=== PATIENT | male | born 1940 | race Caucasian/White ===

== ENCOUNTER 2017-07-04 12:27 | Inpatient (IN) | payer MEDICARE ==
[2017-07-04] MEDS ORDERED: fentaNYL* 50 MCG/ML 2 ML VIAL (100 MCG VIAL) IV SLOW PU ONE ×3 (12:48→19:39)
[2017-07-04 13:18] LABS: ABS Basophils 0.1 10^3/ul (0-0.2); ABS Eosinophils 0.1 10^3/ul (0-0.6); ABS Lymphocytes 1.8 10^3/ul (1.0-4.8); ABS Monocytes 0.4 10^3/ul (0-0.8); ABS Neutrophils 5.3 10^3/ul (1.5-7.7); ABS Nucleated RBC 0 10^3/ul; Hematocrit 35 % (42-52); Hemoglobin 11.6 g/dl (14.0-18.0); Mean Corpuscular HGB Conc 34 g/dl (31-36); Mean Corpuscular Hemoglobin 30 pg (27-31); Mean Corpuscular Volume 89 fL (80-94); Mean Platelet Volume 10 um3 (7.4-10.4); Nucleated Red Blood Cells % 0; Platelet Count 162 10^3/ul (150-450); Red Blood Count 3.87 10^6/ul (4.0-5.4); Red Cell Distribution Width 14 % (10.5-15); White Blood Count 7.7 10^3/ul (3.5-10.8)
[2017-07-04 13:24] LABS: INR 0.85 (0.77-1.02)
[2017-07-04 13:30] LABS: EGFR Non-African American 36.6 (>60)
--- NOTE | 2017-07-04 14:24 | RAD ---
Indication: Left hip pain. 2 views of left hip and AP view of the pelvis demonstrates no fracture. Minimal degenerative changes of the left hip is noted. Minimal degenerative changes of the right hip is noted. Pelvic ring and sacroiliac joints are unremarkable. IMPRESSION: MILD DEGENERATIVE CHANGES OF THE LEFT HIP WITHOUT FRACTURE.
--- NOTE | 2017-07-04 16:03 | RAD ---
Indication: Left leg edema. Duplex Doppler sonography of the deep venous system of the left lower extremity deep venous system was performed. Bilaterally the common femoral veins appear patent and compressible. Left proximal greater saphenous vein, proximal deep femoral vein, femoral vein, popliteal vein, posterior tibial veins and peroneal veins appear patent and compressible. IMPRESSION: NO EVIDENCE OF DEEP VENOUS THROMBOSIS IS IDENTIFIED.
[2017-07-04] MEDS ORDERED: NS 0.9% 1000 ML* 1,000 ML IV ONE (16:22)
[2017-07-04 16:47] LABS: Urine Appearance Clear; Urine Blood Negative (Negative); Urine Color Straw; Urine Ketones Negative (Negative); Urine Protein Negative (Negative); Urine Specific Gravity 1.009 (1.010-1.030); Urine Urobilinogen Negative (Negative)
[2017-07-04] MEDS ORDERED: Gadobenate* (CONTRAST) 529 MG/ML 10 ML SDV IV ONE (18:21)
--- NOTE | 2017-07-04 19:07 | RAD ---
Indication: Bilateral leg weakness. Image sequences: Sagittal T1, T2, STIR, axial T1 and T2-weighted images of the lumbar spine were obtained. Coronal and sagittal reconstructed images were obtained. Postcontrast fat-sat axial and sagittal T1-weighted images were also repeated. There are postoperative changes at the L5-S1 level presumably from decompressive laminectomy. There is suggestion of some epidural enhancing tissue although no fluid collection is identified. This may represent postoperative change. There is however at L3-L4 broad-based protrusion and facet and ligamentous hypertrophy resulting in a severe spinal stenosis at the L3-L4 level. At L5-S1 broad-based protrusion is noted. No central or foraminal stenosis is noted. At L4-L5 no focal protrusion is noted. Likely postoperative changes are noted. Moderate degree of facet arthropathy is noted. At L3-L4 there is broad-based protrusion. Facet and ligamentous hypertrophy results in a moderate to severe spinal stenosis at the L3-L4 level. At L2-L3 and L1-L2 no disc protrusion is identified. IMPRESSION: There is circumferential enhancing epidural tissue extending from approximately L4 through L5-S1. This is felt to represent postoperative change and scarring. This does not appear to be causing any mass effect on the thecal sac. There is severe spinal stenosis at L3-L4 due to facet and ligamentous hypertrophy and broad-based protrusion.
[2017-07-04] MEDS ORDERED: methylPREDNISolone TAB* 4 MG PO ONE (20:52)
[2017-07-04] MEDS ORDERED: fentaNYL PATCHs 100 MCG/HR TRANSDERM SCH (22:00)
[2017-07-04] MEDS: Cyclobenzaprine TAB* 10 MG PO PRN (23:36)
[2017-07-04] MEDS: Heparin VIAL(*) 5000 UNITS/ML VIAL (FIVE THOUSAND) SUBCUT SCH (23:41)
[2017-07-04] MEDS: fentaNYL PATCH 50 MCG/HR TRANSDERM SCH (23:52)
[2017-07-04] MEDS: fentaNYL PATCH 50 MCG/HR ONE ×2 (23:57→23:59)
--- NOTE | 2017-07-05 00:09 | HP ---
CC: Dr. Amezquita* HISTORY AND PHYSICAL: DATE OF ADMISSION: 07/04/17 PRIMARY CARE PROVIDER: Dr. Amezquita. CHIEF COMPLAINT: Left leg pain. HISTORY OF PRESENT ILLNESS: Mr. Harris is a 76-year-old male who has a history of chronic pain radiating from his back down to his knees who presented to the emergency room today with complaints of severe left leg pain. 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 He states he worked for 3 to 3-1/2 hours. He then went to go get gas. After he completed that task, he was sitting in his recliner for a while. At approximately 5 to 5:30 p.m., the patient decided he needed to get up to the bathroom. He states the bathroom was about 10 feet away and he got only 5 feet before he had severe left leg pain. The patient describes the pain as being in the left posterior mid femur region. The patient was able to ultimately get himself to the bathroom; however, the pain has progressed and at this point, he is no longer able to ambulate. The patient, of note, also has been having left-sided weakness including left arm and left leg weakness dating back approximately 3 weeks. The patient has been set up to see a neurologist through the [employer] [facility] system around 07/13/17. The patient notes that he ordinarily will end up dragging his left leg due to the weakness. PAST MEDICAL HISTORY: 1. Coronary artery disease, [id number], 2-vessel disease. 2. Type 2 diabetes. 3. Mixed dyslipidemia. 4. Hypertension. 5. Erectile dysfunction. 6. BHARATI. 7. Chronic back pain. 8. Stage 3 chronic kidney disease. 9. History of DVT following lumbar spinal stenosis surgery. 10. Depression. 11. Restless leg syndrome. 12. Obesity. 13. Osteoarthritis. PAST SURGICAL HISTORY: 1. Laminectomy. 2. Bilateral partial knee replacements. MEDICATIONS: 1. Aspirin 81 mg p.o. daily. 2. Coreg 25 mg p.o. twice daily. 3. Baclofen 5 mg p.o. t.i.d. 4. [place]-3 fatty acid 2 caps p.o. daily. 5. Gabapentin 600 mg p.o. daily. 6. Folic acid 400 mcg p.o. daily. 7. Fenofibrate 160 mg p.o. daily. 8. Celexa 20 mg p.o. daily. 9. Fentanyl patch 100 mcg topically q.72 hours. 10. Simvastatin 40 mg q.h.s. 11. Requip 0.5 mg p.o. q.h.s. 12. Protonix 40 mg p.o. q.h.s. 13. Percocet 10/325 one tab p.o. q.6 hours p.r.n. pain. 14. Hydralazine 25 mg p.o. t.i.d. 15. Humulin insulin via insulin pump. ALLERGIES: MORPHINE, PENICILLIN and ADHESIVE TAPE. FAMILY HISTORY: Mother at the age of 83. She had an ID. Father around the age of 80; he had Alzheimer's. SOCIAL HISTORY: The patient is a former smoker of approximately 30 years. He quit approximately 20 years ago. He quit drinking alcohol about 20 years ago. 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 He is . He has 2 biologic children and he and his have fostered approximately 20 children of which they have adopted 4. Most recently, he and his adopted a 6-year- old boy just a couple of weeks ago. REVIEW OF SYSTEMS: A complete 11-system review of systems was obtained. Pertinent positives and negatives are as per HPI and otherwise, the patient also complains of mild cough and shortness of breath stating this he developed this each winter and he also complains of depression. Otherwise, review of systems is negative. PHYSICAL EXAMINATION GENERAL: The patient is a well-developed, elderly obese male, sitting in the stretcher, in no acute distress. VITAL SIGNS: Blood pressure 155/69, pulse 63, respirations 16, temp 98.4, O2 sat 93% on room air. HEENT: Pupils are equal. They are round. Extraocular muscles are intact. Oropharynx is clear. Oral mucosa is moist. The patient wears upper and lower dentures. There is no submandibular, cervical or supraclavicular adenopathy. Thyroid is not enlarged. No thyroid nodules are noted. PULMONARY: Lungs are clear to auscultation anteriorly. CARDIAC: Normal S1 and S2. Regular rate and rhythm. I do not appreciate any murmurs. There is no lower extremity edema. ABDOMEN: Bowel sounds present. Abdomen is soft, nontender and nondistended. MUSCULOSKELETAL: There is no cyanosis or clubbing of the digits. There is limited range of motion of the bilateral lower extremities due to severe pain in the left posterior thigh. NEURO: Cranial nerves II through XII are grossly intact. Sensation is intact to light touch throughout. Strength is reduced in the left upper extremity specifically left clerical adjuster and left lower extremity though adequate strength testing of the lower extremities is limited due to severe pain. SKIN: Warm and dry. There are no rashes. The patient does have healing wounds to the right anterior sadler that he states he developed after mild trauma. PSYCH: The patient is alert. He is oriented x3. Affect appears appropriate. LABORATORY DATA/DIAGNOSTIC STUDIES: WBC 7.7, hemoglobin 11.6, hematocrit 35, platelets 162. INR 0.85. Sodium 135, potassium 4.8, chloride 105, CO2 25, BUN 35, creatinine 1.82, glucose 167, lactic acid 0.7, calcium 9.0, bilirubin 0.4, AST 19, ALT 14, alk phos 46, albumin 4.1. Urinalysis revealed a specific gravity of 1.009 and otherwise negative for signs of infection. Left hip x-ray reveals mild degenerative changes of the left hip without fracture. Left lower extremity venous Doppler negative for DVT. Lumbar spine MRI reveals circumferential enhancing epidural tissue extending from approximately L4 through L5-S1, which itself represent postoperative change and scarring. This does not appear to be causing any mass effect on the thecal sac. There is severe spinal stenosis at L3-4 due to facet and ligamentous hypertrophy and broad-based protrusion. ASSESSMENT AND PLAN: Mr. Harris is a 76-year-old male who has a history of chronic back pain, type 2 diabetes for which she manages with an insulin pump, coronary artery disease, hypertension and obstructive sleep apnea who presents to the emergency room with complaints of severe left posterior thigh pain. 1. Left posterior thigh pain. The etiology of this is not clear. I do question if this may be related to the severe stenosis noted at L3-4. The patient appears to be having grabbing pain every now and then. We will go ahead and try Flexeril 10 mg p.o. q.8 hours as well as methylprednisolone 25 mg p.o. x1 now. If the patient does have some mild improvement in his symptoms with the initiation of steroids, this taper can continue by 4 mg a day. The patient will be placed on p.r.n. Tylenol, oxycodone 5 to 10 mg every 4 hours for pain and fentanyl 50 mcg IV q.3 hours p.r.n. pain in addition to his 100 mcg fentanyl patch. The patient will have PT ordered. A neurosurgical consultation can be considered tomorrow morning for the severe spinal stenosis seen on MRI. In addition to the severe pain, the patient has been complaining of left lower extremity and upper extremity weakness. He was due to see Neurology as an outpatient later this month. If weakness continues to be an issue, a Neurology consultation could also be requested at this hospitalization. 2. Type 2 diabetes. I will go ahead and check a hemoglobin A1c. Blood glucose monitoring will be obtained before meals and bedtime. The patient will continue on his insulin pump and bolus with that as needed. 3. Coronary artery disease. The patient will be maintained on his aspirin, Coreg, TriCor, and simvastatin. He has no complaints of chest pain at this point. The patient follows with Dr. Davila as an outpatient and can follow up with her at his routine followup appointment. 4. Hypertension. The patient's blood pressure is [id number] elevated at this time, though I suspect this is likely related to pain. For now, we will continue to monitor his blood pressure on his home mediation regimen. 5. Stage 3 chronic kidney disease. The patient has [place] [facility] [place] at which time his creatinine ranged from 1.5 to 1.7. His creatinine now is slightly worse, but this likely represents progression of his chronic kidney disease. We will monitor his creatinine intermittently. 6. Restless legs. We will continue Requip. 7. Gastroesophageal reflux disease. Continue Protonix. 8. DVT prophylaxis. According to the Adult Thrombosis Prophylaxis Risk Factor Assessment Guide, the patient has a total risk factor score of 3 making him high risk. He will be placed on heparin 5000 units q.8 hours. 9. Code status is DNR. TIME SPENT: 65 minutes were spent admitting this patient. [id number]/[facility] #: [id number] [place]
--- NOTE | 2017-07-05 01:07 | ED ---
Femi Marsh Julia, scribed for Kriss Alejo MD on 07/04/17 at 1309 . Complex/Multi-Sys Presentation - HPI Summary HPI Summary: This patient is a 76 year old M BIBA ([facility]) to [facility] accompanied by family with a chief complaint of sudden L posterior leg in hamstring area since 17:00 yesterday. Patient reports SOB unchanged from baseline, and chills. Patient denies chest pain. The patient rates the pain 5/10 in severity and a 10/ 10 at standing. Symptoms aggravated by attempting to stand. Symptoms alleviated by nothing. EMS reports that patient took 2 Percocet tabs to manage pain. EMS report 98% O2 saturation on room air, blood glucose of 140, BP or 156/66, temperature of 98.4,and HR of 64. Patient denies trauma but states he slipped on ice while getting mail 07/01/17. Patient states that he caught himself with his hands and denies that he hit his pelvis during fall. Patient had lumbar spinal injection by Dr. Bearden(sp?) on 07/01/17, he reports no pain afterwards. Pt was able to ambulate unassisted and work around the home after the spinal injection until sudden onset of pain in his left post thigh yesterday at 17:00. Pt is concerned it is a DVT as he had a prior DVT after spinal stenosis surgery by Dr. Joseph several years ago. EMS state that pt was unable to even bear weight to stand and transfer to the stretcher for transport. Daughter states pt 's left leg gave out when he tried to stand yesterday due to pain. Patient has extensive cardiac history, history of blood clots, bilateral knee replacements. Patient is a type 2 diabetic with an insulin pump because of previous issues controlling blood glucose, but now checks 4x a day. Patient will be seeing a neurologist in [place], [place] due to L sided weakness, upper extremity and lower extremity. Pt states he drags his left foot, and with the pain since yesterday , he is dragging his left foot even more. Pt denies fever. - History Of Current Complaint Chief Complaint: EDExtremityLower Time Seen by Provider: 07/04/17 12:39 Hx Obtained From: Patient, Family/Linotype Operator - daughter, EMS Onset/Duration: Sudden Onset, Still Present Timing: Constant Severity Currently: Severe Severity Initially: Severe Location: Pain At: - L hamstring Character: Sharp Aggravating Factor(s): standing Alleviating Factor(s): nothing Associated Signs And Symptoms: Positive: SOB, Back Pain, Other - SOB unchanged from baseline, and chills Related History: Other - lumbar spinal injection 07/01/17 - Allergies/Home Medications Allergies/Adverse Reactions: Allergies Allergy/AdvReac Type Severity Reaction Status Date / Time Morphine Allergy Severe Hallucinati Verified 06/23/17 09:50 ons Penicillin V Allergy Intermediate Hives Verified 06/23/17 09:50 [From Penicillin VK Potassium] Adhesive Tape AdvReac Intermediate Hives; Verified 06/23/17 09:50 Blisters PMH/Surg Hx/FS Hx/Imm Hx Previously Healthy: No Endocrine/Hematology History: Reports: Hx Diabetes Denies: Hx Thyroid Disease Cardiovascular History: Reports: Hx Coronary Artery Disease, Hx Deep Vein Thrombosis - multiple DVT's/clotting issues, Hx Hypercholesterolemia, Hx Hypertension Respiratory History: Reports: Hx Sleep Apnea - current BiPAP user Denies: Hx Asthma, Hx Chronic Obstructive Pulmonary Disease (COPD) GI History: Reports: Hx Gastroesophageal Reflux Disease Denies: Hx Ulcer History: Reports: Hx Chronic Renal Failure - stage III Musculoskeletal History: Reports: Hx Arthritis, Hx Back Problems - Hx of low back pain, lower back laminectomy, Hx Orthopedic Injury - (left) shoulder surgery, Other Musculoskeletal History - Hx of Right Shoulder Pain; Restless Leg Syndrome Neurological History: Reports: 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 (left) shoulder surgery per records. 1984 cervical neck FX w/fusion. lower back laminectomy. Right knee replacement03/04. left knee replacement 05/04 Infectious Disease History: No Infectious Disease History: Denies: Hx Hepatitis, Hx Human Immunodeficiency Virus (HIV), Traveled Outside the [place] in Last 30 Days - Family History Known Family History: Positive: Cardiac Disease, Diabetes, Other - alzheimers and CA - Social History Lives: With Family Alcohol Use: None Substance Use Type: Reports: None Substance Use Comment - Amount & Last Used: fentanyl patch and percocet Smoking Status (MU): Former Smoker Type: Cigarettes Review of Systems Positive: Chills Cardiovascular: Negative Respiratory: Negative Gastrointestinal: Negative Positive: Arthralgia - left leg pain Skin: Negative Positive: Weakness - left upper and lower extremity Psychological: Normal All Other Systems Reviewed And Are Negative: Yes Physical Exam - Summary Physical Exam Summary: Appearance: Chronically Ill-appearing, severe pain distress, obese Skin: Warm, color reflects adequate perfusion, Patient is wearing fentanyl patch on posterior R shoulder Head: Normal Head/Face inspection Eyes: Conjunctiva clear ENT: Normal inspection Neck: Supple, no nodes, no JVD. Respiratory: Lungs clear, Normal breath sounds, no respiratory distress Cardio: RRR, No murmur, pulses normal, brisk capillary refill Abdomen: soft, nontender Bowel sounds: present Musculoskeletal: decreased strength left information assurance specialist and left leg/ ROM intact. No calf tenderness. No edema. Lower back tenderness. No ecchymosis or erythema at site of injections (3 injection sites at right post superior iliac crest). No pain on palpation of L hip or femur. Muscle wasting in the L thenar eminence. No obvious swelling or deformity of left leg. Neuro: Alert, muscle tone normal, facial symmetry, speech normal, sensory/motor weakness left leg and left information assurance specialist. Able to lift left leg off stretcher, decreased plantar flexion Psychological: Normal Triage Information Reviewed: Yes Vital Signs On Initial Exam: Initial Vitals Temp Pulse Resp BP Pulse Ox 98.4 F 62 14 146/57 96 07/04/17 12:33 07/04/17 12:33 07/04/17 12:33 07/04/17 12:33 07/04/17 12:33 Vital Signs Reviewed: Yes - [place] Coma Scale Coma Scale Total: 15 Diagnostics - Vital Signs Vital Signs Temp Pulse Resp BP Pulse Ox 07/04/17 12:33 98.4 F 62 14 146/57 96 - Laboratory Lab Results: Lab Results 07/04/17 07/04/17 07/04/17 Range/Units 13:11 13:11 13:11 WBC 7.7 (3.5-10.8) 10^3/ul RBC 3.87 L (4.0-5.4) 10^6/ul Hgb 11.6 L (14.0-18.0) g/dl Hct 35 L (42-52) % MCV 89 (80-94) fL MCH 30 (27-31) pg MCHC 34 (31-36) g/dl RDW 14 (10.5-15) % Plt Count 162 (150-450) 10^3/ul MPV 10 (7.4-10.4) um3 Neut % (Auto) 68.9 (38-83) % Lymph % (Auto) 24.0 L (25-47) % [place] % (Auto) 5.4 (1-9) % Eos % (Auto) 1.0 (0-6) % Baso % (Auto) 0.7 (0-2) % Absolute Neuts (auto) 5.3 (1.5-7.7) 10^3/ul Absolute Lymphs (auto) 1.8 (1.0-4.8) 10^3/ul Absolute Monos (auto) 0.4 (0-0.8) 10^3/ul Absolute Eos (auto) 0.1 (0-0.6) 10^3/ul Absolute Basos (auto) 0.1 (0-0.2) 10^3/ul Absolute Nucleated RBC 0 10^3/ul Nucleated RBC % 0 INR (Anticoag Therapy) 0.85 (0.77-1.02) APTT 29.9 (26.0-36.3) seconds Sodium 135 (133-145) mmol/L Potassium 4.8 (3.5-5.0) mmol/L Chloride 105 (101-111) mmol/L Carbon Dioxide 25 (22-32) mmol/L Anion Gap 5 (2-11) mmol/L BUN 35 H (6-24) mg/dL Creatinine 1.82 H (0.67-1.17) mg/dL Est GFR ( Amer) 47.1 (>60) Est GFR (Non-Af Amer) 36.6 (>60) BUN/Creatinine Ratio 19.2 (8-20) Glucose 167 H (70-100) mg/dL POC Glucose (mg/dL) (70-100) mg/dL Lactic Acid (0.5-2.0) mmol/L Calcium 9.0 (8.6-10.3) mg/dL Total Bilirubin 0.40 (0.2-1.0) mg/dL AST 19 (13-39) U/L ALT 14 (7-52) U/L Alkaline Phosphatase 46 (34-104) U/L Total Protein 6.8 (6.4-8.9) g/dL Albumin 4.1 (3.2-5.2) g/dL Globulin 2.7 (2-4) g/dL Albumin/Globulin Ratio 1.5 (1-3) Urine Color Urine Appearance Urine pH (5-9) Ur Specific [place] (1.010-1.030) Urine Protein (Negative) Urine Ketones (Negative) Urine Blood (Negative) Urine Nitrate (Negative) Urine Bilirubin (Negative) Urine Urobilinogen (Negative) Ur Leukocyte Esterase (Negative) Urine Glucose (Negative) 07/04/17 07/04/17 07/04/17 Range/Units 13:11 16:22 16:33 WBC (3.5-10.8) 10^3/ul RBC (4.0-5.4) 10^6/ul Hgb (14.0-18.0) g/dl Hct (42-52) % MCV (80-94) fL MCH (27-31) pg MCHC (31-36) g/dl RDW (10.5-15) % Plt Count (150-450) 10^3/ul MPV (7.4-10.4) um3 Neut % (Auto) (38-83) % Lymph % (Auto) (25-47) % [place] % (Auto) (1-9) % Eos % (Auto) (0-6) % Baso % (Auto) (0-2) % Absolute Neuts (auto) (1.5-7.7) 10^3/ul Absolute Lymphs (auto) (1.0-4.8) 10^3/ul Absolute Monos (auto) (0-0.8) 10^3/ul Absolute Eos (auto) (0-0.6) 10^3/ul Absolute Basos (auto) (0-0.2) 10^3/ul Absolute Nucleated RBC 10^3/ul Nucleated RBC % INR (Anticoag Therapy) (0.77-1.02) APTT (26.0-36.3) seconds Sodium (133-145) mmol/L Potassium (3.5-5.0) mmol/L Chloride (101-111) mmol/L Carbon Dioxide (22-32) mmol/L Anion Gap (2-11) mmol/L BUN (6-24) mg/dL Creatinine (0.67-1.17) mg/dL Est GFR ( Amer) (>60) Est GFR (Non-Af Amer) (>60) BUN/Creatinine Ratio (8-20) Glucose (70-100) mg/dL POC Glucose (mg/dL) 109 H (70-100) mg/dL Lactic Acid 0.7 (0.5-2.0) mmol/L Calcium (8.6-10.3) mg/dL Total Bilirubin (0.2-1.0) mg/dL AST (13-39) U/L ALT (7-52) U/L Alkaline Phosphatase (34-104) U/L Total Protein (6.4-8.9) g/dL Albumin (3.2-5.2) g/dL Globulin (2-4) g/dL Albumin/Globulin Ratio (1-3) Urine Color Straw Urine Appearance Clear Urine pH 5.0 (5-9) Ur Specific [place] 1.009 L (1.010-1.030) Urine Protein Negative (Negative) Urine Ketones Negative (Negative) Urine Blood Negative (Negative) Urine Nitrate Negative (Negative) Urine Bilirubin Negative (Negative) Urine Urobilinogen Negative (Negative) Ur Leukocyte Esterase Negative (Negative) Urine Glucose Negative (Negative) Result Diagrams: 07/04/17 13:11 07/04/17 13:11 Lab Statement: Any lab studies that have been ordered have been reviewed, and results considered in the medical decision making process. - Radiology Hip/Pelvis XR Radiology Interpretation Completed By: Radiologist - MILD DEGENERATIVE CHANGES OF THE LEFT HIP WITHOUT FRACTURE. ED Physician has reviewed this report. Lumbar Spine MRI Radiology Interpretation Completed By: Radiologist - There is circumferential enhancing epidural tissue extending from approximately L4 through L5-S1. This is felt to represent postoperative change and scarring. This does not appear to be causing any mass effect on the thecal sac. There is severe spinal stenosis at L3-L4 due to facet and ligamentous hypertrophy and broad-based protrusion ED Physician has reviewed this report. - Additional Comments Diagnostic Additional Comments: Venous Doppler US reveals NO EVIDENCE OF DEEP VENOUS THROMBOSIS IS IDENTIFIED. ED physician has reviewed this report. Re-Evaluation - Re-Evaluation 1st Re-Evaluation Time: 16:10 Comment: Patient was updated about results and course of treatment. Since neg venous doppler, will now proceed with MRI to r/o epidural abscess or spinal cord compression to account for pt's pain and weakness. 2nd Re-Evaluation Time: 19:35 Change: Unchanged - still in pain, will give more Fentanyl Complex Multi-Symp Course/Dx Course Of Treatment: Patient was given 50mcgs of Fentanyl IVx3 and relief of pain only momentarily and then pain recurred. With pt's hx of DVT's and sudden onset of left thigh pain, venous doppler was done which was negative. Pt remained in significant pain, without definitive cause so MRI was done after discussion with Dr. Fernandez, who concurred that it was indication for an emergency MRI, with pt's recent hx of spinal injection and left leg pain and weakness. MRI reveals severe spinal stenosis at L3 and L4. and epidural thickening at L4-S1 consistent with prior surgery, without evidence of spinal cord compression or epidural abscess. Pt has continued pain despite Fentanyl IV x 3, in addition to his fentanyl patch. Pt will be admitted for further evaluation of left sided weakness (subacute) and further evaluation and treatment of intractable left leg pain. Dr. Guzman agrees to admit at 19:45. - Diagnoses Differential Diagnoses/HQI/PQRI: Sepsis, Other - DVT, epidural abscess, spinal cord compression Provider Diagnoses: Intractable neuropathic pain of left lower extremity, Spinal stenosis, Acute exacerbation of chronic low back pain - Physician Notifications Discussed Care Of Patient With: Laura Fernandez Time Discussed With Above Provider: 19:05 Instructed by Provider To: Other - Dr. Fernandez concurred with indication for MRI and reported patient has severe spinal stenosis of L3 and L4. There is no evidence of spinal cord compression or abcess. Discharge - Discharge Plan Condition: Stable Disposition: ADMITTED TO [facility] documentation as recorded by the Femi guold Julia accurately reflects the service I personally performed and the decisions made by , Kriss Alejo MD.
[2017-07-05] MEDS: fentaNYL* 50 MCG/ML 2 ML VIAL (100 MCG VIAL) IV SLOW PU PRN ×5 (01:35→20:50)
[2017-07-05] MEDS: oxyCODONE TAB* 5 MG TAB PO PRN ×5 (05:37→20:49)
[2017-07-05] MEDS: Heparin VIAL(*) 5000 UNITS/ML VIAL (FIVE THOUSAND) SUBCUT SCH ×3 (05:38→20:59)
[2017-07-05] MEDS: hydrALAZINE TAB* 25 MG PO SCH ×3 (07:46→20:50)
[2017-07-05] MEDS: Carvedilol TAB* 25 MG PO SCH ×2 (07:47→20:49)
[2017-07-05] MEDS: Citalopram TAB* 20 MG PO SCH (07:47)
[2017-07-05] MEDS: Gabapentin CAP(*) 300 MG PO SCH (07:47)
[2017-07-05] MEDS: Aspirin EC Low Dose* 81 MG TAB.EC PO SCH (07:47)
[2017-07-05] MEDS ORDERED: FENOFIBRATE 160 MG PO SCH (09:00)
[2017-07-05] MEDS ORDERED: FOLIC ACID 400 MCG PO SCH (09:00)
[2017-07-05] MEDS: fentaNYL Patch Check Q Shift 1 NOTE SCH ×2 (09:58→20:48)
[2017-07-05] MEDS: FOLIC ACID 800 MCG PO SCH (12:58)
[2017-07-05] MEDS: FENOFIBRATE 160 MG PO SCH (12:58)
[2017-07-05] MEDS: INSULIN REGULAR 500 UNIT/ML SUBCUT SCH (15:15)
--- NOTE | 2017-07-05 16:11 | CONSULT ---
Consult Consult: Neurosurgery Consult Date of Admission: 07/04/17 Date of Consult: 07/05/17 Reason for Consult: Lumbar stenosis Referring Provider: Loida Arvizu NP HPI: This is a 76 year old male with past medical history significant for CAD, diabetes, lumbar stenosis, HTN and kidney disease who presented to the [facility] ED with severe left lower extremity pain and weakness. He states that he has a history of chronic low back and lower extremity pain but has never experienced pain to this severity. Prior to this exacerbation, the low back and lower extremity pain was worse with walking or sitting and improved with standing still. He also has a history of lumbar decompression with Dr. Joseph on . Prior to surgery he was experiencing right sided low back to hip pain which improved after surgery. The patient reports that his recovery was complicated; post-operatively he experienced kidney injury and RLE DVT requiring admission to ICU for monitoring and treatment. Symptoms improved for several years until the past year or more when the back pain and lower extremity pain in addition to generalized weakness slowly returned. Per the patient, he follows with Marcia Bo and Dr. Lockwood at the pain clinic for management of chronic pain. He states that he has received right sided low back trigger point injections with Dr. Lockwood in the past and recently restarted this treatment, last injection being on 07/01/17. On 07/03/17, the patient was outside clearing ice and plowing snow, performing these activities without difficulty. Later, while he was walking to the bathroom he experienced a sudden onset of severe LLE pain, beginning in the left hip area and radiating to the posterior thigh down to the knee, sparing the lower leg and foot. He did not fall when pain began. Tingling also present in this distribution. He again notes the weakness in lower legs but is unable to specify activities with which he notices weakness. The pain was so severe that he was unable to ambulate or bear weight on the LLE. He was taking previously prescribed pain medication while at home. Currently, pain is being managed with IV and PO pain medications. He continues to experience shooting pain with movements and is unable to ambulate well. He also complains of weakness and pain in the left upper extremity beginning 1- 2 months ago. He reports pain beginning in the left shoulder region and radiating down the triceps to the distal arm and into the thumb and index fingers of the left hand. This pain was present for a couple of weeks during which time he also noticed weakness in healthcare sales representative and finger strength of the left hand. He treated the pain with a copper sleeve for a few weeks. This resolved the pain but the weakness persists. He denies pain and numbness in the upper extremities now. Past Medical History: 1. Lumbar spinal stenosis 2. CAD- mild to moderate, 2 vessel disease 3. Type 2 diabetes requiring insulin 4. Dyslipidemia 5. HTN 6. BHARATI 7. Chronic low back pain 8. Stage 3 kidney disease 9. History of RLE DVT after lumbar decompression 10. Depression 11. Restless leg syndrome 12. Obesity 13. Osteoarthritis Past Surgical History: 1. Right and left shoulder surgeries 2. Decompressive lumbar laminectomy, Dr. Joseph 3. Bilateral partial knee replacements 4. Anterior cervical discectomy and fusion Home Medications: 1. Citalopram Hydrobromide 20 mg PO DAILY 05/17/12 [History Confirmed 07/04/17] 2. Folic Acid [Th Folic Acid] 800 mcg PO DAILY 05/17/12 [History Confirmed 07/05] 3. Insulin Infusion Pump [Accu-Chek Spirit Insulin] 1 kit PO DAILY 05/17/12 [ History Confirmed 07/04/17] 4. Pantoprazole Sodium [Protonix] 2 tab PO BEDTIME 05/17/12 [History Confirmed 07/04/17] 5. Ropinirole Hydrochloride [Requip] 2 tab PO BEDTIME 05/17/12 [History Confirmed 07/04/17] 6. Simvastatin 2 tab PO BEDTIME 05/17/12 [History Confirmed 07/04/17] 7. Sledge-3 Fatty Acids [Fish Oil] 2 cap PO DAILY 09/29/12 [History Confirmed ] 8. hydrALAZINE TAB* [Apresoline TAB*] 25 mg PO TID 09/29/12 [History Confirmed 07/04/17] 9. Aspirin [Aspir-81] 81 mg PO DAILY 05/16/13 [History Confirmed 07/04/17] 10. Carvedilol TAB* [Coreg TAB*] 25 mg PO BID 05/16/13 [History Confirmed ] 11. Fenofibrate 160 mg PO DAILY 05/16/13 [History Confirmed 07/04/17] 12. Gabapentin CAP(*) [Neurontin CAP(*)] 600 mg PO DAILY 02/18/15 [History Confirmed 07/04/17] 13. fentaNYL PATCH 50 MCG/HR* [Duragesic PATCH 50 Mcg/Hr*] 50 mcg TRANSDERM Q72H 04/29/15 [History Confirmed 07/04/17] 14. Baclofen TAB* [Lioresal TAB*] 5 mg PO TID 09/04/15 [History Confirmed ] 15. oxyCODONE/Acetamin 10/325(NF) [Percocet 10/325 (NF)] 1 tab PO Q6H PRN [History Confirmed 07/04/17] Allergies: 1. Morphine 2. Penicillin V 3. Adhesive tape Social History: This patient is a former smoker. He does not consume alcohol. ROS: FUll ROS completed. Pertinent findings stated in HPI, all others negative. Physical Exam: Vital Signs: Temp Pulse Resp BP Pulse Ox 97.4 F 66 16 169/62 97 07/05/17 12:01 07/05/17 12:01 07/05/17 15:16 07/05/17 12:01 07/05/17 12:01 General: Alert and oriented. Sitting comfortably on bedside. Intermittent acute pain with movement and twisting. HEENT: Head is normocephalic and atraumatic. Neck: Supple. Well healed right transverse surgical wound. Neck is nontender anteriorly and posteriorly. CV: Radial pulses 2+ and equal. Pedal pulses 2+ and equal. Lungs: Breathing is nonlabored and lungs are clear. Abdomen:The abdomen is moderately round. Nontender to palpation. Normoactive bowel sounds. Hips: Hips are nontender to palpation bilaterally. No pain with hip rotation bilaterally. Neuro: Speech is clear and coherent. Answers questions appropriately. CN II-XII intact. Sensation intact and equal bilaterally. Director Of State strength 4/5 bilaterally. Instrinsic hand strength 5/5 right and 4/5 left. RLE strength is 5/5. LLE strength difficult to assess secondary to pain: Left EHL, dorsiflexion and anterior tibialis 5/5. Left hamstring, hip flexor and quadricep unable to assess. SLR positive on the left, Right SLR creates left sided pain. Extremities: Mild swelling of bilateral lower extremities. No clubbing or cyanosis. Imagin. 07/04/17- MRI of the lumbar spine shows post-operative changes at L4-5 and L5 -S1. Severe stenosis at L3-4. Assessment/Plan: This patient presents with LLE pain with a history of lumbar stenosis and decompression in 2007. MRI of the lumbar spine was reviewed with the patient showing stenosis at L3-4. We discussed potential treatment options including surgery with decompressive lumbar laminectomy L3-4. Considering his medical history, he will need cardiac and medical clearance prior to scheduling of surgery. Continue pain management. This case was discussed with Dr. Anderson. He will further evaluate the patient and discuss potential surgery with the patient tomorrow morning. Plan also discussed with Loida Arvizu NP.
[2017-07-05] MEDS: Cyclobenzaprine TAB* 10 MG PO PRN ×2 (16:28→20:50)
--- NOTE | 2017-07-05 18:31 | RAD ---
INDICATION: Preoperative chest x-ray COMPARISON: Chest x-ray June 22, 2012 TECHNIQUE: Single AP portable view of the chest was obtained. FINDINGS: Image quality is compromised due to the relative inferiority of a portable chest x-ray. The heart and mediastinum exhibit normal size and contour. The lungs are grossly clear. There is no evidence of a large pleural effusion. Visualized bones are normal for the patient's age. IMPRESSION: No radiographic evidence for acute cardiopulmonary abnormality on this portable chest x-ray.
--- NOTE | 2017-07-05 18:44 | PN ---
Subjective Date of Service: 07/05/17 Interval History: c/o lower pain and muscles spasms, worse with movement. c/o radiation to left leg and pain stopping at the left knee. Denies n/V/D denies abd pain. denies chest pain or shortness of breath. Family History: Unchanged from Admission Social History: Unchanged from Admission Past Medical History: Unchanged from Admission Objective Active Medications: Acetaminophen (Tylenol Tab*) 650 mg PO Q4H PRN PRN Reason: PAIN Aspirin (Aspirin Ec Low Dose*) 81 mg PO DAILY [facility] Last Admin: 07/05/17 07:47 Dose: 81 mg Atorvastatin Calcium (Lipitor*) 20 mg PO BEDTIME [facility] Carvedilol (Coreg Tab*) 25 mg PO BID [facility] Last Admin: 07/05/17 07:47 Dose: 25 mg Citalopram Hydrobromide (Celexa Tab*) 20 mg PO DAILY [facility] Last Admin: 07/05/17 07:47 Dose: 20 mg Cyclobenzaprine HCl (Flexeril Tab*) 10 mg PO TID PRN PRN Reason: SPASMS Last Admin: 07/05/17 16:28 Dose: 10 mg Fenofibrate (Tricor(Nf)) 160 mg PO DAILY [facility] PRN Reason: Protocol Last Admin: 07/05/17 12:58 Dose: 160 mg Fentanyl (Duragesic Patch 50 Mcg/Hr*) 50 mcg TRANSDERM Q72H [facility] Last Admin: 07/04/17 23:52 Dose: 50 mcg Fentanyl Citrate (Fentanyl*) 50 mcg IV SLOW PU Q3H PRN PRN Reason: PAIN Last Admin: 07/05/17 14:39 Dose: 50 mcg Gabapentin (Neurontin Cap(*)) 600 mg PO DAILY [facility] Last Admin: 07/05/17 07:47 Dose: 600 mg Heparin Sodium (Porcine) (Heparin Vial(*)) 5,000 units SUBCUT Q8HR [facility] Last Admin: 07/05/17 14:24 Dose: 5,000 units Hydralazine HCl (Apresoline Tab*) 25 mg PO TID [facility] Last Admin: 07/05/17 14:26 Dose: 25 mg Insulin Human Regular (Humulin R U-500 (Concentr) 400 unit SUBCUT Q72H [facility] Last Admin: 07/05/17 15:15 Dose: 400 unit Pto: Folic Acid 800 (Mcg Tablet Otc) 0 mcg PO DAILY [facility] Last Admin: 07/05/17 12:58 Dose: 800 mcg Omeprazole (Prilosec Cap*) 20 mg PO BEDTIME [facility] Oxycodone HCl (Roxycodone Tab*) 5 mg PO Q4H PRN PRN Reason: pain 1-5 Last Admin: 07/05/17 07:46 Dose: 5 mg Oxycodone HCl (Roxycodone Tab*) 10 mg PO Q4H PRN PRN Reason: pain 6-10 Last Admin: 07/05/17 16:29 Dose: 10 mg Pharmacy Profile Note (Fentanyl Patch Check Q Shift) 1 note N/A 0900,2100 [facility] Last Admin: 07/05/17 09:58 Dose: 1 note Ropinirole HCl (Requip Tab*) 0.5 mg PO BEDTIME [facility] Vital Signs - 8 hr 07/05/17 07/05/17 07/05/17 10:42 12:01 12:21 Temperature 97.4 F Pulse Rate 66 Respiratory 16 15 16 Rate Blood Pressure 169/62 (mmHg) O2 Sat by Pulse 97 Oximetry 07/05/17 07/05/17 07/05/17 12:58 14:39 15:16 Temperature Pulse Rate Respiratory 18 18 16 Rate Blood Pressure (mmHg) O2 Sat by Pulse Oximetry 07/05/17 07/05/17 07/05/17 15:43 16:28 16:29 Temperature 98.6 F Pulse Rate 66 Respiratory 18 18 18 Rate Blood Pressure 159/61 (mmHg) O2 Sat by Pulse 96 Oximetry Oxygen Devices in Use Now: None Appearance: appears uncomfortable sitting in the chair, Eyes: No Scleral Icterus Neck: NL Appearance and Movements; NL JVP, Trachea Midline Respiratory: Symmetrical Chest Expansion and Respiratory Effort, Clear to Auscultation Cardiovascular: NL Sounds; No Murmurs; No JVD, RRR, No Edema Abdominal: NL Sounds; No Tenderness; No Distention Extremities: No Edema, No Clubbing, Cyanosis Skin: No Rash or Ulcers Neurological: Alert and Oriented x 3, - - tongue is midline, smile is equal, hand energy derivatives trader equal, no neuro deficit noted. sensation intact to bilat lower extremities. c/o pain with raising left leg, Result Diagrams: 07/06/17 06:09 07/06/17 06:09 Additional Lab and Data: Lab Results 07/04/17 07/04/17 07/04/17 Range/Units 13:11 13:11 13:11 WBC 7.7 (3.5-10.8) 10^3/ul RBC 3.87 L (4.0-5.4) 10^6/ul Hgb 11.6 L (14.0-18.0) g/dl Hct 35 L (42-52) % MCV 89 (80-94) fL MCH 30 (27-31) pg MCHC 34 (31-36) g/dl RDW 14 (10.5-15) % Plt Count 162 (150-450) 10^3/ul MPV 10 (7.4-10.4) um3 Neut % (Auto) 68.9 (38-83) % Lymph % (Auto) 24.0 L (25-47) % [place] % (Auto) 5.4 (1-9) % Eos % (Auto) 1.0 (0-6) % Baso % (Auto) 0.7 (0-2) % Absolute Neuts (auto) 5.3 (1.5-7.7) 10^3/ul Absolute Lymphs (auto) 1.8 (1.0-4.8) 10^3/ul Absolute Monos (auto) 0.4 (0-0.8) 10^3/ul Absolute Eos (auto) 0.1 (0-0.6) 10^3/ul Absolute Basos (auto) 0.1 (0-0.2) 10^3/ul Absolute Nucleated RBC 0 10^3/ul Nucleated RBC % 0 INR (Anticoag Therapy) 0.85 (0.77-1.02) APTT 29.9 (26.0-36.3) seconds Sodium 135 (133-145) mmol/L Potassium 4.8 (3.5-5.0) mmol/L Chloride 105 (101-111) mmol/L Carbon Dioxide 25 (22-32) mmol/L Anion Gap 5 (2-11) mmol/L BUN 35 H (6-24) mg/dL Creatinine 1.82 H (0.67-1.17) mg/dL Est GFR ( Amer) 47.1 (>60) Est GFR (Non-Af Amer) 36.6 (>60) BUN/Creatinine Ratio 19.2 (8-20) Glucose 167 H (70-100) mg/dL POC Glucose (mg/dL) (70-100) mg/dL Lactic Acid (0.5-2.0) mmol/L Calcium 9.0 (8.6-10.3) mg/dL Total Bilirubin 0.40 (0.2-1.0) mg/dL AST 19 (13-39) U/L ALT 14 (7-52) U/L Alkaline Phosphatase 46 (34-104) U/L Total Protein 6.8 (6.4-8.9) g/dL Albumin 4.1 (3.2-5.2) g/dL Globulin 2.7 (2-4) g/dL Albumin/Globulin Ratio 1.5 (1-3) Urine Color Urine Appearance Urine pH (5-9) Ur Specific [place] (1.010-1.030) Urine Protein (Negative) Urine Ketones (Negative) Urine Blood (Negative) Urine Nitrate (Negative) Urine Bilirubin (Negative) Urine Urobilinogen (Negative) Ur Leukocyte Esterase (Negative) Urine Glucose (Negative) 07/04/17 07/04/17 07/04/17 Range/Units 13:11 16:22 16:33 WBC (3.5-10.8) 10^3/ul RBC (4.0-5.4) 10^6/ul Hgb (14.0-18.0) g/dl Hct (42-52) % MCV (80-94) fL MCH (27-31) pg MCHC (31-36) g/dl RDW (10.5-15) % Plt Count (150-450) 10^3/ul MPV (7.4-10.4) um3 Neut % (Auto) (38-83) % Lymph % (Auto) (25-47) % [place] % (Auto) (1-9) % Eos % (Auto) (0-6) % Baso % (Auto) (0-2) % Absolute Neuts (auto) (1.5-7.7) 10^3/ul Absolute Lymphs (auto) (1.0-4.8) 10^3/ul Absolute Monos (auto) (0-0.8) 10^3/ul Absolute Eos (auto) (0-0.6) 10^3/ul Absolute Basos (auto) (0-0.2) 10^3/ul Absolute Nucleated RBC 10^3/ul Nucleated RBC % INR (Anticoag Therapy) (0.77-1.02) APTT (26.0-36.3) seconds Sodium (133-145) mmol/L Potassium (3.5-5.0) mmol/L Chloride (101-111) mmol/L Carbon Dioxide (22-32) mmol/L Anion Gap (2-11) mmol/L BUN (6-24) mg/dL Creatinine (0.67-1.17) mg/dL Est GFR ( Amer) (>60) Est GFR (Non-Af Amer) (>60) BUN/Creatinine Ratio (8-20) Glucose (70-100) mg/dL POC Glucose (mg/dL) 109 H (70-100) mg/dL Lactic Acid 0.7 (0.5-2.0) mmol/L Calcium (8.6-10.3) mg/dL Total Bilirubin (0.2-1.0) mg/dL AST (13-39) U/L ALT (7-52) U/L Alkaline Phosphatase (34-104) U/L Total Protein (6.4-8.9) g/dL Albumin (3.2-5.2) g/dL Globulin (2-4) g/dL Albumin/Globulin Ratio (1-3) Urine Color Straw Urine Appearance Clear Urine pH 5.0 (5-9) Ur Specific [place] 1.009 L (1.010-1.030) Urine Protein Negative (Negative) Urine Ketones Negative (Negative) Urine Blood Negative (Negative) Urine Nitrate Negative (Negative) Urine Bilirubin Negative (Negative) Urine Urobilinogen Negative (Negative) Ur Leukocyte Esterase Negative (Negative) Urine Glucose Negative (Negative) Assess/Plan/Problems-Billing Assessment: Mr. Harris 76 y.o male that presented to the emergency room for low back pain for found to have severe spinal stenosis. He carries a history of DM, CAD, htn. He currently uses an insulin pump for diabetic control. He was seen and evaluated by Neurosurgery and will need a decompression lumbar surgery. - Patient Problems (1) Back pain Current Visit: Yes Status: Acute Code(s): M54.9 - DORSALGIA, UNSPECIFIED SNOMED Code(s): 553904852 Comment: suspect this is related to: will continue pain medications and muscle relaxers Had CT myelogram complete today neurosurgery - pending OR tomorrow Will make NPO after midnight (2) CAD (coronary artery disease) Current Visit: Yes Status: Acute Code(s): I25.10 - ATHSCL HEART DISEASE OF [place] CORONARY ARTERY W/O ANG PCTRS SNOMED Code(s): 80769155 Comment: stable Denies chest pain with ambulation or exertion. good excercise tolerance; able to climb stair and shovel snow/ ice without chest pain or severe shortness of breath CAD is currently medically optimized with medical treatment seen by cardiology in 01/2017 was cardiac stable at that time. Will need to continue betablocker pre-op Last echo last nuclear stress test was in 2011, he does have a significant risk factors for surgery. revised cardiac risk index for pre-op risk is 11%- this was reviewed with the patient and he is aware of the cardiac risk during surgery. He is currently medically optimized and a acceptable candidate for surgery (3) CKD (chronic kidney disease) Current Visit: Yes Status: Acute Code(s): N18.9 - CHRONIC KIDNEY DISEASE, UNSPECIFIED SNOMED Code(s): 982157983 Comment: will continue to monitor BMP will start IV hydration after midnight while the patient is NPO (4) Diabetes mellitus Current Visit: Yes Status: Acute Code(s): E11.9 - TYPE 2 DIABETES MELLITUS WITHOUT COMPLICATIONS SNOMED Code(s): 50433072 Comment: continue insulin pump will stop bolus dosing while NPO, will stop insulin pump at 8 am and start q2 hour accuchecks accuchecks Q AC and HS- when insulin pump is infusing Status and Disposition: inpatient: surgery pending
[2017-07-05] MEDS: Atorvastatin* 20 MG TAB PO SCH (20:49)
[2017-07-05] MEDS: Omeprazole CAP* 20 MG PO SCH (20:49)
[2017-07-05] MEDS: Ropinirole TAB* 0.5 MG TAB PO SCH (20:49)
[2017-07-05] MEDS ORDERED: NS 0.9% 1000 ML* 1,000 ML IV SCH (23:30)
[2017-07-06] MEDS: fentaNYL* 50 MCG/ML 2 ML VIAL (100 MCG VIAL) IV SLOW PU PRN ×7 (00:18→21:18)
[2017-07-06] MEDS: oxyCODONE TAB* 5 MG TAB PO PRN ×3 (02:55→23:24)
[2017-07-06] MEDS: Heparin VIAL(*) 5000 UNITS/ML VIAL (FIVE THOUSAND) SUBCUT SCH ×3 (04:38→21:21)
[2017-07-06 06:51] LABS: ABS Basophils 0 10^3/ul (0-0.2); ABS Eosinophils 0.1 10^3/ul (0-0.6); ABS Lymphocytes 3.1 10^3/ul (1.0-4.8); ABS Monocytes 0.6 10^3/ul (0-0.8); ABS Neutrophils 3.1 10^3/ul (1.5-7.7); ABS Nucleated RBC 0 10^3/ul; Eosinophil % 0.9 % (0-6); Hematocrit 33 % (42-52); Hemoglobin 11.1 g/dl (14.0-18.0); INR 0.86 (0.77-1.02); Lymphocyte % 45.6 % (25-47); Mean Corpuscular HGB Conc 33 g/dl (31-36); Mean Corpuscular Hemoglobin 30 pg (27-31); Mean Corpuscular Volume 88 fL (80-94); Mean Platelet Volume 10 um3 (7.4-10.4); Nucleated Red Blood Cells % 0; Platelet Count 134 10^3/ul (150-450); Red Blood Count 3.76 10^6/ul (4.0-5.4); Red Cell Distribution Width 14 % (10.5-15); White Blood Count 6.9 10^3/ul (3.5-10.8)
[2017-07-06] MEDS ORDERED: Dextrose 50% Syringe 50 ML* 25 GM/50 ML SYRINGE IV PUSH PRN ×3 (08:17→16:02)
[2017-07-06] MEDS: Carvedilol TAB* 25 MG PO SCH ×2 (09:36→21:06)
[2017-07-06] MEDS: FENOFIBRATE 160 MG PO SCH (09:36)
[2017-07-06] MEDS: Citalopram TAB* 20 MG PO SCH (09:36)
[2017-07-06] MEDS: Aspirin EC Low Dose* 81 MG TAB.EC PO SCH (09:36)
[2017-07-06] MEDS: Gabapentin CAP(*) 300 MG PO SCH (09:53)
[2017-07-06] MEDS: FOLIC ACID 800 MCG PO SCH (09:54)
[2017-07-06] MEDS: hydrALAZINE TAB* 25 MG PO SCH ×3 (09:54→21:06)
[2017-07-06 09:56] LABS: EGFR Non-African American 33.8 (>60)
[2017-07-06] MEDS ORDERED: D5W 1/2 NS 1000 ML BAG* 1,000 ML IV SCH ×2 (11:00)
--- NOTE | 2017-07-06 12:55 | RAD ---
HISTORY: Left lower extremity pain COMPARISONS: MRI dated July 04, 2017, myelogram dated July 06, 2017 TECHNIQUE: Multiple contiguous axial CT scans were obtained of the lumbar spine, after the administration of intrathecal contrast performed as a separate procedure FINDINGS: SPINAL CANAL: There is an incomplete myelographic block at L3-L4. The visualized portion of the spinal cord, conus, and cauda equina are normal in caliber and position. ALIGNMENT: There is grade 1 retrolisthesis of L3 on L4. VERTEBRAL BODIES: There is multilevel anterolateral marginal osteophyte formation. Lumpectomy defects are noted at L4-L5 and L5-S1. JOINTS: There is facet osteoarthritic change most pronounced along the lower lumbar spine. MUSCULATURE: Unremarkable INTERVERTEBRAL DISCS: There is diffuse loss of intervertebral disc height throughout the spine. AXIAL IMAGES: T11-T12: There is no significant neural foraminal narrowing or central canal stenosis. T12-L1: There is no significant neural foraminal narrowing or central canal stenosis. L1-L2: There is no osseous neural foraminal narrowing or central canal stenosis. L2-L3: There is no osseous neural foraminal narrowing or central canal stenosis. L3-L4: There is a disc bulge with ligamentous hypertrophy. There is bilateral facet hypertrophy. There is marginal osteophyte formation at the neural foramina bilaterally. There is severe bilateral neural foraminal narrowing. There is severe narrowing of the central canal. L4-L5: A laminectomy defect is noted. There is bilateral facet hypertrophy. There is moderate bilateral neural foraminal narrowing. L5-S1: A laminectomy defect is noted. There is marginal osteophyte formation at the neural foramina bilaterally. There is severe bilateral neural foraminal narrowing. SOFT TISSUES: There is atherosclerosis of the abdominal aorta OTHER: None IMPRESSION: 1. DEGENERATIVE DISC DISEASE AND OSTEOARTHRITIS, RESULTING IN SEVERE NARROWING OF THE CENTRAL CANAL AT L3-L4 WITH AN INCOMPLETE MYELOGRAPHIC BLOCK. 2. POSTSURGICAL CHANGE. 3. THERE IS MULTILEVEL NEURAL FORAMINAL NARROWING DESCRIBED ABOVE.
--- NOTE | 2017-07-06 13:17 | RAD ---
CPT II Codes: 6045F. Indication: Leg pain, spinal stenosis. Informed consent was obtained from the patient. Using usual aseptic technique and lidocaine as local anesthetic and utilizing a 22-gauge spinal needle lumbar puncture was performed. Approximately 13 mL of Omnipaque 180 was then injected into the thecal sac. There appears to be stenosis at the L3-L4 level. Approximately 1 minute and 21 seconds of fluoroscopy time was used. IMPRESSION: Successful placement of 13 mL of Omnipaque 180 into the thecal sac.
[2017-07-06] MEDS: Cyclobenzaprine TAB* 10 MG PO PRN ×2 (14:05→21:06)
[2017-07-06] MEDS: Insulin LISPRO* 1 UNITS UNIT SUBCUT SCH ×2 (16:47→21:07)
[2017-07-06] MEDS: fentaNYL Patch Check Q Shift 1 NOTE SCH ×2 (16:59→21:07)
--- NOTE | 2017-07-06 18:25 | PN ---
Subjective Date of Service: 07/06/17 Interval History: Continue to c/o back pain worse with movement. denies chest pain, shortness of breath or abd pain. denies n/v/d Family History: Unchanged from Admission Social History: Unchanged from Admission Past Medical History: Unchanged from Admission Objective Active Medications: Acetaminophen (Tylenol Tab*) 650 mg PO Q4H PRN PRN Reason: PAIN Aspirin (Aspirin Ec Low Dose*) 81 mg PO DAILY [facility] Last Admin: 07/06/17 09:36 Dose: Not Given Atorvastatin Calcium (Lipitor*) 20 mg PO BEDTIME [facility] Last Admin: 07/05/17 20:49 Dose: 20 mg Carvedilol (Coreg Tab*) 25 mg PO BID [facility] Last Admin: 07/06/17 09:36 Dose: Not Given Citalopram Hydrobromide (Celexa Tab*) 20 mg PO DAILY [facility] Last Admin: 07/06/17 09:36 Dose: Not Given Cyclobenzaprine HCl (Flexeril Tab*) 10 mg PO TID PRN PRN Reason: SPASMS Last Admin: 07/06/17 14:05 Dose: 10 mg Dextrose (D50w Syringe 50 Ml*) 12.5 gm IV PUSH .FOR FS < 60 - SS PRN PRN Reason: FS < 60 Famotidine (Pepcid Iv*) 20 mg IV ONCE ONE Stop: 07/07/17 08:01 Fenofibrate (Tricor(Nf)) 160 mg PO DAILY [facility] PRN Reason: Protocol Last Admin: 07/06/17 09:36 Dose: Not Given Fentanyl (Duragesic Patch 50 Mcg/Hr*) 50 mcg TRANSDERM Q72H [facility] Last Admin: 07/04/17 23:52 Dose: 50 mcg Fentanyl Citrate (Fentanyl*) 50 mcg IV SLOW PU Q3H PRN PRN Reason: PAIN Last Admin: 07/06/17 18:17 Dose: 50 mcg Gabapentin (Neurontin Cap(*)) 600 mg PO DAILY [facility] Last Admin: 07/06/17 09:53 Dose: Not Given Heparin Sodium (Porcine) (Heparin Vial(*)) 5,000 units SUBCUT Q8HR [facility] Last Admin: 07/06/17 15:46 Dose: Not Given Hydralazine HCl (Apresoline Tab*) 25 mg PO TID [facility] Last Admin: 01/16/18 14:05 Dose: 25 mg Dextrose/Sodium Chloride (D5w 1/2 Ns 1000 Ml Bag*) 1,000 mls @ 100 mls/hr IV PER RATE [facility] Last Admin: 07/06/17 10:59 Dose: 100 mls/hr Insulin Human Lispro (Humalog*) 0 units SUBCUT ACHS [facility] PRN Reason: Protocol Last Admin: 07/06/17 16:47 Dose: 6 units Pto: Folic Acid 800 (Mcg Tablet Otc) 0 mcg PO DAILY [facility] Last Admin: 07/06/17 09:54 Dose: Not Given Omeprazole (Prilosec Cap*) 20 mg PO BEDTIME [facility] Last Admin: 07/05/17 20:49 Dose: 20 mg Oxycodone HCl (Roxycodone Tab*) 5 mg PO Q4H PRN PRN Reason: pain 1-5 Last Admin: 07/05/17 07:46 Dose: 5 mg Oxycodone HCl (Roxycodone Tab*) 10 mg PO Q4H PRN PRN Reason: pain 6-10 Last Admin: 07/06/17 18:16 Dose: 10 mg Pharmacy Profile Note (Fentanyl Patch Check Q Shift) 1 note N/A 0900,2100 [facility] Last Admin: 07/06/17 16:59 Dose: Not Given Ropinirole HCl (Requip Tab*) 0.5 mg PO BEDTIME [facility] Last Admin: 07/05/17 20:49 Dose: 0.5 mg Vital Signs - 8 hr 07/06/17 07/06/17 07/06/17 10:40 12:37 12:53 Temperature 98.4 F 98.8 F Pulse Rate 62 60 Respiratory 16 14 14 Rate Blood Pressure 182/67 144/60 (mmHg) O2 Sat by Pulse 97 96 Oximetry 07/06/17 07/06/17 07/06/17 13:08 13:10 13:22 Temperature 98.4 F 97.8 F 97.7 F Pulse Rate 63 57 57 Respiratory 18 14 14 Rate Blood Pressure 159/55 148/60 154/61 (mmHg) O2 Sat by Pulse 99 98 Oximetry 07/06/17 07/06/17 07/06/17 14:01 14:05 16:05 Temperature Pulse Rate Respiratory 14 14 14 Rate Blood Pressure (mmHg) O2 Sat by Pulse Oximetry 07/06/17 07/06/17 07/06/17 16:08 16:49 18:16 Temperature 98.2 F Pulse Rate 66 Respiratory 18 15 16 Rate Blood Pressure 135/48 (mmHg) O2 Sat by Pulse 94 Oximetry 07/06/17 18:17 Temperature Pulse Rate Respiratory 16 Rate Blood Pressure (mmHg) O2 Sat by Pulse Oximetry Oxygen Devices in Use Now: None Appearance: appears comfotable lying in bed. Eyes: No Scleral Icterus Ears/Nose/Mouth/Throat: Clear Oropharnyx, Mucous Membranes Moist Neck: NL Appearance and Movements; NL JVP, Trachea Midline Respiratory: Symmetrical Chest Expansion and Respiratory Effort, Clear to Auscultation Cardiovascular: NL Sounds; No Murmurs; No JVD, RRR, No Edema Abdominal: NL Sounds; No Tenderness; No Distention Extremities: No Edema, No Clubbing, Cyanosis Skin: No Rash or Ulcers Neurological: Alert and Oriented x 3, NL Sensation, NL Muscle Strength and Tone , - - difficulty raising left leg. Nutrition: Taking PO's Result Diagrams: 07/06/17 06:09 07/06/17 06:09 Additional Lab and Data: Lab Results 07/04/17 07/04/17 07/04/17 Range/Units 13:11 13:11 13:11 WBC 7.7 (3.5-10.8) 10^3/ul RBC 3.87 L (4.0-5.4) 10^6/ul Hgb 11.6 L (14.0-18.0) g/dl Hct 35 L (42-52) % MCV 89 (80-94) fL MCH 30 (27-31) pg MCHC 34 (31-36) g/dl RDW 14 (10.5-15) % Plt Count 162 (150-450) 10^3/ul MPV 10 (7.4-10.4) um3 Neut % (Auto) 68.9 (38-83) % Lymph % (Auto) 24.0 L (25-47) % [place] % (Auto) 5.4 (1-9) % Eos % (Auto) 1.0 (0-6) % Baso % (Auto) 0.7 (0-2) % Absolute Neuts (auto) 5.3 (1.5-7.7) 10^3/ul Absolute Lymphs (auto) 1.8 (1.0-4.8) 10^3/ul Absolute Monos (auto) 0.4 (0-0.8) 10^3/ul Absolute Eos (auto) 0.1 (0-0.6) 10^3/ul Absolute Basos (auto) 0.1 (0-0.2) 10^3/ul Absolute Nucleated RBC 0 10^3/ul Nucleated RBC % 0 INR (Anticoag Therapy) 0.85 (0.77-1.02) APTT 29.9 (26.0-36.3) seconds Sodium 135 (133-145) mmol/L Potassium 4.8 (3.5-5.0) mmol/L Chloride 105 (101-111) mmol/L Carbon Dioxide 25 (22-32) mmol/L Anion Gap 5 (2-11) mmol/L BUN 35 H (6-24) mg/dL Creatinine 1.82 H (0.67-1.17) mg/dL Est GFR ( Amer) 47.1 (>60) Est GFR (Non-Af Amer) 36.6 (>60) BUN/Creatinine Ratio 19.2 (8-20) Glucose 167 H (70-100) mg/dL POC Glucose (mg/dL) (70-100) mg/dL Lactic Acid (0.5-2.0) mmol/L Calcium 9.0 (8.6-10.3) mg/dL Total Bilirubin 0.40 (0.2-1.0) mg/dL AST 19 (13-39) U/L ALT 14 (7-52) U/L Alkaline Phosphatase 46 (34-104) U/L Total Protein 6.8 (6.4-8.9) g/dL Albumin 4.1 (3.2-5.2) g/dL Globulin 2.7 (2-4) g/dL Albumin/Globulin Ratio 1.5 (1-3) Urine Color Urine Appearance Urine pH (5-9) Ur Specific [place] (1.010-1.030) Urine Protein (Negative) Urine Ketones (Negative) Urine Blood (Negative) Urine Nitrate (Negative) Urine Bilirubin (Negative) Urine Urobilinogen (Negative) Ur Leukocyte Esterase (Negative) Urine Glucose (Negative) 07/04/17 07/04/17 07/04/17 Range/Units 13:11 16:22 16:33 WBC (3.5-10.8) 10^3/ul RBC (4.0-5.4) 10^6/ul Hgb (14.0-18.0) g/dl Hct (42-52) % MCV (80-94) fL MCH (27-31) pg MCHC (31-36) g/dl RDW (10.5-15) % Plt Count (150-450) 10^3/ul MPV (7.4-10.4) um3 Neut % (Auto) (38-83) % Lymph % (Auto) (25-47) % [place] % (Auto) (1-9) % Eos % (Auto) (0-6) % Baso % (Auto) (0-2) % Absolute Neuts (auto) (1.5-7.7) 10^3/ul Absolute Lymphs (auto) (1.0-4.8) 10^3/ul Absolute Monos (auto) (0-0.8) 10^3/ul Absolute Eos (auto) (0-0.6) 10^3/ul Absolute Basos (auto) (0-0.2) 10^3/ul Absolute Nucleated RBC 10^3/ul Nucleated RBC % INR (Anticoag Therapy) (0.77-1.02) APTT (26.0-36.3) seconds Sodium (133-145) mmol/L Potassium (3.5-5.0) mmol/L Chloride (101-111) mmol/L Carbon Dioxide (22-32) mmol/L Anion Gap (2-11) mmol/L BUN (6-24) mg/dL Creatinine (0.67-1.17) mg/dL Est GFR ( Amer) (>60) Est GFR (Non-Af Amer) (>60) BUN/Creatinine Ratio (8-20) Glucose (70-100) mg/dL POC Glucose (mg/dL) 109 H (70-100) mg/dL Lactic Acid 0.7 (0.5-2.0) mmol/L Calcium (8.6-10.3) mg/dL Total Bilirubin (0.2-1.0) mg/dL AST (13-39) U/L ALT (7-52) U/L Alkaline Phosphatase (34-104) U/L Total Protein (6.4-8.9) g/dL Albumin (3.2-5.2) g/dL Globulin (2-4) g/dL Albumin/Globulin Ratio (1-3) Urine Color Straw Urine Appearance Clear Urine pH 5.0 (5-9) Ur Specific [place] 1.009 L (1.010-1.030) Urine Protein Negative (Negative) Urine Ketones Negative (Negative) Urine Blood Negative (Negative) Urine Nitrate Negative (Negative) Urine Bilirubin Negative (Negative) Urine Urobilinogen Negative (Negative) Ur Leukocyte Esterase Negative (Negative) Urine Glucose Negative (Negative) Assess/Plan/Problems-Billing Assessment: Mr. Harris 76 y.o male that presented to the emergency room for low back pain for found to have severe spinal stenosis. He carries a history of DM, CAD, htn. He currently uses an insulin pump for diabetic control. He was seen and evaluated by Neurosurgery and will need a decompression lumbar surgery tomorrow. - Patient Problems (1) Back pain Current Visit: Yes Status: Acute Code(s): M54.9 - DORSALGIA, UNSPECIFIED SNOMED Code(s): 962408096 Comment: suspect this is related to: will continue pain medications and muscle relaxers Had CT myelogram complete today neurosurgery - pending OR tomorrow Will make NPO after midnight (2) CAD (coronary artery disease) Current Visit: Yes Status: Acute Code(s): I25.10 - ATHSCL HEART DISEASE OF [place] CORONARY ARTERY W/O ANG PCTRS SNOMED Code(s): 92600198 Comment: stable Denies chest pain with ambulation or exertion. good excercise tolerance; able to climb stair and shovel snow/ ice without chest pain or severe shortness of breath CAD is currently medically optimized with medical treatment seen by cardiology in 01/2017 was cardiac stable at that time. Will need to continue betablocker pre-op Last echo last nuclear stress test was in 2011, he does have a significant risk factors for surgery. revised cardiac risk index for pre-op risk is 11%- this was reviewed with the patient and he is aware of the cardiac risk during surgery. He is currently medically optimized and a acceptable candidate for surgery (3) CKD (chronic kidney disease) Current Visit: Yes Status: Acute Code(s): N18.9 - CHRONIC KIDNEY DISEASE, UNSPECIFIED SNOMED Code(s): 737689217 Comment: will continue to monitor BMP will start IV hydration after midnight while the patient is NPO (4) Diabetes mellitus Current Visit: Yes Status: Acute Code(s): E11.9 - TYPE 2 DIABETES MELLITUS WITHOUT COMPLICATIONS SNOMED Code(s): 12472959 Comment: will stop insulin pump and start sliding scale dosing accuchecks Q AC and HS Status and Disposition: inpatient: surgery pending
[2017-07-06] MEDS: Atorvastatin* 20 MG TAB PO SCH (21:06)
[2017-07-06] MEDS: Omeprazole CAP* 20 MG PO SCH (21:06)
[2017-07-06] MEDS: Ropinirole TAB* 0.5 MG TAB PO SCH (21:06)
[2017-07-06] MEDS ORDERED: NS 0.9% 1000 ML* 1,000 ML IV SCH (23:30)
[2017-07-07] MEDS: fentaNYL* 50 MCG/ML 2 ML VIAL (100 MCG VIAL) IV SLOW PU PRN ×3 (00:08→08:33)
[2017-07-07] MEDS: Heparin VIAL(*) 5000 UNITS/ML VIAL (FIVE THOUSAND) SUBCUT SCH ×2 (04:39→17:31)
[2017-07-07] MEDS ORDERED: Famotidine IV* 10 MG/ML 2 ML (20 mg) IV ONE (08:00)
[2017-07-07] MEDS: Insulin LISPRO* 1 UNITS UNIT SUBCUT SCH ×4 (08:32→20:35)
[2017-07-07] MEDS: hydrALAZINE TAB* 25 MG PO SCH ×3 (08:34→20:34)
[2017-07-07] MEDS: Carvedilol TAB* 25 MG PO SCH ×2 (08:34→20:34)
[2017-07-07] MEDS: Citalopram TAB* 20 MG PO SCH (08:34)
[2017-07-07] MEDS: Gabapentin CAP(*) 300 MG PO SCH (08:34)
[2017-07-07] MEDS: Aspirin EC Low Dose* 81 MG TAB.EC PO SCH (08:36)
[2017-07-07 08:40] LABS: ABS Basophils 0 10^3/ul (0-0.2); ABS Eosinophils 0.1 10^3/ul (0-0.6); ABS Lymphocytes 2.6 10^3/ul (1.0-4.8); ABS Monocytes 0.5 10^3/ul (0-0.8); ABS Neutrophils 3.2 10^3/ul (1.5-7.7); ABS Nucleated RBC 0 10^3/ul; Eosinophil % 1.9 % (0-6); Hematocrit 36 % (42-52); Hemoglobin 11.7 g/dl (14.0-18.0); Lymphocyte % 40.2 % (25-47); Mean Corpuscular HGB Conc 33 g/dl (31-36); Mean Corpuscular Hemoglobin 29 pg (27-31); Mean Corpuscular Volume 89 fL (80-94); Mean Platelet Volume 9 um3 (7.4-10.4); Nucleated Red Blood Cells % 0; Platelet Count 141 10^3/ul (150-450); Red Blood Count 3.99 10^6/ul (4.0-5.4); Red Cell Distribution Width 14 % (10.5-15); White Blood Count 6.4 10^3/ul (3.5-10.8)
[2017-07-07] MEDS: FENOFIBRATE 160 MG PO SCH (08:44)
[2017-07-07] MEDS: FOLIC ACID 800 MCG PO SCH (08:44)
[2017-07-07] MEDS: fentaNYL Patch Check Q Shift 1 NOTE SCH ×3 (08:45→19:09)
[2017-07-07 08:54] LABS: EGFR Non-African American 38.3 (>60)
--- NOTE | 2017-07-07 10:21 | PN ---
Progress Note - Progress Note Date of Service: 07/07/17 SOAP: Subjective: []Continues to have severe pain in left leg Discussed findings on myelo yesterday Objective: []SLR positive on left at 10 degrees Crossed SLR positive Assessment: [] CT/Myelo shows block at L3-4 Plan: []Lumbar Decompressive Laminectomy at L3-4 planned for today Proposed procedure explained in detail.
[2017-07-07] MEDS ORDERED: Lidocaine 1% MPF wEPI 200,000* 30 ML SDV ONE (11:17)
[2017-07-07] MEDS ORDERED: Thrombin 5,000 UNITS* 1 APPLIC KIT - topical use - TOPICAL ONE (11:18)
[2017-07-07] MEDS ORDERED: Bacitracin IV* 50,000 UNITS INJ ONE (11:19)
[2017-07-07] MEDS ORDERED: Buffered Lidocaine 0.9% SYRIN* 5 ML/SYR SYRINGE INTRADERM ONE (11:24)
[2017-07-07] MEDS ORDERED: PROCHLORPERAZINE INJ 5 MG/ML 2 ML VIAL IV PRN (11:26)
[2017-07-07] MEDS ORDERED: Naloxone* 0.4 MG/ML 1 ML VIAL IV PRN (11:26)
[2017-07-07] MEDS ORDERED: DiMENhydriNATE IV* 50 MG/ML VIAL IV PUSH PRN (11:26)
[2017-07-07] MEDS ORDERED: fentaNYL* 50 MCG/ML 2 ML VIAL (100 MCG VIAL) IV PRN (11:26)
[2017-07-07] MEDS ORDERED: Ondansetron INJ* 2 MG/ML VIAL IV PRN ×2 (11:26→13:32)
[2017-07-07] MEDS ORDERED: HYDROmorphone INJ* 1 MG/ML CARPUJECT SYRINGE IV PRN (11:26)
[2017-07-07] MEDS ORDERED: Midazolam* 1 MG/ML 2 ML VIAL (2 MG) ONE (11:42)
[2017-07-07] MEDS ORDERED: KETAMINE HCL* 50 MG/ML 10 ML VIAL ONE (11:42)
[2017-07-07] MEDS ORDERED: fentaNYL* 50 MCG/ML 5 ML VIAL (250 MCG VIAL) ONE (11:42)
[2017-07-07] MEDS ORDERED: Atracurium* 10 MG/ML 10 ML VIAL ONE (11:43)
[2017-07-07] MEDS ORDERED: Clindamycin 900 MG IVPREMIX(* 900 MG/50 ML SDV IV ONE (12:03)
[2017-07-07] MEDS ORDERED: Neostigmine Methylsulfate* 2 MG/2 ML SYRINGE ONE (13:41)
[2017-07-07] MEDS ORDERED: Ondansetron INJ* 2 MG/ML VIAL ONE (13:41)
[2017-07-07] MEDS ORDERED: Phenylephrine INJ* 10 MG/ML 1 ML VIAL (10 MG) ONE (13:41)
[2017-07-07] MEDS ORDERED: Lidocaine 2% PF * 5 ML VIAL ONE (13:41)
[2017-07-07] MEDS ORDERED: Glycopyrrolate IV* 0.2 MG/ML 1 ML VIAL ONE (13:41)
[2017-07-07] MEDS ORDERED: Propofol* 10 MG/ML 20 ML BTL IV PUSH ONE (13:41)
[2017-07-07] MEDS ORDERED: EPHEDrine (Pressors)* 50 MG/ML VIAL ONE (13:41)
[2017-07-07] MEDS ORDERED: Metoprolol Tartrate IV* 1 MG/ML 5 ML VIAL ONE (13:47)
[2017-07-07] MEDS ORDERED: fentaNYL* 50 MCG/ML 2 ML VIAL (100 MCG VIAL) ONE (14:23)
[2017-07-07] MEDS: oxyCODONE TAB* 5 MG TAB PO PRN ×2 (17:36→22:50)
--- NOTE | 2017-07-07 17:59 | RAD ---
INDICATION: L3/L4 laminectomy TECHNIQUE: A single crosstable lateral image was acquired. FINDINGS: Intraoperative imaging depicts a surgical instrument at the level of the L3/L4 intervertebral disc space. Surgical retractor is noted in the [id number]. IMPRESSION: As above
--- NOTE | 2017-07-07 18:48 | PN ---
Subjective Date of Service: 07/07/17 Interval History: continues to c/o lower back pain, worse with movement. Denies chest pain, shortness of breath or abd pain. Denies N/V/D. Family History: Unchanged from Admission Social History: Unchanged from Admission Past Medical History: Unchanged from Admission Objective Active Medications: Acetaminophen (Tylenol Tab*) 650 mg PO Q4H PRN PRN Reason: PAIN Aspirin (Aspirin Ec Low Dose*) 81 mg PO DAILY [facility] Last Admin: 07/07/17 08:36 Dose: Not Given Atorvastatin Calcium (Lipitor*) 20 mg PO BEDTIME [facility] Last Admin: 07/06/17 21:06 Dose: 20 mg Carvedilol (Coreg Tab*) 25 mg PO BID [facility] Last Admin: 07/07/17 08:34 Dose: 25 mg Citalopram Hydrobromide (Celexa Tab*) 20 mg PO DAILY [facility] Last Admin: 07/07/17 08:34 Dose: 20 mg Cyclobenzaprine HCl (Flexeril Tab*) 10 mg PO TID PRN PRN Reason: SPASMS Last Admin: 07/06/17 21:06 Dose: 10 mg Dextrose (D50w Syringe 50 Ml*) 12.5 gm IV PUSH .FOR FS < 60 - SS PRN PRN Reason: FS < 60 Dimenhydrinate (Dramamine Iv*) 12.5 mg IV PUSH ONCE PRN PRN Reason: NAUSEA/VOMITING Fenofibrate (Tricor(Nf)) 160 mg PO DAILY [facility] PRN Reason: Protocol Last Admin: 07/07/17 08:44 Dose: 160 mg Fentanyl (Duragesic Patch 50 Mcg/Hr*) 50 mcg TRANSDERM Q72H [facility] Last Admin: 07/04/17 23:52 Dose: 50 mcg Fentanyl Citrate (Fentanyl*) 50 mcg IV SLOW PU Q3H PRN PRN Reason: PAIN Last Admin: 07/07/17 08:33 Dose: 50 mcg Gabapentin (Neurontin Cap(*)) 600 mg PO DAILY [facility] Last Admin: 07/07/17 08:34 Dose: 600 mg Hydralazine HCl (Apresoline Tab*) 25 mg PO TID [facility] Last Admin: 07/07/17 16:37 Dose: 25 mg Sodium Chloride (Ns 0.9% 1000 Ml*) 1,000 mls @ 75 mls/hr IV PER RATE [facility] Last Admin: 07/06/17 23:07 Dose: 75 mls/hr Lactated Ringer's (Lactated Ringers 1000 Ml Bag*) 1,000 mls @ 75 mls/hr IV .per rate [facility] Last Admin: 07/07/17 16:38 Dose: 75 mls/hr Insulin Human Lispro (Humalog*) 0 units SUBCUT ACHS [facility] PRN Reason: Protocol Last Admin: 07/07/17 17:37 Dose: 3 units Pto: Folic Acid 800 (Mcg Tablet Otc) 0 mcg PO DAILY [facility] Last Admin: 07/07/17 08:44 Dose: 400 mcg Omeprazole (Prilosec Cap*) 20 mg PO BEDTIME [facility] Last Admin: 07/06/17 21:06 Dose: 20 mg Ondansetron HCl (Zofran Inj*) 4 mg IV Q6H PRN PRN Reason: NAUSEA/VOMITING Oxycodone HCl (Roxycodone Tab*) 5 mg PO Q4H PRN PRN Reason: pain 1-5 Last Admin: 07/05/17 07:46 Dose: 5 mg Oxycodone HCl (Roxycodone Tab*) 10 mg PO Q4H PRN PRN Reason: pain 6-10 Last Admin: 07/07/17 17:36 Dose: 10 mg Pharmacy Profile Note (Fentanyl Patch Check Q Shift) 1 note N/A 0900,2100 [facility] Last Admin: 07/07/17 16:27 Dose: 1 note Ropinirole HCl (Requip Tab*) 0.5 mg PO BEDTIME [facility] Last Admin: 07/06/17 21:06 Dose: 0.5 mg Vital Signs - 8 hr 07/07/17 07/07/17 07/07/17 14:00 14:05 14:10 Temperature 97.7 F Pulse Rate 64 69 Respiratory 18 12 12 Rate Blood Pressure 163/80 173/67 173/67 (mmHg) O2 Sat by Pulse 100 100 95 Oximetry 07/07/17 07/07/17 07/07/17 14:30 14:43 14:45 Temperature 97.7 F Pulse Rate 64 62 Respiratory 20 16 16 Rate Blood Pressure 160/69 150/98 (mmHg) O2 Sat by Pulse 99 99 Oximetry 07/07/17 07/07/17 07/07/17 15:00 15:15 15:30 Temperature Pulse Rate 63 61 61 Respiratory 18 16 16 Rate Blood Pressure 142/70 134/60 129/59 (mmHg) O2 Sat by Pulse 94 94 97 Oximetry 07/07/17 07/07/17 07/07/17 16:00 16:02 16:24 Temperature 97.6 F Pulse Rate 62 61 Respiratory 16 16 16 Rate Blood Pressure 145/69 144/62 (mmHg) O2 Sat by Pulse 97 97 Oximetry 07/07/17 07/07/17 07/07/17 16:29 17:24 17:27 Temperature 96.9 F Pulse Rate 66 Respiratory 16 18 Rate Blood Pressure 123/38 122/58 (mmHg) O2 Sat by Pulse 95 Oximetry 07/07/17 07/07/17 17:36 17:48 Temperature Pulse Rate Respiratory 18 Rate Blood Pressure (mmHg) O2 Sat by Pulse 95 Oximetry Oxygen Devices in Use Now: None Appearance: awake, alert, appears to be in mild discomfort resting in the bed Eyes: No Scleral Icterus Ears/Nose/Mouth/Throat: Clear Oropharnyx, Mucous Membranes Moist Neck: NL Appearance and Movements; NL JVP, Trachea Midline Respiratory: Symmetrical Chest Expansion and Respiratory Effort, Clear to Auscultation Cardiovascular: NL Sounds; No Murmurs; No JVD, RRR, No Edema Abdominal: NL Sounds; No Tenderness; No Distention Extremities: No Edema, No Clubbing, Cyanosis Skin: No Rash or Ulcers Neurological: Alert and Oriented x 3, - - c/o lower back pain radiating to left knee with minimal movement of legs Result Diagrams: 07/07/17 08:31 07/07/17 08:31 Additional Lab and Data: Lab Results 07/04/17 07/04/17 07/04/17 Range/Units 13:11 13:11 13:11 WBC 7.7 (3.5-10.8) 10^3/ul RBC 3.87 L (4.0-5.4) 10^6/ul Hgb 11.6 L (14.0-18.0) g/dl Hct 35 L (42-52) % MCV 89 (80-94) fL MCH 30 (27-31) pg MCHC 34 (31-36) g/dl RDW 14 (10.5-15) % Plt Count 162 (150-450) 10^3/ul MPV 10 (7.4-10.4) um3 Neut % (Auto) 68.9 (38-83) % Lymph % (Auto) 24.0 L (25-47) % [place] % (Auto) 5.4 (1-9) % Eos % (Auto) 1.0 (0-6) % Baso % (Auto) 0.7 (0-2) % Absolute Neuts (auto) 5.3 (1.5-7.7) 10^3/ul Absolute Lymphs (auto) 1.8 (1.0-4.8) 10^3/ul Absolute Monos (auto) 0.4 (0-0.8) 10^3/ul Absolute Eos (auto) 0.1 (0-0.6) 10^3/ul Absolute Basos (auto) 0.1 (0-0.2) 10^3/ul Absolute Nucleated RBC 0 10^3/ul Nucleated RBC % 0 INR (Anticoag Therapy) 0.85 (0.77-1.02) APTT 29.9 (26.0-36.3) seconds Sodium 135 (133-145) mmol/L Potassium 4.8 (3.5-5.0) mmol/L Chloride 105 (101-111) mmol/L Carbon Dioxide 25 (22-32) mmol/L Anion Gap 5 (2-11) mmol/L BUN 35 H (6-24) mg/dL Creatinine 1.82 H (0.67-1.17) mg/dL Est GFR ( Amer) 47.1 (>60) Est GFR (Non-Af Amer) 36.6 (>60) BUN/Creatinine Ratio 19.2 (8-20) Glucose 167 H (70-100) mg/dL POC Glucose (mg/dL) (70-100) mg/dL Lactic Acid (0.5-2.0) mmol/L Calcium 9.0 (8.6-10.3) mg/dL Total Bilirubin 0.40 (0.2-1.0) mg/dL AST 19 (13-39) U/L ALT 14 (7-52) U/L Alkaline Phosphatase 46 (34-104) U/L Total Protein 6.8 (6.4-8.9) g/dL Albumin 4.1 (3.2-5.2) g/dL Globulin 2.7 (2-4) g/dL Albumin/Globulin Ratio 1.5 (1-3) Urine Color Urine Appearance Urine pH (5-9) Ur Specific [place] (1.010-1.030) Urine Protein (Negative) Urine Ketones (Negative) Urine Blood (Negative) Urine Nitrate (Negative) Urine Bilirubin (Negative) Urine Urobilinogen (Negative) Ur Leukocyte Esterase (Negative) Urine Glucose (Negative) 07/04/17 07/04/17 07/04/17 Range/Units 13:11 16:22 16:33 WBC (3.5-10.8) 10^3/ul RBC (4.0-5.4) 10^6/ul Hgb (14.0-18.0) g/dl Hct (42-52) % MCV (80-94) fL MCH (27-31) pg MCHC (31-36) g/dl RDW (10.5-15) % Plt Count (150-450) 10^3/ul MPV (7.4-10.4) um3 Neut % (Auto) (38-83) % Lymph % (Auto) (25-47) % [place] % (Auto) (1-9) % Eos % (Auto) (0-6) % Baso % (Auto) (0-2) % Absolute Neuts (auto) (1.5-7.7) 10^3/ul Absolute Lymphs (auto) (1.0-4.8) 10^3/ul Absolute Monos (auto) (0-0.8) 10^3/ul Absolute Eos (auto) (0-0.6) 10^3/ul Absolute Basos (auto) (0-0.2) 10^3/ul Absolute Nucleated RBC 10^3/ul Nucleated RBC % INR (Anticoag Therapy) (0.77-1.02) APTT (26.0-36.3) seconds Sodium (133-145) mmol/L Potassium (3.5-5.0) mmol/L Chloride (101-111) mmol/L Carbon Dioxide (22-32) mmol/L Anion Gap (2-11) mmol/L BUN (6-24) mg/dL Creatinine (0.67-1.17) mg/dL Est GFR ( Amer) (>60) Est GFR (Non-Af Amer) (>60) BUN/Creatinine Ratio (8-20) Glucose (70-100) mg/dL POC Glucose (mg/dL) 109 H (70-100) mg/dL Lactic Acid 0.7 (0.5-2.0) mmol/L Calcium (8.6-10.3) mg/dL Total Bilirubin (0.2-1.0) mg/dL AST (13-39) U/L ALT (7-52) U/L Alkaline Phosphatase (34-104) U/L Total Protein (6.4-8.9) g/dL Albumin (3.2-5.2) g/dL Globulin (2-4) g/dL Albumin/Globulin Ratio (1-3) Urine Color Straw Urine Appearance Clear Urine pH 5.0 (5-9) Ur Specific [place] 1.009 L (1.010-1.030) Urine Protein Negative (Negative) Urine Ketones Negative (Negative) Urine Blood Negative (Negative) Urine Nitrate Negative (Negative) Urine Bilirubin Negative (Negative) Urine Urobilinogen Negative (Negative) Ur Leukocyte Esterase Negative (Negative) Urine Glucose Negative (Negative) Assess/Plan/Problems-Billing Assessment: Mr. Harris 76 y.o male that presented to the emergency room for low back pain for found to have severe spinal stenosis. He carries a history of DM, CAD, htn. He currently uses an insulin pump for diabetic control. He was seen and evaluated by Neurosurgery and will have lumbar decompression surgery today. - Patient Problems (1) Back pain Current Visit: Yes Status: Acute Code(s): M54.9 - DORSALGIA, UNSPECIFIED SNOMED Code(s): 702862018 Comment: suspect this is related to: will continue pain medications and muscle relaxers Had CT myelogram complete today neurosurgery - pending OR today resume diet post op (2) CAD (coronary artery disease) Current Visit: Yes Status: Acute Code(s): I25.10 - ATHSCL HEART DISEASE OF [place] CORONARY ARTERY W/O ANG PCTRS SNOMED Code(s): 52994194 Comment: stable Denies chest pain with ambulation or exertion. good excercise tolerance; able to climb stair and shovel snow/ ice without chest pain or severe shortness of breath CAD is currently medically optimized with medical treatment seen by cardiology in 01/2017 was cardiac stable at that time. Will need to continue betablocker pre-op Last echo last nuclear stress test was in 2011, he does have a significant risk factors for surgery. revised cardiac risk index for pre-op risk is 11%- this was reviewed with the patient and he is aware of the cardiac risk during surgery. He is currently medically optimized and a acceptable candidate for surgery (3) CKD (chronic kidney disease) Current Visit: Yes Status: Acute Code(s): N18.9 - CHRONIC KIDNEY DISEASE, UNSPECIFIED SNOMED Code(s): 942589751 Comment: will continue to monitor BMP (4) Diabetes mellitus Current Visit: Yes Status: Acute Code(s): E11.9 - TYPE 2 DIABETES MELLITUS WITHOUT COMPLICATIONS SNOMED Code(s): 33597638 Comment: will stop insulin pump and start sliding scale dosing accuchecks Q AC and HS Status and Disposition: inpatient: surgery completed today
[2017-07-07] MEDS: Ropinirole TAB* 0.5 MG TAB PO SCH (20:33)
[2017-07-07] MEDS: Cyclobenzaprine TAB* 10 MG PO PRN (20:33)
[2017-07-07] MEDS: Atorvastatin* 20 MG TAB PO SCH (20:34)
[2017-07-07] MEDS: Omeprazole CAP* 20 MG PO SCH (20:34)
[2017-07-07] MEDS: fentaNYL PATCH 50 MCG/HR TRANSDERM SCH (23:59)
[2017-07-08] MEDS: fentaNYL* 50 MCG/ML 2 ML VIAL (100 MCG VIAL) IV SLOW PU PRN ×2 (00:17→06:01)
[2017-07-08] MEDS: oxyCODONE TAB* 5 MG TAB PO PRN ×4 (04:01→17:59)
[2017-07-08 05:09] LABS: ABS Basophils 0.1 10^3/ul (0-0.2); ABS Eosinophils 0.1 10^3/ul (0-0.6); ABS Lymphocytes 2.4 10^3/ul (1.0-4.8); ABS Monocytes 0.8 10^3/ul (0-0.8); ABS Neutrophils 6.9 10^3/ul (1.5-7.7); ABS Nucleated RBC 0 10^3/ul; Eosinophil % 1.1 % (0-6); Hematocrit 33 % (42-52); Hemoglobin 10.8 g/dl (14.0-18.0); Lymphocyte % 23.4 % (25-47); Mean Corpuscular HGB Conc 33 g/dl (31-36); Mean Corpuscular Hemoglobin 30 pg (27-31); Mean Corpuscular Volume 89 fL (80-94); Mean Platelet Volume 10 um3 (7.4-10.4); Nucleated Red Blood Cells % 0; Platelet Count 140 10^3/ul (150-450); Red Blood Count 3.65 10^6/ul (4.0-5.4); Red Cell Distribution Width 14 % (10.5-15); White Blood Count 10.2 10^3/ul (3.5-10.8)
[2017-07-08 05:22] LABS: EGFR Non-African American 33.6 (>60)
[2017-07-08] MEDS: fentaNYL Patch Check Q Shift 1 NOTE SCH ×2 (06:41→18:46)
[2017-07-08] MEDS: Cyclobenzaprine TAB* 10 MG PO PRN ×2 (07:52→20:54)
[2017-07-08] MEDS: Insulin LISPRO* 1 UNITS UNIT SUBCUT SCH ×4 (09:05→20:55)
[2017-07-08] MEDS: FENOFIBRATE 160 MG PO SCH (09:06)
[2017-07-08] MEDS: FOLIC ACID 800 MCG PO SCH (09:07)
[2017-07-08] MEDS: Gabapentin CAP(*) 300 MG PO SCH (09:08)
[2017-07-08] MEDS: Carvedilol TAB* 25 MG PO SCH ×2 (09:08→20:54)
[2017-07-08] MEDS: hydrALAZINE TAB* 25 MG PO SCH ×3 (09:08→20:54)
[2017-07-08] MEDS: Aspirin EC Low Dose* 81 MG TAB.EC PO SCH (09:08)
[2017-07-08] MEDS: Citalopram TAB* 20 MG PO SCH (09:08)
--- NOTE | 2017-07-08 11:02 | PN ---
Progress Note - Progress Note Date of Service: 07/08/17 SOAP: Subjective: [S/p decompressive lumbar laminectomy L3-4, POD #1. Patient states he did not have a restful night and experienced significant LLE pain. Required IV pain medications overnight, PO today. Was able to get up out of bed this morning and ambulate with assistance of walker. Denies headache and nausea. Eating and drinking well. ] Objective: [ Vital Signs: Temp Pulse Resp BP Pulse Ox 97.7 F 65 20 155/70 95 07/08/17 07:24 07/08/17 07:24 07/08/17 10:22 07/08/17 07:24 07/08/17 08:00 General: Alert and in no acute pain Neuro: Motor and sensory intact. Incision: Intact with annemarie. Wound drain functioning well. Extremities: Full ROM. Wound drain output 07/07/17 07/07/17 07/07/17 16:00 18:00 22:00 Output, WILBER #1 40 40 30 07/08/17 07/08/17 07/08/17 01:54 05:42 09:34 Output, WILBER #1 35 20 20 ] Assessment: [This patient is s/p decompressive lumbar laminectomy L3-4, POD#1. LLE pain persistent although improving. Wound drain continues to collect significant volume of fluid, will remain in place and requires further monitoring. ] Plan: [1. Continue pain management; IV only when pain not relieved with PO. 2. Resume PT today, assist with ambulation. 3. Patient will remain admitted today for continued pain management and monitoring of wound drain output. 4. Encourage up out of bed. ]
[2017-07-08] MEDS: Acetaminophen TAB* 325 MG PO PRN ×2 (12:59→17:58)
--- NOTE | 2017-07-08 14:00 | PN ---
Subjective Date of Service: 07/08/17 Interval History: Patient seen and examined at bedside. Denies fever, chills, shortness of breath , chest discomfort, N/V/D. Pt states that he continues to have incisional pain with pain that radiates down his left leg. Family History: Unchanged from Admission Social History: Unchanged from Admission Past Medical History: Unchanged from Admission Objective Active Medications: Acetaminophen (Tylenol Tab*) 650 mg PO Q4H PRN Reason: PAIN Aspirin (Aspirin Ec Low Dose*) 81 mg PO DAILY [facility] Atorvastatin Calcium (Lipitor*) 20 mg PO BEDTIME [facility] Carvedilol (Coreg Tab*) 25 mg PO BID [facility] Citalopram Hydrobromide (Celexa Tab*) 20 mg PO DAILY [facility] Cyclobenzaprine HCl (Flexeril Tab*) 10 mg PO TID PRN Reason: SPASMS Dextrose (D50w Syringe 50 Ml*) 12.5 gm IV PUSH .FOR FS < 60 - SS PRN Reason: FS < 60 Dimenhydrinate (Dramamine Iv*) 12.5 mg IV PUSH ONCE PRN Reason: NAUSEA/VOMITING Fenofibrate (Tricor(Nf)) 160 mg PO DAILY [facility] Fentanyl (Duragesic Patch 50 Mcg/Hr*) 50 mcg TRANSDERM Q72H [facility] Fentanyl Citrate (Fentanyl*) 50 mcg IV SLOW PU Q3H PRN Reason: PAIN Gabapentin (Neurontin Cap(*)) 600 mg PO DAILY [facility] Hydralazine HCl (Apresoline Tab*) 25 mg PO TID [facility] Sodium Chloride (Ns 0.9% 1000 Ml*) 1,000 mls @ 75 mls/hr IV PER RATE [facility] Lactated Ringer's (Lactated Ringers 1000 Ml Bag*) 1,000 mls @ 75 mls/hr IV .per rate [facility] Insulin Human Lispro (Humalog*) 0 units SUBCUT ACHS [facility]ARA Pto: Folic Acid 800 (Mcg Tablet Otc) 0 mcg PO DAILY [facility] Omeprazole (Prilosec Cap*) 20 mg PO BEDTIME [facility] Ondansetron HCl (Zofran Inj*) 4 mg IV Q6H PRN Reason: NAUSEA/VOMITING Oxycodone HCl (Roxycodone Tab*) 5 mg PO Q4H PRN Reason: pain 1-5 Oxycodone HCl (Roxycodone Tab*) 10 mg PO Q4H PRN Reason: pain 6-10 Pharmacy Profile Note (Fentanyl Patch Check Q Shift) 1 note N/A 0700,1900 [facility] Ropinirole HCl (Requip Tab*) 0.5 mg PO BEDTIME [facility] Vital Signs - 8 hr 07/08/17 07/08/17 07/08/17 06:01 06:06 07:24 Temperature 97.7 F Pulse Rate 65 Respiratory 17 22 18 Rate Blood Pressure 155/70 (mmHg) O2 Sat by Pulse 95 Oximetry 07/08/17 07/08/17 07/08/17 07:39 07:52 08:00 Temperature Pulse Rate Respiratory 16 18 18 Rate Blood Pressure (mmHg) O2 Sat by Pulse 95 Oximetry 07/08/17 07/08/17 11:30 12:58 Temperature 98.2 F Pulse Rate 67 Respiratory 18 18 Rate Blood Pressure 159/47 (mmHg) O2 Sat by Pulse 93 Oximetry Oxygen Devices in Use Now: None, CPAP Appearance: NAD, sitting up in bed Ears/Nose/Mouth/Throat: Mucous Membranes Moist Respiratory: Symmetrical Chest Expansion and Respiratory Effort, Clear to Auscultation Cardiovascular: NL Sounds; No Murmurs; No JVD, RRR Abdominal: NL Sounds; No Tenderness; No Distention Extremities: No Edema Skin: No Rash or Ulcers Neurological: Alert and Oriented x 3, NL Muscle Strength and Tone Lines/Tubes/Other Access: Clean, Dry and Intact Peripheral IV - site benign Nutrition: Taking PO's Result Diagrams: 07/08/17 04:38 07/08/17 04:41 Additional Lab and Data: Assess/Plan/Problems-Billing Assessment: Mr. Harris 76 y.o male with PMH significant for DM, CAD, HTN, HLD, BHARATI, chronic back pain, CKD -3 and obesity who presented to the emergency room for low back pain and was found to have severe spinal stenosis. - Patient Problems (1) Spinal stenosis Code(s): M48.00 - SPINAL STENOSIS, SITE UNSPECIFIED SNOMED Code(s): 07885449 Comment: - S/P L3-4 decompressive lami, POD #1 - Management per neurosurgery - Continue pain management, OT/PT, bowel regimen (2) Back pain Code(s): M54.9 - DORSALGIA, UNSPECIFIED SNOMED Code(s): 248577692 Comment: - Acute on Chronic - Continue pain medications and muscle relaxers (3) Diabetes mellitus Code(s): E11.9 - TYPE 2 DIABETES MELLITUS WITHOUT COMPLICATIONS SNOMED Code(s) : 01145668 Comment: - Glucose 150-240's - Resume insulin pump (4) BHARATI (obstructive sleep apnea) Code(s): G47.33 - OBSTRUCTIVE SLEEP APNEA (ADULT) (PEDIATRIC) SNOMED Code(s): 14493107 Comment: - Continue CPAP (5) CAD (coronary artery disease) Code(s): I25.10 - ATHSCL HEART DISEASE OF [place] CORONARY ARTERY W/O ANG PCTRS SNOMED Code(s): 50772971 Comment: - Stable, denies chest pain - Continue carvedilol (6) CKD (chronic kidney disease) Code(s): N18.9 - CHRONIC KIDNEY DISEASE, UNSPECIFIED SNOMED Code(s): 555656127 Comment: - Stage 3, appears to be at baseline (7) DVT prophylaxis Code(s): IJO1108 - SNOMED Code(s): 095445541 Comment: - SCDs (8) Full code status Code(s): Z78.9 - OTHER SPECIFIED HEALTH STATUS SNOMED Code(s): 986901758 Status and Disposition: Inpatient. Plan for discharge when medically stable, suspect he will need short term rehab.
[2017-07-08] MEDS: INSULIN REGULAR 500 UNIT/ML SUBCUT SCH (15:50)
[2017-07-08] MEDS: Atorvastatin* 20 MG TAB PO SCH (20:54)
[2017-07-08] MEDS: Omeprazole CAP* 20 MG PO SCH (20:54)
[2017-07-08] MEDS: Ropinirole TAB* 0.5 MG TAB PO SCH (20:54)
[2017-07-09] MEDS: Acetaminophen TAB* 325 MG PO PRN ×4 (00:54→20:52)
[2017-07-09] MEDS: oxyCODONE TAB* 5 MG TAB PO PRN ×4 (00:55→20:49)
[2017-07-09] MEDS: fentaNYL Patch Check Q Shift 1 NOTE SCH ×2 (07:04→18:53)
--- NOTE | 2017-07-09 08:07 | PN ---
Progress Note - Progress Note Date of Service: 07/09/17 SOAP: Subjective: [S/p decompressive lumbar laminectomy L3-4, POD #2. Pre-operative LLE pain unchanged post-operatively. Continues to complain of severe, shooting LLE pain in the posterior thigh to the knee. No pain in distal left leg or foot. Denies numbness and tingling. Was seen by PT yesterday but patient states he was unable to participate secondary to pain. Ambulated in the [place] yesterday. Pain is worse with sitting, standing and walking; improved with laying flat.] Objective: [ Vital Signs: Temp Pulse Resp BP Pulse Ox 98.1 F 62 16 150/53 100 07/09/17 03:32 07/09/17 03:32 07/09/17 03:32 07/09/17 03:32 07/09/17 03:32 General: Alert and laying comfortably in bed. Neuro: Motor and sensory intact. Left SLR positive. Extremities: Pain with movement of LLE. Incision: Intact with annemarie. No swelling. ] Assessment: [S/p lumbar decompression L3-4 for severe lumbar stenosis, persistent pain. Patient is stable post-operatively. ] Plan: [1. Consult Dr. Lockwood for pain management; followed with Dr. Lockwood for trigger point injections prior to admission. 2. PT/OT 3. Encourage ambulation. 4. PMRU consult pending.]
[2017-07-09] MEDS: Aspirin EC Low Dose* 81 MG TAB.EC PO SCH (08:13)
[2017-07-09] MEDS: Citalopram TAB* 20 MG PO SCH (08:14)
[2017-07-09] MEDS: hydrALAZINE TAB* 25 MG PO SCH ×3 (08:14→20:49)
[2017-07-09] MEDS: Gabapentin CAP(*) 300 MG PO SCH ×2 (08:14→20:49)
[2017-07-09] MEDS: Carvedilol TAB* 25 MG PO SCH ×2 (08:14→20:49)
[2017-07-09] MEDS: FENOFIBRATE 160 MG PO SCH (08:15)
[2017-07-09] MEDS: FOLIC ACID 800 MCG PO SCH (08:50)
[2017-07-09] MEDS: fentaNYL* 50 MCG/ML 2 ML VIAL (100 MCG VIAL) IV SLOW PU PRN ×2 (10:29→16:49)
[2017-07-09] MEDS: Cyclobenzaprine TAB* 10 MG PO PRN (13:54)
--- NOTE | 2017-07-09 15:58 | CONSULT ---
Consult Consult: INPATIENT PAIN CONSULTATION Konstantin Harris is known to me. He is a 76 year old diabetic. He developed back pain in 2007, and underwent bilateral L4/5 and L5/S1 foraminotomies and a L4/5 laminectomy in April,, by Dr. Joseph. He has had ongoing pain since and has been on chronic opioids since. When I first met him in 2012, he was on a Fentanyl Patch, 125 mcg/hr as well as Neurontin 900 mg at HS, and Percocet. We have tapered him down over the years. He is currently on a Fentanyl Patch, 50 mcg/hr, as well as Neurontin, 600 mg at HS, and Percocet, 10/325, up to 4/ day. He developed severe pain in his right low back in early June. He saw me July 01, 2017, and we did a trigger point injection. This was some help. At 130 am on July 04, he had severe pain in his left leg. His could not get him to stand. He was brought to [facility] and admitted. He had a lumbar MRI on 07/04 showing severe spinal stenosis at L3/4. He had a CT myelogram on 07/06 showing severe bilateral neural foraminal narrowing at L3/4 and severe spinal stenosis with a incomplete block at L3/4. He went to operating room on Jul 07 and underwent a lumbar decompressive laminectomy at L3/4. Since before the surgery has sever pain down left leg while the leg is dependent or he tries to put weight on it. PAST MEDICAL HISTORY: Diabetes, Hypercholesterolemia, HTN ALLERGIES: PCN, Morphine SOCIAL HISTORY: Non smoker, non drinker. Current Medications Acetaminophen (Tylenol Tab*) 650 mg PO Q4H PRN PRN Reason: PAIN Last Admin: 07/09/17 13:57 Dose: 650 mg Aspirin (Aspirin Ec Low Dose*) 81 mg PO DAILY [facility] Last Admin: 07/09/17 08:13 Dose: 81 mg Atorvastatin Calcium (Lipitor*) 20 mg PO BEDTIME [facility] Last Admin: 07/08/17 20:54 Dose: 20 mg Carvedilol (Coreg Tab*) 25 mg PO BID [facility] Last Admin: 07/09/17 08:14 Dose: 25 mg Citalopram Hydrobromide (Celexa Tab*) 20 mg PO DAILY [facility] Last Admin: 07/09/17 08:14 Dose: 20 mg Cyclobenzaprine HCl (Flexeril Tab*) 10 mg PO TID PRN PRN Reason: SPASMS Last Admin: 07/09/17 13:54 Dose: 10 mg Dextrose (D50w Syringe 50 Ml*) 12.5 gm IV PUSH .FOR FS < 60 - SS PRN PRN Reason: FS < 60 Dimenhydrinate (Dramamine Iv*) 12.5 mg IV PUSH ONCE PRN PRN Reason: NAUSEA/VOMITING Fenofibrate (Tricor(Nf)) 160 mg PO DAILY [facility] PRN Reason: Protocol Last Admin: 07/09/17 08:15 Dose: 160 mg Fentanyl (Duragesic Patch 50 Mcg/Hr*) 50 mcg TRANSDERM Q72H [facility] Last Admin: 07/07/17 23:59 Dose: 50 mcg Fentanyl Citrate (Fentanyl*) 50 mcg IV SLOW PU Q3H PRN PRN Reason: PAIN Last Admin: 07/09/17 10:29 Dose: 50 mcg Gabapentin (Neurontin Cap(*)) 600 mg PO DAILY [facility] Last Admin: 07/09/17 08:14 Dose: 600 mg Hydralazine HCl (Apresoline Tab*) 25 mg PO TID [facility] Last Admin: 07/09/17 13:52 Dose: 25 mg Sodium Chloride (Ns 0.9% 1000 Ml*) 1,000 mls @ 75 mls/hr IV PER RATE [facility] Last Admin: 07/06/17 23:07 Dose: 75 mls/hr Lactated Ringer's (Lactated Ringers 1000 Ml Bag*) 1,000 mls @ 75 mls/hr IV .per rate [facility] Last Admin: 07/07/17 16:38 Dose: 75 mls/hr Insulin Human Regular (Humulin R U-500 (Concentr) 400 unit SUBCUT Q72H [facility] Last Admin: 07/08/17 15:50 Dose: 400 unit Non-Formulary Medication (Folic Acid [Th Folic Acid]) 800 mcg PO DAILY [facility] Last Admin: 07/09/17 08:50 Dose: 800 mcg Omeprazole (Prilosec Cap*) 20 mg PO BEDTIME [facility] Last Admin: 07/08/17 20:54 Dose: 20 mg Ondansetron HCl (Zofran Inj*) 4 mg IV Q6H PRN PRN Reason: NAUSEA/VOMITING Oxycodone HCl (Roxycodone Tab*) 5 mg PO Q4H PRN PRN Reason: pain 1-5 Last Admin: 07/05/17 07:46 Dose: 5 mg Oxycodone HCl (Roxycodone Tab*) 10 mg PO Q4H PRN PRN Reason: pain 6-10 Last Admin: 07/09/17 13:54 Dose: 10 mg Pharmacy Profile Note (Fentanyl Patch Check Q Shift) 1 note N/A 0700,1900 [facility] Last Admin: 07/09/17 07:04 Dose: 1 note Ropinirole HCl (Requip Tab*) 0.5 mg PO BEDTIME [facility] Last Admin: 07/08/17 20:54 Dose: 0.5 mg Glucose Results Blood Glucose Monitoring POC Start: 07/04/17 21: 32 Freq: ACHS Status: Active Protocol: Document 07/08/17 17:18 [id number] (Rec: 07/08/17 17:18 [id number]) Blood Glucose Monitoring POC Glucose Obtained Yes Glucose Result Being Addressed/Treated ( 169 mg/dL) Blood Glucose Method POC Glucose (bedside) Blood Glucose Comments 167 per pt's own pump Document 07/08/17 20:45 [id number] (Rec: 07/08/17 20:45 [id number]) Blood Glucose Monitoring POC Glucose Obtained Yes Glucose Result Being Addressed/Treated ( 240 mg/dL) Blood Glucose Method POC Glucose (bedside) Document 07/09/17 08:20 [id number] (Rec: 07/09/17 08:59 [id number]) Blood Glucose Monitoring POC Glucose Obtained Yes Document 07/09/17 12:00 [id number] (Rec: 07/09/17 14:46 [id number]) Blood Glucose Monitoring POC Glucose Obtained Yes Blood Glucose Monitoring POC Start: 07/06/17 22: 24 Freq: Q4H Status: Complete Protocol: Document 07/07/17 16:50 [id number] (Rec: 07/07/17 18:19 [id number]) Blood Glucose Monitoring POC Glucose Obtained Yes Glucose Result Being Addressed/Treated ( 151 mg/dL) Blood Glucose Method POC Glucose (bedside) Vital Signs Temp Pulse Resp BP Pulse Ox 97.6 F 85 16 146/53 95 07/09/17 11:09 07/09/17 11:09 07/09/17 13:54 07/09/17 11:09 07/09/17 11:09 EXAM: APPEARANCE: Slightly uncomfortable LUNGS: Clear ABDOMEN: Soft HEART: RRR NEUROLOGIC: Alert, muscle strength 5/5, decreased sensation peripherally ASSESSMENT/PLAN: 1. Sciatica down left leg: I will increase his fentanyl patch to 75. Will increase gabapentin to TID. May add Lidoderm. Will follow
[2017-07-09] MEDS ORDERED: Gabapentin CAP(*) 300 MG PO ONE (16:14)
--- NOTE | 2017-07-09 16:30 | PN ---
Subjective Date of Service: 07/09/17 Interval History: Patient seen and examined at bedside. Denies fever, chills, shortness of breath , chest discomfort, N/V/D. Pt reports that he was able to ambulate in the [place] this morning and since then he has had increased pain in his left thigh. Family History: Unchanged from Admission Social History: Unchanged from Admission Past Medical History: Unchanged from Admission Objective Active Medications: Acetaminophen (Tylenol Tab*) 650 mg PO Q4H PRN Reason: PAIN Aspirin (Aspirin Ec Low Dose*) 81 mg PO DAILY [facility] Atorvastatin Calcium (Lipitor*) 20 mg PO BEDTIME [facility] Carvedilol (Coreg Tab*) 25 mg PO BID [facility] Citalopram Hydrobromide (Celexa Tab*) 20 mg PO DAILY [facility] Cyclobenzaprine HCl (Flexeril Tab*) 10 mg PO TID PRN Reason: SPASMS Dextrose (D50w Syringe 50 Ml*) 12.5 gm IV PUSH .FOR FS < 60 - SS PRN Reason: FS < 60 Dimenhydrinate (Dramamine Iv*) 12.5 mg IV PUSH ONCE PRN Reason: NAUSEA/VOMITING Fenofibrate (Tricor(Nf)) 160 mg PO DAILY [facility] Fentanyl (Duragesic Patch 50 Mcg/Hr*) 75 mcg TRANSDERM Q72H [facility] Fentanyl Citrate (Fentanyl*) 50 mcg IV SLOW PU Q3H PRN Reason: PAIN Gabapentin (Neurontin Cap(*)) 600 mg PO BID [facility] Gabapentin (Neurontin Cap(*)) 300 mg PO ONCE ONE Stop: 07/09/17 16:15 Hydralazine HCl (Apresoline Tab*) 25 mg PO TID [facility] Sodium Chloride (Ns 0.9% 1000 Ml*) 1,000 mls @ 75 mls/hr IV PER RATE [facility] Lactated Ringer's (Lactated Ringers 1000 Ml Bag*) 1,000 mls @ 75 mls/hr IV .per rate [facility] Insulin Human Regular (Humulin R U-500 (Concentr) 400 unit SUBCUT Q72H [facility] Non-Formulary Medication (Folic Acid [Th Folic Acid]) 800 mcg PO DAILY [facility] Omeprazole (Prilosec Cap*) 20 mg PO BEDTIME [facility] Ondansetron HCl (Zofran Inj*) 4 mg IV Q6H PRN Reason: NAUSEA/VOMITING Oxycodone HCl (Roxycodone Tab*) 5 mg PO Q4H PRN Reason: pain 1-5 Oxycodone HCl (Roxycodone Tab*) 10 mg PO Q4H PRN Reason: pain 6-10 Pharmacy Profile Note (Fentanyl Patch Check Q Shift) 1 note N/A 0700,1900 [facility] Ropinirole HCl (Requip Tab*) 0.5 mg PO BEDTIME TARA Vital Signs - 8 hr 07/09/17 07/09/17 07/09/17 10:29 10:50 10:51 Temperature Pulse Rate Respiratory 50 16 16 Rate Blood Pressure (mmHg) O2 Sat by Pulse Oximetry 07/09/17 07/09/17 11:09 13:54 Temperature 97.6 F Pulse Rate 85 Respiratory 16 16 Rate Blood Pressure 146/53 (mmHg) O2 Sat by Pulse 95 Oximetry Oxygen Devices in Use Now: None, CPAP Appearance: NAD, laying in bed Ears/Nose/Mouth/Throat: Mucous Membranes Moist Respiratory: Symmetrical Chest Expansion and Respiratory Effort, Clear to Auscultation Cardiovascular: NL Sounds; No Murmurs; No JVD, RRR Abdominal: NL Sounds; No Tenderness; No Distention Extremities: No Edema Skin: No Rash or Ulcers Neurological: Alert and Oriented x 3, NL Muscle Strength and Tone Lines/Tubes/Other Access: Clean, Dry and Intact Peripheral IV - site benign Nutrition: Taking PO's Result Diagrams: 07/08/17 04:38 07/08/17 04:41 Additional Lab and Data: Assess/Plan/Problems-Billing Assessment: Mr. Harris 76 y.o male with PMH significant for DM, CAD, HTN, HLD, BHARATI, chronic back pain, CKD -3 and obesity who presented to the emergency room for low back pain and was found to have severe spinal stenosis. - Patient Problems (1) Spinal stenosis Code(s): M48.00 - SPINAL STENOSIS, SITE UNSPECIFIED SNOMED Code(s): 77998880 Comment: - S/P L3-4 decompressive lami, POD #2 - Management per neurosurgery - Pain management consult, input appreciated - Continue pain management, OT/PT, bowel regimen (2) Back pain Code(s): M54.9 - DORSALGIA, UNSPECIFIED SNOMED Code(s): 272751330 Comment: - Acute on Chronic - Continue pain medications and muscle relaxers (3) Diabetes mellitus Code(s): E11.9 - TYPE 2 DIABETES MELLITUS WITHOUT COMPLICATIONS SNOMED Code(s) : 46362990 Comment: - Glucose 140-240's - Continue insulin pump (4) BHARATI (obstructive sleep apnea) Code(s): G47.33 - OBSTRUCTIVE SLEEP APNEA (ADULT) (PEDIATRIC) SNOMED Code(s): 63253351 Comment: - Continue CPAP (5) CAD (coronary artery disease) Code(s): I25.10 - ATHSCL HEART DISEASE OF [place] CORONARY ARTERY W/O ANG PCTRS SNOMED Code(s): 74144046 Comment: - Stable, denies chest pain - Continue carvedilol (6) CKD (chronic kidney disease) Code(s): N18.9 - CHRONIC KIDNEY DISEASE, UNSPECIFIED SNOMED Code(s): 986515754 Comment: - Stage 3, appears to be at baseline (7) DVT prophylaxis Code(s): QIR8769 - SNOMED Code(s): 398728016 Comment: - SCDs (8) Full code status Code(s): Z78.9 - OTHER SPECIFIED HEALTH STATUS SNOMED Code(s): 249780374 Status and Disposition: Inpatient. Plan for discharge when medically stable, suspect he will need short term rehab. Attending: Regino Jean-Baptiste
[2017-07-09] MEDS: fentaNYL PATCH 75 MCG/HR* 75 MCG TRANSDERM SCH (17:54)
[2017-07-09] MEDS: Ropinirole TAB* 0.5 MG TAB PO SCH (20:48)
[2017-07-09] MEDS: Omeprazole CAP* 20 MG PO SCH (20:49)
[2017-07-09] MEDS: Atorvastatin* 20 MG TAB PO SCH (20:49)
[2017-07-10] MEDS: oxyCODONE TAB* 5 MG TAB PO PRN ×5 (05:33→19:58)
[2017-07-10] MEDS: Acetaminophen TAB* 325 MG PO PRN ×3 (05:37→19:53)
[2017-07-10] MEDS: fentaNYL Patch Check Q Shift 1 NOTE SCH ×2 (06:49→18:52)
[2017-07-10] MEDS: hydrALAZINE TAB* 25 MG PO SCH ×3 (09:07→21:30)
[2017-07-10] MEDS: Citalopram TAB* 20 MG PO SCH (09:07)
[2017-07-10] MEDS: Gabapentin CAP(*) 300 MG PO SCH ×2 (09:07→21:30)
[2017-07-10] MEDS: Carvedilol TAB* 25 MG PO SCH ×2 (09:07→21:30)
[2017-07-10] MEDS: Aspirin EC Low Dose* 81 MG TAB.EC PO SCH (09:07)
[2017-07-10] MEDS: FENOFIBRATE 160 MG PO SCH (09:08)
[2017-07-10] MEDS: FOLIC ACID 800 MCG PO SCH (09:08)
--- NOTE | 2017-07-10 10:40 | PN ---
Progress Note - Progress Note Date of Service: 07/10/17 SOAP: Subjective: [S/p decompressive lumbar laminectomy L3-4, POD#3. Persistent LLE shooting pain, worse with movement, sitting and walking. Able to walk to nursing station and back to room. Dr. Lockwood consulted yesterday and increased fentanyl patch and gabapentin. Patient is eating and drinking well. No pain while laying flat in bed. ] Objective: [ Vital Signs: Temp Pulse Resp BP Pulse Ox 97.8 F 63 18 151/54 94 07/10/17 03:47 07/10/17 03:47 07/10/17 09:08 07/10/17 03:47 07/10/17 03:47 General: Alert and oriented. Laying comfortably in bed. Neuro: Motor and sensory intact. Incision: Intact with annemarie. No swelling or erythema. Wound drain discontinued today. Extremities: Full ROM. Wound drain output 07/07/17 07/07/17 07/07/17 16:00 18:00 22:00 Output, WILBER #1 40 40 30 07/08/17 07/08/17 07/08/17 01:54 05:42 09:34 Output, WILBER #1 35 20 20 07/08/17 07/08/17 07/08/17 14:00 18:00 22:00 Output, WILBER #1 30 15 20 07/09/17 07/09/17 07/09/17 05:38 14:00 22:00 Output, WILBER #1 20 10 20 07/10/17 05:46 Output, WILBER #1 5 ] Assessment: [Persistent LLE pain post-operatively. Dr. Lockwood consulted for optimal pain management. Patient will be discharged to rehab when bed is available.] Plan: [1. PT/OT 2. Dr. Lockwood following for pain management. 3. Encourage ambulation and up out of bed. 4. Discharge to rehab when possible.]
[2017-07-10] MEDS ORDERED: Senna TAB PO PRN (12:42)
[2017-07-10] MEDS ORDERED: Magnesium Hydroxide LIQ* 30 ML UDC PO PRN (12:42)
--- NOTE | 2017-07-10 12:42 | PN ---
Subjective Date of Service: 07/10/17 Interval History: Patient seen and examined at bedside. Denies fever, chills, shortness of breath , chest discomfort, N/V/D. Pt states that he has not moved his bowels in 1 week. Family History: Unchanged from Admission Social History: Unchanged from Admission Past Medical History: Unchanged from Admission Objective Active Medications: Acetaminophen (Tylenol Tab*) 650 mg PO Q4H PRN Reason: PAIN Aspirin (Aspirin Ec Low Dose*) 81 mg PO DAILY [facility] Atorvastatin Calcium (Lipitor*) 20 mg PO BEDTIME [facility] Carvedilol (Coreg Tab*) 25 mg PO BID [facility] Citalopram Hydrobromide (Celexa Tab*) 20 mg PO DAILY [facility] Cyclobenzaprine HCl (Flexeril Tab*) 10 mg PO TID PRN Reason: SPASMS Dextrose (D50w Syringe 50 Ml*) 12.5 gm IV PUSH .FOR FS < 60 - SS PRN Reason: FS < 60 Dimenhydrinate (Dramamine Iv*) 12.5 mg IV PUSH ONCE PRN Reason: NAUSEA/VOMITING Fenofibrate (Tricor(Nf)) 160 mg PO DAILY [facility] Fentanyl (Duragesic Patch 75 Mcg/Hr*) 75 mcg TRANSDERM Q72H [facility] Fentanyl Citrate (Fentanyl*) 50 mcg IV SLOW PU Q3H PRN Reason: PAIN Gabapentin (Neurontin Cap(*)) 600 mg PO BID [facility] Hydralazine HCl (Apresoline Tab*) 25 mg PO TID [facility] Insulin Human Regular (Humulin R U-500 (Concentr) 400 unit SUBCUT Q72H [facility] Non-Formulary Medication (Folic Acid [Th Folic Acid]) 800 mcg PO DAILY [facility] Omeprazole (Prilosec Cap*) 20 mg PO BEDTIME [facility] Ondansetron HCl (Zofran Inj*) 4 mg IV Q6H PRN Reason: NAUSEA/VOMITING Oxycodone HCl (Roxycodone Tab*) 5 mg PO Q4H PRN Reason: pain 1-5 Oxycodone HCl (Roxycodone Tab*) 10 mg PO Q4H PRN Reason: pain 6-10 Pharmacy Profile Note (Fentanyl Patch Check Q Shift) 1 note N/A 0700,1900 [facility] Ropinirole HCl (Requip Tab*) 0.5 mg PO BEDTIME [facility] Vital Signs - 8 hr 07/10/17 07/10/1707/10/18 05:33 07:44 09:07 Respiratory 16 18 18 Rate 07/10/17 09:08 Respiratory 18 Rate Oxygen Devices in Use Now: None, CPAP Appearance: NAD, laying in bed Ears/Nose/Mouth/Throat: Mucous Membranes Moist Respiratory: Symmetrical Chest Expansion and Respiratory Effort, Clear to Auscultation Cardiovascular: NL Sounds; No Murmurs; No JVD, RRR Abdominal: NL Sounds; No Tenderness; No Distention Extremities: No Edema Skin: No Rash or Ulcers Neurological: Alert and Oriented x 3, NL Muscle Strength and Tone Lines/Tubes/Other Access: Clean, Dry and Intact Peripheral IV - site benign Nutrition: Taking PO's Result Diagrams: 07/08/17 04:38 07/08/17 04:41 Additional Lab and Data: Assess/Plan/Problems-Billing Assessment: Mr. Harris 76 y.o male with PMH significant for DM, CAD, HTN, HLD, BHARATI, chronic back pain, CKD -3 and obesity who presented to the emergency room for low back pain and was found to have severe spinal stenosis. - Patient Problems (1) Spinal stenosis Code(s): M48.00 - SPINAL STENOSIS, SITE UNSPECIFIED SNOMED Code(s): 82898676 Comment: - S/P L3-4 decompressive lami, POD #3 - Management per neurosurgery - Pain management consult, input appreciated - Continue pain management, OT/PT, bowel regimen (2) Back pain Code(s): M54.9 - DORSALGIA, UNSPECIFIED SNOMED Code(s): 024479399 Comment: - Acute on Chronic - Continue pain medications and muscle relaxers (3) Constipation Code(s): K59.00 - CONSTIPATION, UNSPECIFIED SNOMED Code(s): 02210804 Comment: - Pt states that he is passing flatus - Will start bowel medications (4) Diabetes mellitus Code(s): E11.9 - TYPE 2 DIABETES MELLITUS WITHOUT COMPLICATIONS SNOMED Code(s) : 05846843 Comment: - Glucose 110-190's - Continue insulin pump (5) BHARATI (obstructive sleep apnea) Code(s): G47.33 - OBSTRUCTIVE SLEEP APNEA (ADULT) (PEDIATRIC) SNOMED Code(s): 95938601 Comment: - Continue CPAP (6) CAD (coronary artery disease) Code(s): I25.10 - ATHSCL HEART DISEASE OF [place] CORONARY ARTERY W/O ANG PCTRS SNOMED Code(s): 63185976 Comment: - Stable, denies chest pain - Continue carvedilol (7) CKD (chronic kidney disease) Code(s): N18.9 - CHRONIC KIDNEY DISEASE, UNSPECIFIED SNOMED Code(s): 377977527 Comment: - Stage 3, appears to be at baseline (8) DVT prophylaxis Code(s): JHV9334 - SNOMED Code(s): 793182008 Comment: - SCDs (9) Full code status Code(s): Z78.9 - OTHER SPECIFIED HEALTH STATUS SNOMED Code(s): 569724855 Status and Disposition: Inpatient. Plan for discharge when medically stable, suspect he will need short term rehab.
[2017-07-10] MEDS ORDERED: Gabapentin CAP(*) 300 MG PO SCH (14:00)
--- NOTE | 2017-07-10 15:05 | PN ---
Progress Note - Progress Note Date of Service: 07/10/17 Note: INPATIENT PAIN FOLLOW UP NOTE Konstantin visited. He feels better today with less pain in his legs. He still has pin in the back, but this is to be expected. Due to his Chronic kidney disease, will keep Gabapentin at BID Current Medications Acetaminophen (Tylenol Tab*) 650 mg PO Q4H PRN PRN Reason: PAIN Last Admin: 07/10/17 13:53 Dose: 650 mg Aspirin (Aspirin Ec Low Dose*) 81 mg PO DAILY [facility] Last Admin: 07/10/17 09:07 Dose: 81 mg Atorvastatin Calcium (Lipitor*) 20 mg PO BEDTIME [facility] Last Admin: 07/09/17 20:49 Dose: 20 mg Carvedilol (Coreg Tab*) 25 mg PO BID [facility] Last Admin: 07/10/17 09:07 Dose: 25 mg Citalopram Hydrobromide (Celexa Tab*) 20 mg PO DAILY [facility] Last Admin: 07/10/17 09:07 Dose: 20 mg Cyclobenzaprine HCl (Flexeril Tab*) 10 mg PO TID PRN PRN Reason: SPASMS Last Admin: 07/09/17 13:54 Dose: 10 mg Dextrose (D50w Syringe 50 Ml*) 12.5 gm IV PUSH .FOR FS < 60 - SS PRN PRN Reason: FS < 60 Dimenhydrinate (Dramamine Iv*) 12.5 mg IV PUSH ONCE PRN PRN Reason: NAUSEA/VOMITING Fenofibrate (Tricor(Nf)) 160 mg PO DAILY [facility] PRN Reason: Protocol Last Admin: 07/10/17 09:08 Dose: 160 mg Fentanyl (Duragesic Patch 75 Mcg/Hr*) 75 mcg TRANSDERM Q72H [facility] Last Admin: 07/09/17 17:54 Dose: 75 mcg Fentanyl Citrate (Fentanyl*) 50 mcg IV SLOW PU Q3H PRN PRN Reason: PAIN Last Admin: 07/09/17 16:49 Dose: 50 mcg Gabapentin (Neurontin Cap(*)) 600 mg PO BID [facility] Last Admin: 07/10/17 09:07 Dose: 600 mg Hydralazine HCl (Apresoline Tab*) 25 mg PO TID [facility] Last Admin: 07/10/17 13:32 Dose: 25 mg Insulin Human Regular (Humulin R U-500 (Concentr) 400 unit SUBCUT Q72H [facility] Last Admin: 07/08/17 15:50 Dose: 400 unit Magnesium Hydroxide (Milk Of Magnesia Liq*) 30 ml PO Q6H PRN PRN Reason: CONSTIPATION Last Admin: 07/10/17 13:33 Dose: 30 ml Non-Formulary Medication (Folic Acid [Th Folic Acid]) 800 mcg PO DAILY [facility] Last Admin: 07/10/17 09:08 Dose: 800 mcg Omeprazole (Prilosec Cap*) 20 mg PO BEDTIME [facility] Last Admin: 07/09/17 20:49 Dose: 20 mg Ondansetron HCl (Zofran Inj*) 4 mg IV Q6H PRN PRN Reason: NAUSEA/VOMITING Oxycodone HCl (Roxycodone Tab*) 5 mg PO Q4H PRN PRN Reason: pain 1-5 Last Admin: 07/05/17 07:46 Dose: 5 mg Oxycodone HCl (Roxycodone Tab*) 10 mg PO Q4H PRN PRN Reason: pain 6-10 Last Admin: 07/10/17 13:32 Dose: 10 mg Pharmacy Profile Note (Fentanyl Patch Check Q Shift) 1 note N/A 0700,1900 [facility] Last Admin: 07/10/17 06:49 Dose: 1 note Polyethylene Glycol/Electrolytes (Miralax*) 17 gm PO DAILY PRN PRN Reason: CONSTIPATION Ropinirole HCl (Requip Tab*) 0.5 mg PO BEDTIME [facility] Last Admin: 07/09/17 20:48 Dose: 0.5 mg Senna (Senokot Tab*) 1 tab PO BEDTIME PRN PRN Reason: CONSTIPATION Glucose Results Blood Glucose Monitoring POC Start: 07/04/17 21: 32 Freq: ACHS Status: Active Protocol: Document 07/09/17 08:20 [id number] (Rec: 07/09/17 08:59 [id number]) Blood Glucose Monitoring POC Glucose Obtained Yes Document 07/09/17 12:00 [id number] (Rec: 07/09/17 14:46 [id number]) Blood Glucose Monitoring POC Glucose Obtained Yes Document 07/09/17 18:00 [id number] (Rec: 07/09/17 18:56 [id number]) Blood Glucose Monitoring POC Glucose Obtained Yes Glucose Result Being Addressed/Treated ( 143 mg/dL) Blood Glucose Method POC Glucose (bedside) Document 07/09/17 21:00 [id number] (Rec: 07/09/17 23:36 [id number]) Blood Glucose Monitoring POC Glucose Obtained Yes Glucose Result Being Addressed/Treated ( 197 mg/dL) Blood Glucose Method POC Glucose (bedside) Document 07/10/17 07:30 [id number] (Rec: 07/10/17 07:52 [id number]) Blood Glucose Monitoring POC Glucose Obtained Yes Glucose Result Being Addressed/Treated ( 162 mg/dL) Blood Glucose Method POC Glucose (bedside) Vital Signs Temp Pulse Resp BP Pulse Ox 98.6 F 65 16 142/52 95 07/10/17 11:39 07/10/17 11:39 07/10/17 13:32 07/10/17 11:39 07/10/17 11:39 EXAM: APPEARANCE: comfortable appearing LUNGS: Clear HEART: RRR ABDOMEN: Soft NEUROLOGIC: Alert, muscle strength 5/5, decreased sensation peripherally ASSESSMENT/PLAN: 1. Sciatica down left leg: I will continue his fentanyl patch at 75 mcg/hr. Will make gabapentin BID due to CKD. 2. Diabetic Peripheral Neuropathy: Continue Gabapentin, 600 mg BID 3. Spasms: Flexeril for now, can change to Baclofen if flexeril ineffective
[2017-07-10] MEDS: Polyethylene Glycol 3350* 17 GM PACKET PO PRN (21:28)
[2017-07-10] MEDS: Atorvastatin* 20 MG TAB PO SCH (21:29)
[2017-07-10] MEDS: Senna TAB PO SCH (21:29)
[2017-07-10] MEDS: Ropinirole TAB* 0.5 MG TAB PO SCH (21:29)
[2017-07-10] MEDS: Omeprazole CAP* 20 MG PO SCH (21:30)
[2017-07-10] MEDS: Docusate CAP* 100 MG PO SCH (21:30)
[2017-07-11] MEDS: fentaNYL Patch Check Q Shift 1 NOTE SCH ×2 (06:58→19:28)
[2017-07-11] MEDS: FOLIC ACID 800 MCG PO SCH (09:16)
[2017-07-11] MEDS: Carvedilol TAB* 25 MG PO SCH ×2 (09:16→20:56)
[2017-07-11] MEDS: Citalopram TAB* 20 MG PO SCH (09:16)
[2017-07-11] MEDS: Gabapentin CAP(*) 300 MG PO SCH ×2 (09:16→20:54)
[2017-07-11] MEDS: Docusate CAP* 100 MG PO SCH ×2 (09:16→20:55)
[2017-07-11] MEDS: hydrALAZINE TAB* 25 MG PO SCH ×3 (09:16→20:56)
[2017-07-11] MEDS: FENOFIBRATE 160 MG PO SCH (09:16)
[2017-07-11] MEDS: Aspirin EC Low Dose* 81 MG TAB.EC PO SCH (09:16)
[2017-07-11] MEDS: Acetaminophen TAB* 325 MG PO PRN ×4 (09:20→21:27)
[2017-07-11] MEDS: oxyCODONE TAB* 5 MG TAB PO PRN ×4 (09:20→21:28)
[2017-07-11] MEDS ORDERED: fentaNYL* 50 MCG/ML 2 ML VIAL (100 MCG VIAL) IV SLOW PU PRN (13:29)
--- NOTE | 2017-07-11 14:27 | PN ---
Subjective Date of Service: 07/11/17 Interval History: Patient seen and examined at bedside. Denies fever, chills, shortness of breath , chest discomfort, N/V/D. Pt states that pain is slowly improving. He has moved his bowels. Continues to have pain, but it improving and he was able to ambulate in the halls. Family History: Unchanged from Admission Social History: Unchanged from Admission Past Medical History: Unchanged from Admission Objective Active Medications: Acetaminophen (Tylenol Tab*) 650 mg PO Q4H PRN Reason: PAIN Aspirin (Aspirin Ec Low Dose*) 81 mg PO DAILY [facility] Atorvastatin Calcium (Lipitor*) 20 mg PO BEDTIME [facility] Carvedilol (Coreg Tab*) 25 mg PO BID [facility] Citalopram Hydrobromide (Celexa Tab*) 20 mg PO DAILY [facility] Cyclobenzaprine HCl (Flexeril Tab*) 10 mg PO TID PRN Reason: SPASMS Dextrose (D50w Syringe 50 Ml*) 12.5 gm IV PUSH .FOR FS < 60 - SS PRN Reason: FS < 60 Dimenhydrinate (Dramamine Iv*) 12.5 mg IV PUSH ONCE PRN Reason: NAUSEA/VOMITING Docusate Sodium (Colace Cap*) 100 mg PO BID [facility] Fenofibrate (Tricor(Nf)) 160 mg PO DAILY [facility] Fentanyl (Duragesic Patch 75 Mcg/Hr*) 75 mcg TRANSDERM Q72H [facility] Fentanyl Citrate (Fentanyl*) 25 mcg IV SLOW PU Q4H PRN Reason: PAIN Gabapentin (Neurontin Cap(*)) 600 mg PO BID [facility] Hydralazine HCl (Apresoline Tab*) 25 mg PO TID [facility] Insulin Human Regular (Humulin R U-500 (Concentr) 400 unit SUBCUT Q72H [facility] Magnesium Hydroxide (Milk Of Magnesia Liq*) 30 ml PO Q6H PRN Reason: CONSTIPATION Non-Formulary Medication (Folic Acid [Th Folic Acid]) 800 mcg PO DAILY [facility] Omeprazole (Prilosec Cap*) 20 mg PO BEDTIME [facility] Ondansetron HCl (Zofran Inj*) 4 mg IV Q6H PRN Reason: NAUSEA/VOMITING Oxycodone HCl (Roxycodone Tab*) 5 mg PO Q4H PRN Reason: pain 1-5 Oxycodone HCl (Roxycodone Tab*) 10 mg PO Q4H PRN Reason: pain 6-10 Pharmacy Profile Note (Fentanyl Patch Check Q Shift) 1 note N/A 0700,1900 [facility] Polyethylene Glycol/Electrolytes (Miralax*) 17 gm PO DAILY PRN Reason: CONSTIPATION Ropinirole HCl (Requip Tab*) 0.5 mg PO BEDTIME [facility] Senna (Senokot Tab*) 2 tab PO BEDTIME [facility] Vital Signs - 8 hr 07/11/17 07/11/17 07/11/17 07:54 09:16 09:20 Temperature 98.0 F Pulse Rate 66 Respiratory 14 16 16 Rate Blood Pressure 155/64 (mmHg) O2 Sat by Pulse 96 96 Oximetry 07/11/17 07/11/17 11:29 13:19 Temperature 98.1 F Pulse Rate 63 Respiratory 16 16 Rate Blood Pressure 136/48 (mmHg) O2 Sat by Pulse 95 Oximetry Oxygen Devices in Use Now: None Appearance: NAD, laying in bed Ears/Nose/Mouth/Throat: Mucous Membranes Moist Respiratory: Symmetrical Chest Expansion and Respiratory Effort, Clear to Auscultation Cardiovascular: NL Sounds; No Murmurs; No JVD, RRR Abdominal: NL Sounds; No Tenderness; No Distention Extremities: No Edema Skin: No Rash or Ulcers Neurological: Alert and Oriented x 3, NL Muscle Strength and Tone Lines/Tubes/Other Access: Clean, Dry and Intact Peripheral IV - site benign Nutrition: Taking PO's Result Diagrams: 07/08/17 04:38 07/08/17 04:41 Additional Lab and Data: Assess/Plan/Problems-Billing Assessment: Mr. Harris 76 y.o male with PMH significant for DM, CAD, HTN, HLD, BHARATI, chronic back pain, CKD -3 and obesity who presented to the emergency room for low back pain and was found to have severe spinal stenosis. - Patient Problems (1) Spinal stenosis Code(s): M48.00 - SPINAL STENOSIS, SITE UNSPECIFIED SNOMED Code(s): 90276243 Comment: - S/P L3-4 decompressive lami, POD #4 - Management per neurosurgery - Pain management consult, input appreciated - Continue pain management, OT/PT, bowel regimen (2) Back pain Code(s): M54.9 - DORSALGIA, UNSPECIFIED SNOMED Code(s): 835704666 Comment: - Acute on Chronic - Continue pain medications and muscle relaxers (3) Constipation Code(s): K59.00 - CONSTIPATION, UNSPECIFIED SNOMED Code(s): 30820975 Comment: - Resolved - Continue bowel regimen (4) Diabetes mellitus Code(s): E11.9 - TYPE 2 DIABETES MELLITUS WITHOUT COMPLICATIONS SNOMED Code(s) : 81957358 Comment: - Glucose 120-150's - Continue insulin pump (5) BHARATI (obstructive sleep apnea) Code(s): G47.33 - OBSTRUCTIVE SLEEP APNEA (ADULT) (PEDIATRIC) SNOMED Code(s): 54382940 Comment: - Continue CPAP (6) CAD (coronary artery disease) Code(s): I25.10 - ATHSCL HEART DISEASE OF [place] CORONARY ARTERY W/O ANG PCTRS SNOMED Code(s): 28020477 Comment: - Stable, denies chest pain - Continue carvedilol (7) CKD (chronic kidney disease) Code(s): N18.9 - CHRONIC KIDNEY DISEASE, UNSPECIFIED SNOMED Code(s): 538193831 Comment: - Stage 3, appears to be at baseline (8) DVT prophylaxis Code(s): WMC4205 - SNOMED Code(s): 175924339 Comment: - SCDs (9) Full code status Code(s): Z78.9 - OTHER SPECIFIED HEALTH STATUS SNOMED Code(s): 671731322 Status and Disposition: Inpatient. Plan for discharge when medically stable, suspect he will need short term rehab.
[2017-07-11] MEDS: Atorvastatin* 20 MG TAB PO SCH (20:55)
[2017-07-11] MEDS: Ropinirole TAB* 0.5 MG TAB PO SCH (20:55)
[2017-07-11] MEDS: Omeprazole CAP* 20 MG PO SCH (20:55)
[2017-07-11] MEDS: Senna TAB PO SCH (20:57)
[2017-07-12] MEDS: Acetaminophen TAB* 325 MG PO PRN ×4 (04:05→19:21)
[2017-07-12] MEDS: oxyCODONE TAB* 5 MG TAB PO PRN ×4 (04:06→19:19)
[2017-07-12] MEDS: Cyclobenzaprine TAB* 10 MG PO PRN ×3 (04:07→20:59)
[2017-07-12] MEDS: fentaNYL Patch Check Q Shift 1 NOTE SCH ×2 (06:54→19:01)
[2017-07-12] MEDS: Gabapentin CAP(*) 300 MG PO SCH ×2 (09:02→21:00)
[2017-07-12] MEDS: hydrALAZINE TAB* 25 MG PO SCH ×3 (09:02→20:59)
[2017-07-12] MEDS: Docusate CAP* 100 MG PO SCH ×2 (09:02→20:59)
[2017-07-12] MEDS: Citalopram TAB* 20 MG PO SCH (09:02)
[2017-07-12] MEDS: Carvedilol TAB* 25 MG PO SCH ×2 (09:02→20:59)
[2017-07-12] MEDS: Aspirin EC Low Dose* 81 MG TAB.EC PO SCH (09:03)
[2017-07-12] MEDS: FOLIC ACID 800 MCG PO SCH (09:03)
[2017-07-12] MEDS: FENOFIBRATE 160 MG PO SCH (09:04)
--- NOTE | 2017-07-12 10:19 | PN ---
Progress Note - Progress Note Date of Service: 07/11/17 SOAP: Subjective: [Patient seen and examined on 07/11/17. Reports improvement in low back and LLE pain. Ambulates the sterling with assistance of a walker. Continues to experience occasional shooting pain in LLE. More optimistic today. ] Objective: [General: Alert and oriented. No acute distress. Neuro: Motor and sensory intact. Incision: Intact with annemarie. No swelling, erythema or warmth. Extremities: Full ROM] Assessment: [Improving post-operatively. Pain better controlled. ] Plan: [1. Rehab when bed available. 2. Continue pain management. 3. Encourage up out of bed and ambulation. 4. PT and OT.]
--- NOTE | 2017-07-12 15:38 | PN ---
Progress Note - Progress Note Date of Service: 07/12/17 SOAP: Subjective: [Patient seen and examined this morning at 0800. Feeling well this morning and reports better pain control for the past 2 days. Continues to experience muscle spasm type shooting pain in the left sided low back and LLE. Ambulating with assistance of a walker. Working with PT. ] Objective: [ Vital Signs: Temp Pulse Resp BP Pulse Ox 98.3 F 62 14 133/50 96 07/12/17 15:35 07/12/17 15:35 07/12/17 15:35 07/12/17 15:35 07/12/17 15:35 General: Alert and laying comfortably in bed. Neuro: Motor and sensory intact. SLR negative right and left. Incision: Intact with annemarie. Incision without swelling, drainage, erythema and warmth. Extremities: Full ROM. ] Assessment: [Patient is stable post-operatively and pain is better controlled now. Continues to improve with PT.] Plan: [1. Rehab when bed available. 2. Continue pain management. 3. Encourage up out of bed and ambulation with walker.]
[2017-07-12] MEDS: fentaNYL PATCH 75 MCG/HR* 75 MCG TRANSDERM SCH (17:18)
[2017-07-12] MEDS: INSULIN REGULAR 500 UNIT/ML SUBCUT SCH (17:27)
--- NOTE | 2017-07-12 20:34 | PN ---
Subjective Date of Service: 07/12/17 Interval History: Patient seen and examined at bedside. Denies fever, chills, shortness of breath , chest discomfort, N/V/D. Pt states that his pain continues to improve. Family History: Unchanged from Admission Social History: Unchanged from Admission Past Medical History: Unchanged from Admission Objective Active Medications: Acetaminophen (Tylenol Tab*) 650 mg PO Q4H PRN Reason: PAIN Aspirin (Aspirin Ec Low Dose*) 81 mg PO DAILY [facility] Atorvastatin Calcium (Lipitor*) 20 mg PO BEDTIME [facility] Carvedilol (Coreg Tab*) 25 mg PO BID [facility] Citalopram Hydrobromide (Celexa Tab*) 20 mg PO DAILY [facility] Cyclobenzaprine HCl (Flexeril Tab*) 10 mg PO TID PRN Reason: SPASMS Dextrose (D50w Syringe 50 Ml*) 12.5 gm IV PUSH .FOR FS < 60 - SS PRN Reason: FS < 60 Dimenhydrinate (Dramamine Iv*) 12.5 mg IV PUSH ONCE PRN Reason: NAUSEA/VOMITING Docusate Sodium (Colace Cap*) 100 mg PO BID [facility] Fenofibrate (Tricor(Nf)) 160 mg PO DAILY [facility] Fentanyl (Duragesic Patch 75 Mcg/Hr*) 75 mcg TRANSDERM Q72H [facility] Fentanyl Citrate (Fentanyl*) 25 mcg IV SLOW PU Q4H PRN Reason: PAIN Gabapentin (Neurontin Cap(*)) 600 mg PO BID [facility] Hydralazine HCl (Apresoline Tab*) 25 mg PO TID [facility] Insulin Human Regular (Humulin R U-500 (Concentr) 400 unit SUBCUT Q72H [facility] Magnesium Hydroxide (Milk Of Magnesia Liq*) 30 ml PO Q6H PRN Reason: CONSTIPATION Non-Formulary Medication (Folic Acid [Th Folic Acid]) 800 mcg PO DAILY [facility] Omeprazole (Prilosec Cap*) 20 mg PO BEDTIME [facility] Ondansetron HCl (Zofran Inj*) 4 mg IV Q6H PRN Reason: NAUSEA/VOMITING Oxycodone HCl (Roxycodone Tab*) 5 mg PO Q4H PRN Reason: pain 1-5 Oxycodone HCl (Roxycodone Tab*) 10 mg PO Q4H PRN Reason: pain 6-10 Pharmacy Profile Note (Fentanyl Patch Check Q Shift) 1 note N/A 0700,1900 [facility] Polyethylene Glycol/Electrolytes (Miralax*) 17 gm PO DAILY PRN Reason: CONSTIPATION Ropinirole HCl (Requip Tab*) 0.5 mg PO BEDTIME [facility] Senna (Senokot Tab*) 2 tab PO BEDTIME [facility] Vital Signs - 8 hr 07/12/17 07/12/17 07/12/17 14:14 14:20 15:35 Temperature 98.3 F Pulse Rate 62 Respiratory 16 18 14 Rate Blood Pressure 133/50 (mmHg) O2 Sat by Pulse 96 Oximetry 07/12/17 07/12/17 07/12/17 16:00 17:28 19:19 Temperature Pulse Rate Respiratory 18 16 Rate Blood Pressure (mmHg) O2 Sat by Pulse 96 Oximetry Oxygen Devices in Use Now: None Appearance: NAD, sitting up on the side of the bed Ears/Nose/Mouth/Throat: Mucous Membranes Moist Respiratory: Symmetrical Chest Expansion and Respiratory Effort, Clear to Auscultation Cardiovascular: NL Sounds; No Murmurs; No JVD, RRR Abdominal: NL Sounds; No Tenderness; No Distention Extremities: No Edema Skin: No Rash or Ulcers Neurological: Alert and Oriented x 3, NL Muscle Strength and Tone Lines/Tubes/Other Access: Clean, Dry and Intact Peripheral IV - site benign Nutrition: Taking PO's Result Diagrams: 07/08/17 04:38 07/08/17 04:41 Additional Lab and Data: Assess/Plan/Problems-Billing Assessment: Mr. Harris 76 y.o male with PMH significant for DM, CAD, HTN, HLD, BHARATI, chronic back pain, CKD -3 and obesity who presented to the emergency room for low back pain and was found to have severe spinal stenosis. - Patient Problems (1) Spinal stenosis Code(s): M48.00 - SPINAL STENOSIS, SITE UNSPECIFIED SNOMED Code(s): 22042276 Comment: - S/P L3-4 decompressive lami, POD #5 - Management per neurosurgery - Pain management consult, input appreciated - Continue pain management, OT/PT, bowel regimen (2) Back pain Code(s): M54.9 - DORSALGIA, UNSPECIFIED SNOMED Code(s): 803349761 Comment: - Acute on Chronic - Continue pain medications and muscle relaxers (3) Constipation Code(s): K59.00 - CONSTIPATION, UNSPECIFIED SNOMED Code(s): 35527925 Comment: - Resolved - Continue bowel regimen (4) Diabetes mellitus Code(s): E11.9 - TYPE 2 DIABETES MELLITUS WITHOUT COMPLICATIONS SNOMED Code(s) : 50111228 Comment: - Glucose 120-150's - Continue insulin pump (5) BHARATI (obstructive sleep apnea) Code(s): G47.33 - OBSTRUCTIVE SLEEP APNEA (ADULT) (PEDIATRIC) SNOMED Code(s): 60586052 Comment: - Continue CPAP (6) CAD (coronary artery disease) Code(s): I25.10 - ATHSCL HEART DISEASE OF [place] CORONARY ARTERY W/O ANG PCTRS SNOMED Code(s): 11186748 Comment: - Stable, denies chest pain - Continue carvedilol (7) CKD (chronic kidney disease) Code(s): N18.9 - CHRONIC KIDNEY DISEASE, UNSPECIFIED SNOMED Code(s): 688600450 Comment: - Stage 3, appears to be at baseline (8) DVT prophylaxis Code(s): OID7130 - SNOMED Code(s): 116909361 Comment: - SCDs (9) Full code status Code(s): Z78.9 - OTHER SPECIFIED HEALTH STATUS SNOMED Code(s): 928064221 Status and Disposition: Inpatient. Discharge when medically stable, plan for discharge to [facility] in the AM.
[2017-07-12] MEDS: Ropinirole TAB* 0.5 MG TAB PO SCH (20:59)
[2017-07-12] MEDS: Atorvastatin* 20 MG TAB PO SCH (20:59)
[2017-07-12] MEDS: Senna TAB PO SCH (20:59)
[2017-07-12] MEDS: Omeprazole CAP* 20 MG PO SCH (20:59)
[2017-07-13] MEDS: fentaNYL Patch Check Q Shift 1 NOTE SCH (06:38)
[2017-07-13] MEDS: Acetaminophen TAB* 325 MG PO PRN ×2 (07:38→11:56)
[2017-07-13] MEDS: oxyCODONE TAB* 5 MG TAB PO PRN ×2 (07:38→11:56)
[2017-07-13] MEDS: Polyethylene Glycol 3350* 17 GM PACKET PO PRN (09:24)
[2017-07-13] MEDS: Citalopram TAB* 20 MG PO SCH (09:25)
[2017-07-13] MEDS: Carvedilol TAB* 25 MG PO SCH (09:25)
[2017-07-13] MEDS: hydrALAZINE TAB* 25 MG PO SCH ×2 (09:25→13:24)
[2017-07-13] MEDS: Docusate CAP* 100 MG PO SCH (09:25)
[2017-07-13] MEDS: Gabapentin CAP(*) 300 MG PO SCH (09:25)
[2017-07-13] MEDS: Aspirin EC Low Dose* 81 MG TAB.EC PO SCH (09:25)
[2017-07-13] MEDS: FOLIC ACID 800 MCG PO SCH (09:26)
[2017-07-13] MEDS: Cyclobenzaprine TAB* 10 MG PO PRN ×2 (09:26→13:24)
[2017-07-13] MEDS: FENOFIBRATE 160 MG PO SCH (09:26)
[2017-07-13 11:58] VITALS: BP 137/54
--- NOTE | 2017-07-13 12:14 | PN ---
Subjective Date of Service: 07/13/17 Interval History: FEELING BETTER TODAY, PAIN IS IMPROVING DAILY. FEELING A LITTLE DOWN TODAY ABOUT GOING TO REHAB, DENIES ABD PAIN N/V/D. DENIES CHEST PAIN OR SHORTNESS OF BREATH. Family History: Unchanged from Admission Social History: Unchanged from Admission Past Medical History: Unchanged from Admission Objective Active Medications: Acetaminophen (Tylenol Tab*) 650 mg PO Q4H PRN PRN Reason: PAIN Last Admin: 07/13/17 11:56 Dose: 650 mg Aspirin (Aspirin Ec Low Dose*) 81 mg PO DAILY [facility] Last Admin: 07/13/17 09:25 Dose: 81 mg Atorvastatin Calcium (Lipitor*) 20 mg PO BEDTIME [facility] Last Admin: 07/12/17 20:59 Dose: 20 mg Carvedilol (Coreg Tab*) 25 mg PO BID [facility] Last Admin: 07/13/17 09:25 Dose: 25 mg Citalopram Hydrobromide (Celexa Tab*) 20 mg PO DAILY [facility] Last Admin: 07/13/17 09:25 Dose: 20 mg Cyclobenzaprine HCl (Flexeril Tab*) 10 mg PO TID PRN PRN Reason: SPASMS Last Admin: 07/13/17 09:26 Dose: 10 mg Dextrose (D50w Syringe 50 Ml*) 12.5 gm IV PUSH .FOR FS < 60 - SS PRN PRN Reason: FS < 60 Dimenhydrinate (Dramamine Iv*) 12.5 mg IV PUSH ONCE PRN PRN Reason: NAUSEA/VOMITING Docusate Sodium (Colace Cap*) 100 mg PO BID [facility] Last Admin: 07/13/17 09:25 Dose: 100 mg Fenofibrate (Tricor(Nf)) 160 mg PO DAILY [facility] PRN Reason: Protocol Last Admin: 07/13/17 09:26 Dose: 160 mg Fentanyl (Duragesic Patch 75 Mcg/Hr*) 75 mcg TRANSDERM Q72H [facility] Last Admin: 07/12/17 17:18 Dose: 75 mcg Fentanyl Citrate (Fentanyl*) 25 mcg IV SLOW PU Q4H PRN PRN Reason: PAIN Gabapentin (Neurontin Cap(*)) 600 mg PO BID [facility] Last Admin: 07/13/17 09:25 Dose: 600 mg Hydralazine HCl (Apresoline Tab*) 25 mg PO TID [facility] Last Admin: 07/13/17 09:25 Dose: 25 mg Insulin Human Regular (Humulin R U-500 (Concentr) 400 unit SUBCUT Q72H [facility] Last Admin: 07/12/17 17:27 Dose: 400 unit Magnesium Hydroxide (Milk Of Magnesia Liq*) 30 ml PO Q6H PRN PRN Reason: CONSTIPATION Last Admin: 07/10/17 13:33 Dose: 30 ml Non-Formulary Medication (Folic Acid [Th Folic Acid]) 800 mcg PO DAILY [facility] Last Admin: 07/13/17 09:26 Dose: 800 mcg Omeprazole (Prilosec Cap*) 20 mg PO BEDTIME [facility] Last Admin: 07/12/17 20:59 Dose: 20 mg Ondansetron HCl (Zofran Inj*) 4 mg IV Q6H PRN PRN Reason: NAUSEA/VOMITING Oxycodone HCl (Roxycodone Tab*) 5 mg PO Q4H PRN PRN Reason: pain 1-5 Last Admin: 07/05/17 07:46 Dose: 5 mg Oxycodone HCl (Roxycodone Tab*) 10 mg PO Q4H PRN PRN Reason: pain 6-10 Last Admin: 07/13/17 11:56 Dose: 10 mg Pharmacy Profile Note (Fentanyl Patch Check Q Shift) 1 note N/A 0700,1900 [facility] Last Admin: 07/13/17 06:38 Dose: 1 note Polyethylene Glycol/Electrolytes (Miralax*) 17 gm PO DAILY PRN PRN Reason: CONSTIPATION Last Admin: 07/13/17 09:24 Dose: 17 gm Ropinirole HCl (Requip Tab*) 0.5 mg PO BEDTIME [facility] Last Admin: 07/12/17 20:59 Dose: 0.5 mg Senna (Senokot Tab*) 2 tab PO BEDTIME [facility] Last Admin: 07/12/17 20:59 Dose: 2 tab Vital Signs - 8 hr 07/13/17 07/13/17 07/13/17 07:38 07:40 09:25 Temperature 97.9 F Pulse Rate 65 Respiratory 18 18 18 Rate Blood Pressure 145/57 (mmHg) O2 Sat by Pulse 95 95 Oximetry 07/13/17 07/13/17 07/13/17 09:26 09:49 11:38 Temperature 98.4 F Pulse Rate 63 Respiratory 18 18 17 Rate Blood Pressure 137/54 (mmHg) O2 Sat by Pulse 95 Oximetry 07/13/17 07/13/17 11:56 11:57 Temperature Pulse Rate Respiratory 16 16 Rate Blood Pressure (mmHg) O2 Sat by Pulse Oximetry Oxygen Devices in Use Now: None Appearance: ALERT, AWAKE , RESTING IN BED. APPEARS COMFORTABLE Eyes: No Scleral Icterus Ears/Nose/Mouth/Throat: Clear Oropharnyx, Mucous Membranes Moist Neck: NL Appearance and Movements; NL JVP, Trachea Midline Respiratory: Symmetrical Chest Expansion and Respiratory Effort, Clear to Auscultation Cardiovascular: NL Sounds; No Murmurs; No JVD, RRR, No Edema Abdominal: NL Sounds; No Tenderness; No Distention Extremities: No Edema, No Clubbing, Cyanosis Skin: No Rash or Ulcers, - - DORON INTACT TO LOWER LUMBAR REGION, NO DRAINAGE , DRESSING DRY AND INTACT Neurological: Alert and Oriented x 3, NL Sensation Nutrition: Taking PO's Result Diagrams: 07/08/17 04:38 07/08/17 04:41 Additional Lab and Data: Assess/Plan/Problems-Billing Assessment: Mr. Harris 76 y.o male with PMH significant for DM, CAD, HTN, HLD, BHARATI, chronic back pain, CKD -3 and obesity who presented to the emergency room for low back pain and was found to have severe spinal stenosis. - Patient Problems (1) Back pain Current Visit: Yes Status: Chronic Code(s): M54.9 - DORSALGIA, UNSPECIFIED SNOMED Code(s): 660144263 Comment: - Acute on Chronic - Continue pain medications and muscle relaxers (2) CAD (coronary artery disease) Current Visit: No Status: Chronic Code(s): I25.10 - ATHSCL HEART DISEASE OF [place] CORONARY ARTERY W/O ANG PCTRS SNOMED Code(s): 71303293 Comment: - Stable, denies chest pain - Continue carvedilol (3) CKD (chronic kidney disease) Current Visit: No Status: Chronic Code(s): N18.9 - CHRONIC KIDNEY DISEASE, UNSPECIFIED SNOMED Code(s): 243011640 Comment: - Stage 3, appears to be at baseline (4) Diabetes mellitus Current Visit: No Status: Chronic Code(s): E11.9 - TYPE 2 DIABETES MELLITUS WITHOUT COMPLICATIONS SNOMED Code(s): 75193796 Comment: - Glucose 120-150's - Continue insulin pump (5) Constipation Current Visit: Yes Status: Acute Code(s): K59.00 - CONSTIPATION, UNSPECIFIED SNOMED Code(s): 94243221 Comment: - Resolved - Continue bowel regimen (6) DVT prophylaxis Current Visit: Yes Status: Acute Code(s): VVA0625 - SNOMED Code(s): 081353716 Comment: - SCDs (7) Full code status Current Visit: Yes Status: Acute Code(s): Z78.9 - OTHER SPECIFIED HEALTH STATUS SNOMED Code(s): 835530076 (8) Spinal stenosis Current Visit: Yes Status: Acute Code(s): M48.00 - SPINAL STENOSIS, SITE UNSPECIFIED SNOMED Code(s): 24405641 Comment: - S/P L3-4 decompressive lami, POD #6 - Management per neurosurgery - Pain management consult, input appreciated - Continue pain management, OT/PT, bowel regimen (9) BHARATI (obstructive sleep apnea) Current Visit: No Status: Chronic Code(s): G47.33 - OBSTRUCTIVE SLEEP APNEA (ADULT) (PEDIATRIC) SNOMED Code(s): 66748559 Comment: - Continue CPAP Status and Disposition: r discharge to [facility] TODAY. FOLLOW UP WITH DR. DUKE the week of Aug 02, 2017 DORON REMOVED on 07/19/17 PT EVAL AND TREAT Limit bending and twisting no lifting anything heavier than 5 pounds may shower, may leave surgical site open to air
--- NOTE | 2017-07-13 14:48 | OP ---
DATE OF OPERATION: 07/07/17 - ROOM #334 DATE OF : 44 PRIMARY SURGEON: Dr. Sudeep Anderson. FURNITURE MOVER: SHANTAL Moran ANESTHESIOLOGIST: Darnell Marcano MD ANESTHESIA: General. PRE-OP DIAGNOSIS: Lumbar spinal stenosis, L3-4. POST-OP DIAGNOSIS: Lumbar spinal stenosis, L3-4. OPERATIVE PROCEDURE: Lumbar decompressive laminectomy, L3-4. DESCRIPTION OF PROCEDURE: After satisfactory general anesthesia was obtained, the patient was placed on the operating table in the prone position with the chest supported on the Nico frame and the back slightly flexed. The lumbar region was then clipped, prepped and draped in the sterile manner for lumbar laminectomy and skin incision outlined from L3 to L4. The patient had undergone a previous lumbar decompression at L4-5 and L5-S1. The incision was carried down to the spinous process of L3 and the paraspinal musculature and scar tissue dissected free from the posterior elements. A decompression was then carried out by removing the spinous process of L3 and removing the inferior aspect of the spinous process and inferior aspect of the lamina as well as medial aspect of the facet complex with a combination of the Midas Farhan drill and Kerrison rongeurs. The previously decompressed posterior elements of L4 were identified with the small remaining rim of bone left behind representing the L4 posterior arch identified. The decompression at L3-4 was carried superiorly into the attachment of the ligamentum flavum and it was taken down. The pathology at this level was noted to be a combination of ligamentous thickening as well as bony hypertrophy. The dissection was carried inferiorly and both L4 nerve roots were noted to be free on their course. The patient has significant preoperative radicular pain and the L4 nerve root on the left side was palpated in its entire course and was noted to be free of compression. After assuring adequate hemostasis, the wound was thoroughly irrigated after which a piece of Gelfoam was placed over the laminectomy defect. The drain was placed on the epidural space and tunneled out toward the left side. The fascia was then reapproximated with 0 Vicryl sutures. The subcutaneous tissues were closed with 3-0 Vicryl suture and the skin closed with skin clips. The estimated blood loss was less than 50 cc and the final sponge, padding and needle counts were correct. The patient was taken to the recovery room, extubated and in stable condition. [id number]/[facility] #: [id number] MTDD
--- NOTE | 2017-07-13 15:13 | DS ---
CC: Dr. Anderson; Dr. Amezquita * DATE OF ADMISSION: 07/04/2017. DATE OF DISCHARGE: 07/13/2017. PROVIDER: Loida Arvizu NP. ATTENDING PHYSICIAN: Dr. Yessy Guzman *(dictated by Loida Arvizu NP). PRIMARY DIAGNOSIS: 1. Spinal stenosis. 2. Status post lumbar decompressive laminectomy. SECONDARY DIAGNOSES: 1. Coronary artery disease. 2. Type 2 diabetes. 3. Mixed dyslipidemia. 4. Hypertension. 5. Erectile dysfunction. 6. Obstructive sleep apnea. 7. Chronic back pain. 8. Chronic stage 3 kidney disease. 9. History of DVT following lumbar spinal stenosis surgery. 10. Depression. 11. Restless leg syndrome. 12. Obesity. 13. Osteoarthritis. 14. History of prior laminectomy. 15. Bilateral knee replacements. STUDIES COMPLETED WHILE IN THE HOSPITAL: 1. Venous Doppler, 07/04/2017: There was no evidence of deep vein thrombosis on the left leg. 2. Lumbar MRI, 07/04/2017: Radiologist's impression: There is circumferential enhancing epidural tissue extending from approximately L4 through L5-S1. This is felt to represent postoperative change and scarring. This does not appear to be causing any mass effect on the thecal sac. There is severe spinal stenosis at L3-4 due to facet and ligamentous hypertrophy and broad-based protrusion. 3. CT myelogram, 07/06/2017, which showed stenosis at the L3-4 level. DISCHARGE MEDICATIONS: 1. He will continue on his insulin pump of insulin regular 500 units, U-500 unit concentrated. 2. Folic acid 800 mcg p.o. daily. 3. Fentanyl patch 75 mcg hourly q.72 hours. 4. Aspirin 81 mg p.o. daily. 5. Carvedilol 25 mg p.o. b.i.d. 6. Baclofen 5 mg p.o. t.i.d. 7. Twain-3 fatty acids two caps p.o. daily. 8. Gabapentin 600 mg p.o. daily. 9. Fenofibrate 160 mg p.o. daily. 10. Citalopram 20 mg p.o. daily. 11. Simvastatin two tabs at bedtime. 12. Requip two tabs at bedtime. 13. Pantoprazole two tabs p.o. at bedtime. 14. He can continue MiraLax 17 gm p.o. daily prn. 15. Milk of Magnesia 30 ml p.o. q.6 hours prn. 16. Docusate 100 mg p.o. b.i.d. 17. Flexeril 10 mg p.o. t.i.d. prn muscle spasms. 18. Acetaminophen 650 mg p.o. q.4 hours. 19. Hydralazine 25 mg p.o. t.i.d. 20. Oxycodone 5 mg p.o. q.4 hours prn pain or for severe pain Oxycodone 10 mg p.o. q.4 hours as needed for severe pain. 21. Senna tab two tablets at bedtime as needed for constipation. HISTORY OF PRESENT ILLNESS/HOSPITAL COURSE: Mr. Harris is a 76-year-old male who presented to the emergency room on 07/04/2017 who has a history of chronic pain in his lower back that radiates down to his knees. He presented to the emergency room for severe left leg pain. Prior to his admission on 07/03/2017, the patient was active all morning, clearing ice and plowing. He states after completing the task, he sat is his recliner and that evening he developed severe left leg pain when trying to ambulate to the bathroom, and the pain continued to progress to the point he was unable to ambulate. He also has complained of some left-sided weakness and he was supposed to be in the [facility] on 07/13/2017. The patient noted that he would drag his left leg due to the weakness. While in the hospital, he had lumbar decompressive surgery by Dr. Anderson. He has had continued improvement of his left leg weakness and pain over the past few days. He says daily the pain improves. Today, the patient states that his pain has improved a little bit more since yesterday. He continues to have some residual muscle spasms and left leg pain when standing or ambulating. At this point, [facility] will [facility]. Mr. Harris is stable for discharge home today. Vital signs are as follows: Temperature was 98.4, heart rate 63, respirations 17, O2 saturation was 95 percent, blood pressure 137/54. DISCHARGE PLAN: Mr. Harris will be discharged to [facility] today. Activity is as tolerated. He will need physical therapy and occupational therapy support to regain his strength. He can continue on a consistent carb diet. He is to have his annemarie removed on 07/19/2017. He can have the incision site open to air per neurosurgery. He is to follow-up with Dr. Anderson in one month. The patient is to return to the emergency room with any increased shortness of breath or chest pain. This is a summary of his recent hospital stay. For further details, please see the entire medical record. TIME SPENT: Time spent on this discharge was approximately 60 minutes, greater than half that time was spent with the patient discussing discharge plans and instructions. CONDITION ON DISCHARGE: Stable. LOIDA ARVIZU NP [id number]/[facility] #: [id number] [facility]
== END 2017-07-13 13:55 | DRG 517 ==
LOC: ED 12:27 → MED 20:54 → SSU 07-07 11:47
PROVIDERS: ADMIT Hospitalist; ATTEND Internal Medicine
PROC: 01NB0ZZ Release Lumbar Nerve, Open Approach (ICD-10-PCS; principal; 2017-07-04)
DX: M48.061 Spinal stenosis, lumbar region without neurogenic claudication (principal); E11.22 Type 2 diabetes mellitus with diabetic chronic kidney disease; N18.3 Chronic kidney disease, stage 3 (moderate); G89.29 Other chronic pain; I25.10 Atherosclerotic heart disease of native coronary artery without angina pectoris; E78.2 Mixed hyperlipidemia; I12.9 Hypertensive chronic kidney disease with stage 1 through stage 4 chronic kidney disease, or unspecified chronic kidney disease; N52.9 Male erectile dysfunction, unspecified; G47.33 Obstructive sleep apnea (adult) (pediatric); M54.9 Dorsalgia, unspecified; F32.9 Major depressive disorder, single episode, unspecified; E66.9 Obesity, unspecified; G25.81 Restless legs syndrome; M19.90 Unspecified osteoarthritis, unspecified site; K21.9 Gastro-esophageal reflux disease without esophagitis; Z66 Do not resuscitate; Z96.653 Presence of artificial knee joint, bilateral; R40.2412 Glasgow coma scale score 13-15, at arrival to emergency department; Z96.41 Presence of insulin pump (external) (internal); K59.00 Constipation, unspecified; M54.32 Sciatica, left side; Z68.34 Body mass index [BMI] 34.0-34.9, adult; Z88.5 Allergy status to narcotic agent; Z86.718 Personal history of other venous thrombosis and embolism; Z88.0 Allergy status to penicillin; Z91.048 Other nonmedicinal substance allergy status; Z82.49 Family history of ischemic heart disease and other diseases of the circulatory system; Z82.0 Family history of epilepsy and other diseases of the nervous system; Z87.891 Personal history of nicotine dependence; Z83.3 Family history of diabetes mellitus; Z80.9 Family history of malignant neoplasm, unspecified; Z79.82 Long term (current) use of aspirin; Z79.4 Long term (current) use of insulin
CPT/HCPCS: 20552; 36415; 62304; 71045; 72100; 72131; 72158; 80048; 80053; 81003; 83036; 83605; 83735; 85025; 85610; 85730; 86850; 86900; 86901; 99284; A9270-GY; A9577; J1030; J1644; J2001; J2250; J2405; J2704; J3010; J3490; J7509; Q9965

== ENCOUNTER 2017-08-07 09:45 | Emergency (ER) | payer MEDICARE ==
--- OUTSIDE RECORDS SUMMARY | 2017-08-07 09:55 | XMS REPORT ---
:1940 External Reference #:[id number] Author Organization [facility] Address [address] [address] Phone [phone] Care Team Providers Name Role Phone Raine Price MD Care Team Information Per Diem Unavailable Willis Amezquita MD Primary Care Physician Unavailable Payers Type Date Identification Numbers Payment Provider Subscriber Medicare Primary Effective: Policy Number: Medicare Naty Harris 1989 [id number] PayID: [id number] [address] [place] [address] [place] Part B Effective: Policy Number: [facility] Naty aHrris 2015 [id number] Healthcare PayID: [id number] [address] [place] [address] Medigap Part B Effective: 2011 Policy Number: CDP (Traci) Naty Eucedat [id number] Expires: 2015 PayID: [id number] [address] [address] [place] [address] Problems Date Description Provider Status Onset: 12/11/2010 Type 2 diabetes mellitus Raine Price M.D., FACP Active Onset: 12/11/2010 Low back pain Raine Price M.D., FACP Active Onset: 12/11/2010 Sleep hypoventilation Raine Price M.D., FACP Active Onset: 12/11/2010 Chronic pain Raine Price M.D., FACP Active Onset: 12/11/2010 Depressive disorder Raine Price M.D., FACP Active Onset: 12/11/2010 Benign essential hypertension Raine Price M.D., FACP Active Onset: 10/13/2011 Coronary arteriosclerosis Arti Woods N.P. Active Onset: 11/20/2013 Pure hypercholesterolemia Kenia Davila M.D. Active Onset: 11/20/2013 Essential hypertension Kenia Davila M.D. Active Onset: 11/20/2013 Neurologic disorder associated with Kenia Davila M.D. Active diabetes mellitus Onset: 11/16/2014 Morbid obesity Kenia Davila M.D. Active Onset: 06/21/2009 Obstructive sleep apnea syndrome Betty River DNP, Active RN, IT ADMINISTRATOR-BC Onset: 01/28/2016 Periodic leg movements of sleep Betty River DNP, Active RN, JENNY-BC Onset: 06/05/2016 Dyssomnia Betty River DNP Active RN, IT ADMINISTRATOR-BC Onset: 01/26/2017 Mixed hyperlipidemia Kenia Davila M.D. Active Onset: 01/26/2017 Diabetes mellitus Kenia Davila M.D. Active Onset: 01/26/2017 Right bundle branch block Kenia Davila M.D. Active Family History Date Family Member(s) Problem(s) Comments Mother due to [place] () Mother Diabetes First Daughter [place] First Brother Coronary Artery Disease (CAD) 2 stents Social History Type Date Description Comments Marital Status Lives With Occupation Disabled ETOH Use Denies alcohol use Smoking Patient is a former smoker Quit 30 yrs ago. 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, seasonal snow shoveling, gardening, mowing, lawns Allergies, Adverse Reactions, Alerts Date Description Reaction Status Severity Comments 07/25/2009 Penicillin HIVES active Moderate 07/25/2009 Tape RASH active Mild to Moderate 02/11/2010 Morphine DISALUSIONAL active Moderate 03/14/2013 Dipyridamole active 03/14/2013 Zoloft active 03/14/2013 Spironolactone gynecomastia active 04/17/2013 Metformin active Medications Medication Date Status Form Strength Qnty SIG Indications Ordering Provider Magnesium Citrate 08/02/ Active Solution 1.745GM/3 296ml take 150ml Z48.89 Sudeep 2017 0ML (1/2 Justin, bottle) of M.D. solution by mouth. if no results within 6 hours, take remaining solution. Ropinirole HCL 02/27/ Active Tablets 2mg 285ta take 1 R07.9 Betty 2012 bs tablet River, when DNP, RN, symptoms IT ADMINISTRATOR-BC begin, 2-3 tablets by mouth at bedtime MDD 4 Isosorbide 02/16/ Active Tablets 60mg 90tab 1 po qd 786.05 Raine Mononitrate ER 2012 ER 24HR s Joann Price, FACP Simvastatin 10/06/ Active Tablets 40mg 90tab take 1 Raine 2011 s tablet at Dee, bedtime M.D., FACP Nitrostat 09/29/ Active Tablets 0.4mg 2bott one sl 786.50 Raine 2011 Sub les q5min up Dee, to 3 doses M.D., FACP as needed Citalopram 07/06/ Active Tablets 20mg 90tab take 1 311 Raine Hydrobromide 2011 s tablet by Dee, mouth once M.D., FACP daily Cyclobenzaprine 12/08/ Active Tablets 5mg 30tab take 1 Raine HCL 2010 s tablet by Dee, mouth M.D., FACP daily prn Temazepam 03/07/ Active Capsules 15mg 20cap 1 capsule Raine 2009 s every Dee, night as M.D., FACP needed for sleep Insulin Pump 12/04/ Active Humulin as Raine 2009 directed Joann Price, FACP Folic Acid 10/24/ Active Tablets 400mcg 1 Tablet Raine 2009 Daily Joann Price, FACP Percocet 09/11/ Active Tablets 5-325mg 60tab 1-2 po q4h Raine 2008 s prn Joann Price, FACP Hydralazine HCL / Active Tablets 25mg 270ta 1 by mouth Kenia 0000 bs three Dawes, times a M.D. day Hong Aspirin Ec / Active Tablets 81mg 100ta 1 po qd Unknown Low Dose DR keys Fish Oil / Active daily Unknown 0000 Fenofibrate / Active Tablets 160mg 90tab take 1 Raine 0000 s tablet Dee, daily M.D., FACP Pantoprazole / Active Tablets 40mg 90tab take [address] s tablet Dee, daily M.D., FACP Fentanyl / Active Patches 75mcg/HR topical, Unknown 0000 72HR change every three days Furosemide / Active Tablets 20mg 90tab 2 by mouth Kenia 0000 s every Dawes, morning M.D. Gabapentin / Active Capsules 300mg 2 by mouth Unknown 0000 daily in the morning Glucagon Kit / Active 1mg as needed Unknown 0000 Blood Glucose / Active Unknown Test Strips 0000 Baclofen / Active Tablets 10mg take 1/ Unknown 0000 tab tid Carvedilol / Active Tablets 25mg 1 tab by Unknown 0000 mouth twice a day Allopurinol / Active Tablets 100mg 1 by mouth Unknown 0000 daily Cpap / Active Device Unknown Azithromycin 05/04/ Hx Tablets 250mg 6tabs two tabs 466.0 Raine 2012 - day one, Dee, 06/12/ one daily M.D., FACP 2012 till gone Guaifenesin ac 05/04/ Hx Syrup 100-10mg/ 100cc 1 tsp by 466.0 Raine 2012 - 5ML mouth Dee, 06/12/ every M.D., FACP 2012 night as needed Carvedilol 03/16/ Hx Tablets 12.5mg 270ta 1 1/2 tabs Kenia 2012 - bs by mouth Dawes, 01/26/ twice a M.D. 2016 day Dilt-XR 03/15/ Hx Caps ER 240mg 90cap 1 tab PO q Kenia 2012 - 24HR s day Dawes, 03/16/ M.D. 2012 Flovent HFA 02/16/ Hx Aerosol 44mcg/Act 1unit 2 puffs 466.0 Raine 2012 - s twice Dee, 06/12/ daily for M.D., FACP 2012 10 days Dilt-CD 02/09/ Hx Caps ER 120mg 30cap 1 po qd Kenia 2012 - 24HR s Lola, 03/15/ M.D. 2012 Ventolin HFA 02/09/ Hx Aerosol 108(90Bas 1unit Inhale 2 Kenia 2012 - e) s puffs Dawes, 11/06/ mcg/Act twice a M.D. 2015 day using the spacer Lasix 12/27/ Hx Tablets 20mg 1 po qd Raine 2012 - Dee, 12/27/ M.D., FACP 2013 Furosemide 12/27/ Hx Tablets 40mg 90tab 1 tab by Kenia 2012 - s mouth Dawes, 11/15/ every day M.D. 2014 Fentanyl 05/02/ Hx Patches 75mcg/HR 10uni q72hrs 719.49 Raine 2011 - 72HR ts topically Dee, 11/19/ M.D., FACP 2013 Fentanyl 04/28/ Hx Patches 50mcg/HR 10uni apply one Raine 2011 - 72HR ts patche Dee, 11/19/ every M.D., FACP 2014 72hrs Fentanyl 04/04/ Hx Patches 25mcg/HR 10uni 1 patch 719.49 Raine 2011 - 72HR ts every 72 Dee, 05/02/ hours M.D., FACP 2011 Clobetasol 12/21/ Hx Cream 0.05% 30gm apply to 782.1 Raine Propionate E 2011 - Dee, 03/23/ area every M.D., FACP 2012 day Nifedipine ER 09/29/ Hx Tablets 60mg 90tab 1 by mouth 786.50 Raine 2011 - ER 24HR s every day Dee, 04/04/ M.D., FACP 2011 Requip 09/29/ Hx Tablets 2mg 180ta 2 by mouth 786.50 Raine 2012 - bs at bedtime Dee, 02/27/ M.D., FACP 2012 Gabapentin 09/29/ Hx Capsules 300mg 270ca take 3 250.60 Raine 2011 - ps capsules Dee, 03/23/ by mouth M.D., FACP 2012 at bedtime Citalopram 07/06/ Hx Tablets 20mg 30tab 1 po qd 311 Raine Hydrobromide 2011 - s Dee, 07/21/ M.D., FACP 2013 Atorvastatin 06/09/ Hx Tablets 20mg 90tab take 1 Raine Calcium 2010 - s tablet at Dee, 10/06/ bedtime M.D., FACP 2012 Fenofibrate 06/09/ Hx Tablets 160mg 90tab take 1 Raine 2010 - s tablet Dee, 07/21/ daily M.D., FACP 2012 Fentanyl 12/31/ Hx Patches 100mcg/HR 10uni apply 1 Danette 2010 - 72HR ts topically Varn, N.P. 04/28/ every 2011 3days Ropinirole HCL 12/31/ Hx Tablets 1mg 90tab 1 at 786.50 Raine 2010 - s bedtime Dee, 09/29/ M.D., FACP 2011 Pantoprazole 06/30/ Hx Tablets 40mg 90tab take 1 Raine Sodium 2010 - DR s tablet Dee, 03/23/ daily M.D., FACP 2012 Tricor 06/17/ Hx Tabs 145mg 30tab Take 1 Audelia 2010 - s Tablet Cotton, 06/09/ Daily At M.D. 2010 Bedtime Cymbalta 02/12/ Hx Caps DR 60mg 2 Capsules Raine 2009 - Part Daily Dee, 03/24/ M.D., FACP 2010 Cymbalta 02/12/ Hx Caps DR 60mg 180ca take 2 Raine 2009 - Part ps capsules Dee, 09/29/ by mouth M.D., FACP 2011 once daily Fentanyl 12/04/ Hx Patches 75mcg/HR 10uni apply 1 Raine 2009 - 72HR ts topically Dee, 12/31/ every M.D., FACP 2010 3days Cymbalta 12/04/ Hx Caps DR 120mg 180ca 2 Capsules Raine 2009 - Part ps Daily Dee, 02/12/ M.D., FACP 2009 Duragesic-50 10/24/ Hx Patches 50mcg/HR 10uni apply Raine 2009 - HR ts topically Dee, 12/04/ q3days M.D., FACP 2009 Ambien 10/24/ Hx Tablets 10mg 1 po qhs Raine 2009 - prn sleep Dee, 12/04/ insomnia M.D., FACP 2009 Lyrica 10/24/ Hx Capsules 50mg 60cap 1 by mouth Raine 2009 - s twice a Dee, 10/19/ day M.D., FACP 2015 Novolog 10/24/ Hx Solution 100Unit/M as Raine 2009 - L directed Dee, 12/04/ M.D., FACP 2010 Lantus 10/24/ Hx Solution 100Unit/M Uad Raine 2009 - L Dee, M.D., FACP 2009 Byetta 10 mcg Pen 10/24/ Hx Solution 10mcg/0.0 sc bid Raine 2009 - 4ML Dee, M.D., FACP 2009 Tricor 10/24/ Hx Tablets 48mg 1 Tablet Raine 2009 - At Bedtime Dee, 06/17/ M.D., FACP 2009 Metoclopramide 10/24/ Hx Tablets 10mg 120ta 1 Tablet 4 Raine HCL 2009 - bs Times A Dee, Day M.D., FACP 2012 Lisinopril 10/24/ Hx Tablets 40mg 1 Tablet Raine 2009 - Daily Dee, M.D., FACP 2010 Flexeril 10/24/ Hx Tablets 5mg 1 Tablet Raine 2009 - Daily as Dee, 12/08/ Needed For M.D., FACP 2010 Pain Protonix 10/24/ Hx 40mg 1 Tablet Raine 2009 - Daily Dee, 08/14/ M.D., FACP 2010 Metoprolol 10/24/ Hx Tablets 50mg 180ta 1 tablet Raine Tartrate 2009 - bs twice A Dee, day M.D., FACP 2010 Cymbalta 10/24/ Hx Caps DR 60mg 1 po qd Raine 2009 - Part Dee, M.D., FACP 2009 Vytorin 10/24/ Hx Tablets 10-40mg 30tab take 1 Raine 2009 - s tablet by Dee, 06/09/ mouth M.D., FACP 2010 daily Nifedipine 10/24/ Hx Tablets 30mg 90tab 2 Tablet Raine 2009 - ER 24HR s Daily Dee, M.D., FACP 2012 Metoprolol 05// Hx Tablets 50mg 180ta take 1/2 Raine Tartrate 2009 - bs tablet by Dee, 02/16/ mouth M.D., FACP 2012 twice a day Oxycontin 09/11/ Hx Tablets 40mg 60tab 1 po bid Rich Clarke 2009 - ER 12HR s Jake, 10/24/ M.DMarisela 2009 Oxycodone HCL 07/31/ Hx Tablets 5mg 90tab 1-2 po qid Rihc Clarke 2008 - s prn Jake, 10/24/ M.D. 2009 Requip / Hx Tablets 1mg 30tab 1 tablet Unknown 0000 - s at night 2011 Lasix / Hx Tablets 40mg 90tab 1 po qd Unknown 0000 - s 2012 Potassium / Hx Tablets ? 1 qd Unknown 0000 - 2011 Klor-Con M20 / Hx Tablets 20Meq 180ta 2 tabs by Kenia 0000 - ER bs mouth Dawes, 11/15/ every day M.D. 2014 Methocarbamol / Hx Tablets 750mg 120ta 1 by mouth Unknown 0000 - bs 4 q 6 hrs 01/21/ as needed 2016 Albuterol Sulfate / Hx Unknown 0000 - 2012 Carvedilol / Hx Tablets 12.5mg take 1 Unknown 0000 - tablet by 03/15/ mouth 2012 twice a day Medications Administered in Office Medication Date Status Form Strength Qnty SIG Indications Ordering Provider Inj, 02/14/ Administered Injection Kenia Regadenoson, 0.1 2012 Dawes, MG M.DMarisela Aminophylline 02/14/ Administered Injection Kenia 2013 Joann Davila Technetium TC 02/14/ Administered Injection Kenia 99M Tetrofosmin, 2012 Lola, Per Unit Dose Up M.D. To 40 Millicuries Immunizations CPT Code Status Date Vaccine Lot # [id number] Given 03/18/2012 Fluzone Vaccine [id number] Given 02/04/2012 Hepatitis B Vaccine Adult Dosage [id number] 12391 Given 02/04/2012 Tdap - Tetanus/Diptheria/Acellular Pertussis [id number] 64499 Given 09/30/2011 Hepatitis B Vaccine Adult Dosage [id number] Given 03/24/2011 Afluria Vaccine [id number] 54641 Given 04/08/2010 Influenza Virus 3Yrs & Over 46227 Given 03/07/2010 Zoster (Zostavax) 00969 Given 04/04/2009 Influenza Virus 3Yrs & Over 74953 Given 04/17/2008 Influenza Virus 3Yrs & Over 63774 Given 04/17/2008 Influenza Virus 3Yrs & Over 60499 Given 03/31/2007 Influenza Virus 3Yrs & Over [id number] Given 03/31/2007 Influenza Virus 3Yrs & Over Vital Signs Date Vital Result Comment 08/02/2017 Height 67 inches 5'7" Weight 223.00 lb BP Systolic Sitting 131 mmHg BP Diastolic Sitting 74 mmHg Pain Level 7 BMI (Body Mass Index) 34.9 kg/m2 01/26/2017 Height 67 inches 5'7" Weight 223.00 lb Heart Rate 70 /min BP Systolic Sitting 112 mmHg Lue lg cuff BP Diastolic Sitting 70 mmHg Lue lg cuff BP Systolic Standing 120 mmHg Lue lg cu BP Diastolic Standing 62 mmHg Lue lg cu Respiratory Rate 16 /min BMI (Body Mass Index) 34.9 kg/m2 Ejection Fraction 62% 02/16/13 07/15/2016 Height 67 inches 5'7" Weight 230.00 lb Heart Rate 68 /min BP Systolic Sitting 136 mmHg BP Diastolic Sitting 79 mmHg Respiratory Rate 16 /min O2 % BldC Oximetry 96 % BMI (Body Mass Index) 36.0 kg/m2 06/05/2016 Height 67 inches 5'7" Weight 230.00 lb Heart Rate 66 /min BP Systolic Sitting 132 mmHg BP Diastolic Sitting 64 mmHg Respiratory Rate 16 /min O2 % BldC Oximetry 96 % BMI (Body Mass Index) 36.0 kg/m2 01/28/2016 Height 67 inches 5'7" Weight 235.25 lb Heart Rate 68 /min BP Systolic 124 mmHg BP Diastolic 62 mmHg Respiratory Rate 14 /min O2 % BldC Oximetry 98 % BMI (Body Mass Index) 36.8 kg/m2 11/08/2015 Height 67 inches 5'7" Weight 243.00 lb with shoes Heart Rate 70 /min BP Systolic Sitting 120 mmHg right arm, large cuff BP Diastolic Sitting 62 mmHg right arm, large cuff BP Systolic Standing 116 mmHg right arm, large cuff BP Diastolic Standing 62 mmHg right arm, large cuff Respiratory Rate 16 /min BMI (Body Mass Index) 38.1 kg/m2 Ejection Fraction 62% 02/16/13 11/16/2014 Height 67 inches 5'7" Weight 238.00 lb with shoes Heart Rate 70 /min BP Systolic Sitting 130 mmHg Ra, Lg cuff BP Diastolic Sitting 64 mmHg Ra, Lg cuff BP Systolic Standing 132 mmHg Ra BP Diastolic Standing 68 mmHg Ra Respiratory Rate 18 /min BMI (Body Mass Index) 37.3 kg/m2 11/20/2013 Height 67 inches 5'7" Weight 228.00 lb Heart Rate 68 /min BP Systolic Sitting 146 mmHg right arm, large cuff BP Diastolic Sitting 78 mmHg right arm, large cuff BP Systolic Standing 140 mmHg right arm, large cuff BP Diastolic Standing 78 mmHg right arm, large cuff Respiratory Rate 14 /min BMI (Body Mass Index) 35.7 kg/m2 05/04/2013 Weight 228.75 lb Heart Rate 80 /min BP Systolic 154 mmHg BP Diastolic 62 mmHg Body Temperature 99.8 F O2 % BldC Oximetry 86 % 04/26/2013 Height 67.5 inches 5'7.50" Weight 230.00 lb 3 Lbs increase 03/15/13 Heart Rate 72 /min BP Systolic Sitting 118 mmHg Lf arm, Lg cuff BP Diastolic Sitting 66 mmHg Lf arm, Lg cuff BP Systolic Standing 116 mmHg BP Diastolic Standing 70 mmHg Respiratory Rate 16 /min BMI (Body Mass Index) 35.5 kg/m2 03/23/2013 Weight 228.00 lb Heart Rate 78 /min BP Systolic 120 mmHg BP Diastolic 54 mmHg 02/16/2013 Weight 225.00 lb Heart Rate 80 /min BP Systolic Sitting 160 mmHg BP Diastolic Sitting 70 mmHg 10/13/2012 Weight 230.00 lb Heart Rate 88 /min BP Systolic Sitting 138 mmHg BP Diastolic Sitting 84 mmHg 08/04/2012 Height 65 inches 5'5" Weight 232.00 lb Heart Rate 80 /min BP Systolic Sitting 162 mmHg BP Diastolic Sitting 70 mmHg BMI (Body Mass Index) 38.6 kg/m2 07/21/2012 Height 65 inches 5'5" Weight 233.75 lb Heart Rate 84 /min BP Systolic Sitting 144 mmHg BP Diastolic Sitting 64 mmHg Body Temperature 98.8 F BMI (Body Mass Index) 38.9 kg/m2 06/22/2012 Height 65 inches 5'5" Weight 235.00 lb Heart Rate 70 /min BP Systolic Sitting 132 mmHg BP Diastolic Sitting 80 mmHg O2 % BldC Oximetry 96 % BMI (Body Mass Index) 39.1 kg/m2 04/04/2012 Height 65 inches 5'5" Weight 232.25 lb Heart Rate 72 /min BP Systolic Sitting 158 mmHg BP Diastolic Sitting 80 mmHg BMI (Body Mass Index) 38.6 kg/m2 02/04/2012 Height 65 inches 5'5" Weight 233.00 lb Heart Rate 60 /min BP Systolic Sitting 138 mmHg BP Diastolic Sitting 60 mmHg BMI (Body Mass Index) 38.8 kg/m2 12/22/2011 Height 65 inches 5'5" Weight 233.00 lb Heart Rate 78 /min BP Systolic Sitting 138 mmHg BP Diastolic Sitting 60 mmHg Body Temperature 98.9 F BMI (Body Mass Index) 38.8 kg/m2 11/04/2011 Height 65 inches 5'5" Weight 234.50 lb Heart Rate 68 /min BP Systolic Sitting 142 mmHg BP Diastolic Sitting 68 mmHg BMI (Body Mass Index) 39.0 kg/m2 10/13/2011 Height 65 inches 5'5" Weight 239.12 lb Heart Rate 88 /min regular BP Systolic Sitting 168 mmHg BP Diastolic Sitting 70 mmHg BMI (Body Mass Index) 39.8 kg/m2 09/30/2011 Height 65 inches 5'5" Weight 233.00 lb Heart Rate 76 /min BP Systolic Sitting 132 mmHg BP Diastolic Sitting 66 mmHg BMI (Body Mass Index) 38.8 kg/m2 08/11/2011 Height 65 inches 5'5" Weight 236.00 lb Heart Rate 68 /min BP Systolic Sitting 142 mmHg BP Diastolic Sitting 80 mmHg BMI (Body Mass Index) 39.3 kg/m2 07/06/2011 Height 65 inches 5'5" Weight 231.00 lb Heart Rate 64 /min BP Systolic Sitting 120 mmHg BP Diastolic Sitting 66 mmHg BMI (Body Mass Index) 38.4 kg/m2 03/24/2011 Height 65 inches 5'5" Weight 231.00 lb Heart Rate 78 /min BP Systolic Sitting 154 mmHg BP Diastolic Sitting 68 mmHg BMI (Body Mass Index) 38.4 kg/m2 12/31/2010 Height 65 inches 5'5" Weight 225.00 lb Heart Rate 78 /min BP Systolic Sitting 138 mmHg BP Diastolic Sitting 88 mmHg BMI (Body Mass Index) 37.4 kg/m2 12/11/2010 Height 65 inches 5'5" Weight 229.00 lb Heart Rate 74 /min BP Systolic Sitting 110 mmHg l BP Diastolic Sitting 72 mmHg l BMI (Body Mass Index) 38.1 kg/m2 08/14/2010 Weight 228.00 lb Heart Rate 78 /min BP Systolic 130 mmHg BP Diastolic 80 mmHg 04/08/2010 Weight 229.12 lb Heart Rate 78 /min BP Systolic 130 mmHg BP Diastolic 62 mmHg Results Test Date Test Result H/L Range Note Lipid Profile (Trig/Chol/HDL) 04/14/2013 Triglycerides 205 mg/dL High 40- 200 Cholesterol 142 mg/dL Less than 200 HDL Cholesterol 38 mg/dL Low 40-60 1 Cholesterol/HDL Ratio 3.7 Average 1-4.44 LDL Cholesterol 63.0 Less Than 100 2 Comp Metabolic Panel 04/14/2013 Sodium 140 mmol/L 133-145 Potassium 4.3 mmol/L 3.5-5.0 Chloride 103 mmol/L 101-111 Co2 Carbon Dioxide 31.0 mmol/L 22-32 Anion Gap 6.0 mmol/L 2-11 Glucose 152 mg/dL High 70-100 Blood Urea Nitrogen 31 mg/dL High 6-24 Creatinine 1.60 mg/dL High 0.50-1.40 BUN/Creatinine Ratio 19.4 8-20 Calcium 8.8 mg/dL 8.1-9.9 Total Protein 6.6 g/dL 6.2-8.1 Albumin 3.8 g/dL 3.2-5.2 Globulin 2.8 g/dL 2-4 Albumin/Globulin Ratio 1.4 1-3 Total Bilirubin 0.6 mg/dL 0.4-1.5 Alkaline Phosphatase 46 U/L 30-110 Alt 21 U/L 14-54 Ast 27 U/L 12-42 Egfr Non- 42.9 >60 Egfr 55.2 >60 3 Laboratory test 04/14/2013 Hemoglobin A1c 8.6 % High Less than 6.0 4 finding Urine Microalbumin 03/23/2013 Ur Microalbumin (mg/L) 5.0 mg/L 5 Random Urine Creatinine 26.4 mg/dL Urine Microalbumin/Creatinine 18.9 Less Than 31 Laboratory test finding 02/09/2013 Hemoglobin A1c 7.9 % High Less than 6.0 6 Urine Culture And 02/09/2013 Urine Culture (SEE NOTE) 7 Sensitivities Urinalysis 09/18/2012 Urine Color Yellow Urine Appearance Clear Urine Specific Greenback 1.022 1.010-1.030 Urine Esterase Negative Negative Urine Nitrate Negative Negative Urine Urobilinogen Negative E.U./dL Negative Urine Protein 1+ mg/dL Negative Urine pH 5.5 5-9 Urine Blood Negative Negative Urine Ketones Negative mg/dL Negative Urine Bilirubin Negative Negative Urine Glucose Negative mg/dL Negative Urine Microscopic 09/18/2012 Urine WBC 1+ (<3 /hpf) None Seen Urine RBC 1+ (<3 /hpf) None Seen CBC Auto Diff 09/18/2012 White Blood Count 6.4 10^3/uL 4.8-10.8 Red Blood Count 4.12 10^6/uL 4.0-5.4 Hemoglobin 12.2 g/dL Low 14.0-18.0 Hematocrit 36 % Low 42-52 Mean Corpuscular Volume 88 fL 80-94 Mean Corpuscular Hemoglobin 30 pg 27-31 Mean Corpuscular HGB Conc 34 g/dL 31-36 Red Cell Distribution Width 14 % 10.5-15 Platelet Count 178 10^3/uL 150-450 Mean Platelet Volume 10 um3 7.4-10.4 Abs Neutrophils 4.1 10^3/uL 1.5-7.7 Abs Lymphocytes 1.6 10^3/uL 1.0-4.8 Abs Monocytes 0.6 10^3/uL 0-0.8 Abs Eosinophils 0 10^3/uL 0-0.6 Abs Basophils 0 10^3/uL 0-0.2 Abs Nucleated RBC 0 10^3/uL Granulocyte % 63.9 % 38-83 Lymphocyte % 25.4 % 25-47 Monocyte % 9.9 % High 1-9 Eosinophil % 0.5 % 0-6 Basophil % 0.3 % 0-2 Nucleated Red Blood Cells % 0 Comp Metabolic Panel 09/18/2012 Sodium 141 mmol/L 133-145 Potassium 3.5 mmol/L 3.5-5.0 Chloride 110 mmol/L 101-111 Co2 Carbon Dioxide 21.0 mmol/L Low 22-32 Anion Gap 10.0 mmol/L 2-11 Glucose 104 mg/dL High 70-100 Blood Urea Nitrogen 26 mg/dL High 6-24 Creatinine 1.50 mg/dL High 0.50-1.40 BUN/Creatinine Ratio 17.3 8-20 Calcium 8.3 mg/dL 8.1-9.9 Total Protein 6.9 g/dL 6.2-8.1 Albumin 3.4 g/dL 3.2-5.2 Globulin 3.5 g/dL 2-4 Albumin/Globulin Ratio 1.0 1-3 Total Bilirubin 0.6 mg/dL 0.4-1.5 Alkaline Phosphatase 53 U/L 30-110 Alt 24 U/L 14-54 Ast 42 U/L 12-42 Egfr Non- 46.3 >60 Egfr 59.5 >60 8 Laboratory test finding 09/18/2012 Lipase 43 U/L 22-51 Troponin I 0 ng/mL 0-0.06 9 C Reactive Protein 1.2 mg/dL High Less than 0.5 Laboratory test 07/27/2012 Unconjugated (Free) <0.07 ng/mL <0.07 10 finding Estriol Testosterone 137.4 ng/dL Low 175-781 Laboratory test finding 06/22/2012 B Type Natriuretic Peptide 30.0 pg/mL 0-100 Comp Metabolic Panel 06/22/2012 Sodium 142 mmol/L 133-145 Potassium 4.9 mmol/L 3.5-5.0 Chloride 104 mmol/L 101-111 Co2 Carbon Dioxide 30.0 mmol/L 22-32 Anion Gap 8.0 mmol/L 2-11 Glucose 187 mg/dL High 70-100 Blood Urea Nitrogen 29 mg/dL High 6-24 Creatinine 1.70 mg/dL High 0.50-1.40 BUN/Creatinine Ratio 17.1 8-20 Calcium 9.9 mg/dL 8.1-9.9 Total Protein 7.1 g/dL 6.2-8.1 Albumin 4.1 g/dL 3.2-5.2 Globulin 3.0 g/dL 2-4 Albumin/Globulin Ratio 1.4 1-3 Total Bilirubin 0.8 mg/dL 0.4-1.5 Alkaline Phosphatase 63 U/L 30-110 Alt 24 U/L 14-54 Ast 27 U/L 12-42 Egfr Non- 40.2 >60 Egfr 51.7 >60 11 CBC With Manual Diff 06/22/2012 White Blood Count 7.4 10^3/uL 4.8-10.8 Red Blood Count 4.22 10^6/uL 4.0-5.4 Hemoglobin 12.4 g/dL Low 14.0-18.0 Hematocrit 37 % Low 42-52 Mean Corpuscular Volume 87 fL 80-94 Mean Corpuscular Hemoglobin 29 pg 27-31 Mean Corpuscular HGB Conc 34 g/dL 31-36 Red Cell Distribution Width 14 % 10.5-15 Platelet Count 188 10^3/uL 150-450 Mean Platelet Volume 11 um3 High 7.4-10.4 Abs Neutrophils 3.3 10^3/uL 1.5-7.7 Abs Lymphocytes 3.4 10^3/uL 1.0-4.8 Abs Monocytes 0.5 10^3/uL 0-0.8 Abs Eosinophils 0.1 10^3/uL 0-0.6 Abs Basophils 0 10^3/uL 0-0.2 Abs Nucleated RBC 0 10^3/uL Neutrophil % 51.0 % 38-83 Band % 0 % 0-8 Lymphocytes % 46.0 % 25-47 Monocytes % 2.0 % 0-13 Eosinophils % 1.0 % 0-6 Basophil % 0 % 0-2 Reactive Lymph % 0 % 0-6 Metamyelocytes % 0 % 0-2 Myelocytes % 0 % 0-1 Promyelocytes % 0 % Blast % 0 % RBC Morphology Normal Normal Laboratory test finding 06/22/2012 Hemoglobin A1c 8.3 High 5-7 Laboratory test finding 02/03/2012 Hemoglobin A1c 7.3 % High Less Than 6.0 12 Lipid Panel 02/03/2012 Triglyceride 146 mg/dL 40-200 Cholesterol 159 mg/dL Less Than 200 13 High Density Lipoprotein 45 mg/dL 40-60 14 Cholesterol/HDL Ratio 3.53 AVERAGE 1-4.97 Low Density Lipoprotein 85 mg/dL Less Than 100 15 CMP Panel 02/03/2012 Sodium 141 mmol/L 135-145 Potassium 5.1 mmol/L High 3.5-5.0 Chloride 106 mmol/L 101-111 Co2 (Carbon Dioxide) 29.0 mmol/L 22-32 Anion Gap 6.0 mmol/L 2-11 16 Glucose 80 mg/dL 70-100 BUN 28 mg/dL High 6-24 Creatinine 1.6 mg/dL High 0.50-1.40 One Over Creatinine 0.62 BUN/Creatinine Ratio 17.5 8-20 Calcium 9.6 mg/dL 8.1-9.9 Total Protein 7.3 GM/DL 6.2-8.1 Albumin 4.0 GM/DL 3.2-5.2 Globulin 3.3 GM/DL 2-4 Albumin/Globulin Ratio 1.2 1-3 Bilirubin Total 0.6 mg/dL 0.4-1.5 17 Alkaline Phosphatase 62 U/L 39-117 Alt (SGPT) 23 U/L 17-63 Ast (Sgot) 35 U/L 12-42 eGFR Non- 43.1 > 60 eGFR 55.4 > 60 18 Urine Microalbumin Random 02/03/2012 Microalbumin (MG/L) 6.0 mg/L Urine Creatinine 19.5 mg/dL Hrary Alb/Creatinine Ratio 30.8 UG/MG Less Than 30 19 Laboratory test 12/22/2011 Surgical Pathology <SEE 20 finding NOTE> Basic Metabolic 12/09/2011 Sodium 139 mmol/L 135-145 Panel Potassium 4.6 mmol/L 3.5-5.0 Chloride 103 mmol/L 101-111 Co2 (Carbon Dioxide) 28.0 mmol/L 22-32 Anion Gap 8.0 mmol/L 2-11 21 Glucose 141 mg/dL High 70-100 BUN 22 mg/dL 6-24 Creatinine 1.8 mg/dL High 0.50-1.40 One Over Creatinine 0.55 BUN/Creatinine Ratio 12.2 8-20 Calcium 9.0 mg/dL 8.1-9.9 eGFR Non- 37.6 > 60 eGFR 48.4 > 60 22 Laboratory test finding 11/04/2011 Hemoglobin A1c 7.5 High 5-7 Comp Metabolic Panel 09/23/2011 Sodium 135 mmol/L 135-145 Potassium 4.5 mmol/L 3.5-5.0 Chloride 103 mmol/L 101-111 Co2 (Carbon Dioxide) 23.0 mmol/L 22-32 Anion Gap 9.0 mmol/L 2-11 23 Glucose 248 mg/dL High 70-100 BUN 28 mg/dL High 6-24 Creatinine 1.2 mg/dL 0.50-1.40 One Over Creatinine 0.83 BUN/Creatinine Ratio 23.3 High 8-20 Calcium 8.9 mg/dL 8.1-9.9 Total Protein 7.4 GM/DL 6.2-8.1 Albumin 3.9 GM/DL 3.2-5.2 Globulin 3.5 GM/DL 2-4 Albumin/Globulin Ratio 1.1 1-3 Bilirubin Total 0.6 mg/dL 0.4-1.5 24 Alkaline Phosphatase 60 U/L 39-117 Alt (SGPT) 25 U/L 17-63 Ast (Sgot) 33 U/L 12-42 eGFR Non- 60.0 > 60 eGFR 77.2 > 60 25 Laboratory test finding 09/23/2011 Magnesium 2.0 mg/dL 1.7-2.6 Lipase 36 U/L 22-51 Troponin-I 0.01 NG/ML 0-0.06 26 CBC Auto Diff 09/23/2011 White Blood Count 6.1 CUMM 4.8-10.8 Red Cell Count 4.10 CUMM Low 4.6-6.2 Hemoglobin 12.6 g/dL Low 14.0-18.0 Hematocrit 36 % Low 42-52 Mean Corpuscular Volume 87 um3 80-94 Mean Corpuscular Hemoglob 31 pg 27-31 Mean Corpuscular HGB Cone 35 g/dL 32-36 Redcell Distribution WDTH 14 % 10.5-15 Platelet Count 193 CUMM 150-450 Mean Platelet Volume 10.1 um3 7.4-10.4 Gran % 51.3 % 38-83 Lymph % 40.5 % 25-47 Mononuclear % 5.8 % 1-9 Eosinophil % 1.3 % 0-6 Basophil % 1.1 % 0-2 Abs Lymphs 2.5 1.0-4.8 Abs Mononuclear 0.4 0-0.8 Absolute Neutrophil Count 3.1 1.5-7.7 Abs Eosinophils 0.1 0-0.6 Abs Basophils 0.1 0-0.2 Protime 09/23/2011 Inr 0.82 Low 0.88-1.13 27 Protime 9.7 SEC Low 10.3-13.5 28 Laboratory test finding 09/23/2011 PTT (Aptt) 24.1 SEC Low 25.1-38.5 BNP Evaluatr 14.0 pg/mL 0-100 PTH Intact, Inc Total Calcium 09/16/2011 PTH Intact 4.0 PMOL/L 1.3-9.3 Calcium For Pthi 8.9 mg/dL 8.1-9.9 29 Comp Metabolic Panel 09/16/2011 Sodium 138 mmol/L 135-145 Potassium 4.1 mmol/L 3.5-5.0 Chloride 105 mmol/L 101-111 Co2 (Carbon Dioxide) 28.0 mmol/L 22-32 Anion Gap 5.0 mmol/L 2-11 30 Glucose 107 mg/dL High 70-100 BUN 22 mg/dL 6-24 Creatinine 1.3 mg/dL 0.50-1.40 One Over Creatinine 0.76 BUN/Creatinine Ratio 16.9 8-20 Calcium 8.9 mg/dL 8.1-9.9 Total Protein 7.1 GM/DL 6.2-8.1 Albumin 3.9 GM/DL 3.2-5.2 Globulin 3.2 GM/DL 2-4 Albumin/Globulin Ratio 1.2 1-3 Bilirubin Total 0.8 mg/dL 0.4-1.5 31 Alkaline Phosphatase 53 U/L 39-117 Alt (SGPT) 22 U/L 17-63 Ast (Sgot) 28 U/L 12-42 eGFR Non- 54.7 > 60 eGFR 70.4 > 60 32 CBC Auto Diff 09/16/2011 White Blood Count 6.8 CUMM 4.8-10.8 Red Cell Count 4.11 CUMM Low 4.6-6.2 Hemoglobin 12.2 g/dL Low 14.0-18.0 Hematocrit 36 % Low 42-52 Mean Corpuscular Volume 88 um3 80-94 Mean Corpuscular Hemoglob 30 pg 27-31 Mean Corpuscular HGB Cone 34 g/dL 32-36 Redcell Distribution WDTH 13 % 10.5-15 Platelet Count 158 CUMM 150-450 Mean Platelet Volume 9.6 um3 7.4-10.4 Manual Differential 09/16/2011 Polysegmented Neutrophil 33 % Low 38-83 Band Neutrophil 1 % 0-8 Lymphocyte 56 % High 25-47 Monocyte 8 % 0-13 Atypical Lymph 2 % 0-6 Absolute Neutrophil Count 2.3 RBC Morphology NORMAL Creatinine Clearance 09/16/2011 Creatinine Random Urine 103.8 mg/dL Creat Clearance 105 mL/min 80-125 Hours Of Collection 24 HR 24- Urine Volume Measurement 1900 ML Total Protein 24HR Urine 09/16/2011 Total Protein Random Urine 16 mg/dL Urine Total Protein/24HR 304 MG/24HR High 50-100 Lipid Profile (Trig/Chol/HDL) 09/16/2011 Triglyceride 225 mg/dL High 40- 200 Cholesterol 159 mg/dL Less Than 200 33 High Density Lipoprotein 35 mg/dL Low 40-60 34 Cholesterol/HDL Ratio 4.54 AVERAGE 1-4.97 Low Density Lipoprotein 79 mg/dL Less Than 100 35 Liver Function Panel 09/16/2011 Total Protein 7.0 GM/DL 6.2-8.1 Albumin 3.8 GM/DL 3.2-5.2 Globulin 3.2 GM/DL 2-4 Albumin/Globulin Ratio 1.2 1-3 Bilirubin Total 0.8 mg/dL 0.4-1.5 36 Bilirubin Direct 0.2 mg/dL 0.1-0.5 Indirect Bilirubin 0.6 mg/dL 0.3-1.0 37 Alkaline Phosphatase 57 U/L 39-117 Alt (SGPT) 24 U/L 17-63 Ast (Sgot) 27 U/L 12-42 Laboratory test finding 06/19/2011 Hemoglobin A1c 7.9 % High Less Than 6.0 38 Comp Metabolic Panel 04/24/2011 Sodium 139 mmol/L 135-145 Potassium 4.2 mmol/L 3.5-5.0 Chloride 105 mmol/L 101-111 Co2 (Carbon Dioxide) 28.0 mmol/L 22-32 Anion Gap 6.0 mmol/L 2-11 39 Glucose 163 mg/dL High 70-100 BUN 22 mg/dL 6-24 Creatinine 1.3 mg/dL 0.50-1.40 One Over Creatinine 0.76 BUN/Creatinine Ratio 16.9 8-20 Calcium 9.1 mg/dL 8.1-9.9 Total Protein 6.9 GM/DL 6.2-8.1 Albumin 3.9 GM/DL 3.2-5.2 Globulin 3.0 GM/DL 2-4 Albumin/Globulin Ratio 1.3 1-3 Bilirubin Total 0.8 mg/dL 0.4-1.5 40 Alkaline Phosphatase 53 U/L 39-117 Alt (SGPT) 25 U/L 17-63 Ast (Sgot) 26 U/L 12-42 eGFR Non- 54.9 > 60 eGFR 70.6 > 60 41 Lipid Profile (Trig/Chol/HDL) 04/24/2011 Triglyceride 157 mg/dL 40-200 Cholesterol 123 mg/dL Less Than 200 42 High Density Lipoprotein 37 mg/dL Low 40-60 43 Cholesterol/HDL Ratio 3.32 AVERAGE 1-4.97 Low Density Lipoprotein 55 mg/dL Less Than 100 44 Liver Function Panel 04/24/2011 Bilirubin Direct 0.1 mg/dL 0.1-0.5 Indirect Bilirubin 0.7 mg/dL 0.3-1.0 45 Creatinine Clearance 04/24/2011 Creatinine Random Urine 96.7 mg/dL Creat Clearance 111 mL/min 80-125 Hours Of Collection 24 HR 24- Urine Volume Measurement 2150 ML Total Protein 24HR Urine 04/24/2011 Total Protein Random Urine 9 mg/dL Urine Total Protein/24HR 193 MG/24HR High 50-100 Laboratory test finding 03/18/2011 Hemoglobin A1c 8.1 % High Less Than 6.0 46 Laboratory test finding 12/10/2010 Glucose 210 mg/dL High 70-100 Hemoglobin A1c 7.4 % High Less Than 6.0 47 Laboratory test 04/04/2009 Hemoglobin A1c 7.9 % High Less Than 6.0 48 finding Laboratory test 05/03/2008 Hemoglobin A1c 7.7 % High <6.0 49 finding Laboratory test 04/27/2008 Troponin-I (TnI) 0.14 NG/ML High 0-0.06 50, 51 finding Basic Metabolic 04/27/2008 Sodium 142 mmol/L 135-145 Panel Potassium 4.5 mmol/L 3.5-5.0 Chloride 115 mmol/L High 101-111 Co2 (Carbon Dioxide) 25.0 mmol/L 22-32 Anion Gap 2.0 mmol/L 2-11 52 Glucose 466 mg/dL High 70-100 53 BUN 35 mg/dL High 6-24 Creatinine 2.04 mg/dL High 0.50-1.40 One Over Creatinine 0.40 BUN/Creatinine Ratio 17.2 8-20 Calcium 7.1 mg/dL Low 8.1-9.9 54 Laboratory test finding 04/27/2008 Calcium Ionized 4.23 mg/dL Low 4.65- 5.28 Phosphorus 3.6 mg/dL 2.4-4.7 Magnesium 2.0 mg/dL 1.7-2.6 CKMB 04/27/2008 CKMB In NG/ML 3.2 NG/ML 0.3-4.0 CK For CKMB 580 U/L High 0-200 % CKMB 1 %MB 0-9 55 Basic Metabolic Panel 04/27/2008 Sodium 137 mmol/L 135-145 56 Potassium 5.5 mmol/L High 3.5-5.0 56 Chloride 110 mmol/L 101-111 56 Co2 (Carbon Dioxide) 24.0 mmol/L 22-32 56 Anion Gap 3.0 mmol/L 2-11 56, 57 Glucose 264 mg/dL High 70-100 56, 58 BUN 36 mg/dL High 6-24 56 Creatinine 2.40 mg/dL High 0.50-1.40 56 One Over Creatinine 0.40 56 BUN/Creatinine Ratio 15.0 8-20 56 Calcium 7.7 mg/dL Low 8.1-9.9 56, 59 Laboratory test finding 04/27/2008 Calcium Ionized 3.75 mg/dL Low 4.65- 5.28 56 Phosphorus 3.8 mg/dL 2.4-4.7 56 Magnesium 2.3 mg/dL 1.7-2.6 56 CKMB 04/27/2008 CKMB In NG/ML 4.1 NG/ML High 0.3-4.0 56 CK For CKMB 664 U/L High 0-200 56 % CKMB 1 %MB 0-9 56, 60 Protime Stat 04/26/2008 Protime 12.2 10.9-13.3 61 Inr 1.02 61, 62 Laboratory test finding 04/26/2008 PTT (Aptt) Stat 20.3 20.1-28.2 61, 63 Basic Metabolic Panel 04/26/2008 Sodium 138 mmol/L 135-145 Potassium 6.8 mmol/L High 3.5-5.0 64 Chloride 109 mmol/L 101-111 Co2 (Carbon Dioxide) 24.0 mmol/L 22-32 Anion Gap 5.0 mmol/L 2-11 65 Glucose 205 mg/dL High 70-100 66 BUN 34 mg/dL High 6-24 Creatinine 2.21 mg/dL High 0.50-1.40 One Over Creatinine 0.40 BUN/Creatinine Ratio 15.4 8-20 Calcium 8.1 mg/dL 8.1-9.9 67 CBC With Electronic Diff 04/26/2008 White Blood Count 9.9 CUMM 4.8-10.8 Red Cell Count 3.08 CUMM Low 4.6-6.2 Hemoglobin 9.1 g/dL Low 14.0-18.0 Hematocrit 27 % Low 42-52 Mean Corpuscular Volume 87 um3 80-94 Mean Corpuscular Hemoglob 30 pg 27-31 Mean Corpuscular HGB Cone 34 g/dL 32-36 Redcell Distribution WDTH 14 % 10.5-15 Platelet Count 146 CUMM Low 150-450 Mean Platelet Volume 9.1 um3 7.4-10.4 Gran % 76.8 % 38-83 Lymph % 16.8 % Low 20-45 Mononuclear % 6.1 % 1-9 Eosinophil % 0.1 % 0-6 Basophil % 0.2 % 0-2 Abs Lymphs 1.7 1.0-4.8 Abs Mononuclear 0.6 0-0.8 Absolute Neutrophil Count 7.6 1.5-7.7 Abs Eosinophils 0 0-0.6 Abs Basophils 0 0-0.2 68 Laboratory test finding 04/26/2008 Troponin-I (TnI) 0.04 NG/ML 0-0.06 69 Basic Metabolic Panel 04/26/2008 Sodium 137 mmol/L 135-145 Potassium 5.9 mmol/L High 3.5-5.0 Chloride 108 mmol/L 101-111 Co2 (Carbon Dioxide) 23.0 mmol/L 22-32 Anion Gap 6.0 mmol/L 2-11 70 Glucose 205 mg/dL High 70-100 71 BUN 35 mg/dL High 6-24 Creatinine 2.17 mg/dL High 0.50-1.40 One Over Creatinine 0.40 BUN/Creatinine Ratio 16.1 8-20 Calcium 7.9 mg/dL Low 8.1-9.9 72 Laboratory test finding 04/26/2008 Calcium Ionized 4.31 mg/dL Low 4.65- 5.28 73 Phosphorus 3.5 mg/dL 2.4-4.7 73 Magnesium 1.6 mg/dL Low 1.7-2.6 73 Basic Metabolic Panel 04/26/2008 Sodium 137 mmol/L 135-145 73 Potassium 6.4 mmol/L High 3.5-5.0 73 Chloride 109 mmol/L 101-111 73 Co2 (Carbon Dioxide) 24.0 mmol/L 22-32 73 Anion Gap 4.0 mmol/L 2-11 73, 74 Glucose 230 mg/dL High 70-100 73, 75 BUN 35 mg/dL High 6-24 73 Creatinine 2.26 mg/dL High 0.50-1.40 73 One Over Creatinine 0.40 73 BUN/Creatinine Ratio 15.5 8-20 73 Calcium 7.9 mg/dL Low 8.1-9.9 73, 76 Basic Metabolic Panel 04/19/2008 Sodium 137 mmol/L 135-145 Potassium 4.7 mmol/L 3.5-5.0 Chloride 106 mmol/L 101-111 Co2 (Carbon Dioxide) 27.0 mmol/L 22-32 Anion Gap 4.0 mmol/L 2-11 77 Glucose 178 mg/dL High 70-100 78 BUN 22 mg/dL 6-24 Creatinine 1.30 mg/dL 0.50-1.40 One Over Creatinine 0.70 BUN/Creatinine Ratio 16.9 8-20 Calcium 9.1 mg/dL 8.1-9.9 79 Type And Screen 04/19/2008 Patient Blood Type A POSITIVE Antibody Screen NEGATIVE Specimen Discard Date 05/03/08 80 CBC With Electronic Diff 04/19/2008 White Blood Count 6.3 CUMM 4.8-10.8 Red Cell Count 4.00 CUMM Low 4.6-6.2 Hemoglobin 11.8 g/dL Low 14.0-18.0 Hematocrit 35 % Low 42-52 Mean Corpuscular Volume 86 um3 80-94 Mean Corpuscular Hemoglob 29 pg 27-31 Mean Corpuscular HGB Cone 34 g/dL 32-36 Redcell Distribution WDTH 14 % 10.5-15 Platelet Count 189 CUMM 150-450 Mean Platelet Volume 10.2 um3 7.4-10.4 Gran % 49.8 % 38-83 Lymph % 40.7 % 20-45 Mononuclear % 8.0 % 1-9 Eosinophil % 1.2 % 0-6 Basophil % 0.3 % 0-2 Abs Lymphs 2.6 1.0-4.8 Abs Mononuclear 0.5 0-0.8 Absolute Neutrophil Count 3.1 1.5-7.7 Abs Eosinophils 0.1 0-0.6 Abs Basophils 0 0-0.2 Laboratory test finding 04/19/2008 PTT (Aptt) 19.9 Low 20.1-28.2 81 Protime 04/19/2008 Protime 11.3 10.9-13.3 Inr 0.87 82 1 HDL Interpretation: Undesirable: High Risk: Less than 40 mg/dL Desirable: Low Risk: Greater than 60 mg/dL 2 LDL Interpretation: Low Risk Optimal Level: LDL Less than 100 mg/dL Near or Above Optimal: LDL 100-129 mg/dL Borderline High Risk: LDL 130-159 mg/dL High Risk: LDL 160-189 mg/dL Very High Risk: LDL Greater than 189 mg/dL 3 Because ethnic data is not always readily available, this report includes an eGFR for both -Americans and non- Americans. The National Kidney Disease Education Program (NKDEP) does not endorse the use of the MDRD equation for patients that are not between the ages of 18 and 70, are , have extremes of body size, muscle mass, or nutritional status, or are non- or non-. According to the National Kidney Foundation, irrespective of diagnosis, the stage of the disease is based on the level of kidney function: Stage Description GFR(mL/min/1.73 m(2)) 1 Kidney damage with normal or decreased GFR 90 2 Kidney damage with mild decrease in GFR 60-89 3 Moderate decrease in GFR 30-59 4 Severe decrease in GFR 15-29 5 Kidney failure <15 (or dialysis) 4 Therapeutic target for the treatment of diabetes Mellitus patients is <7% HBA1C, and in selective patients <6.0%.Please refer to [place] [employer] Diabetic care guidelines for further information. 5 Microalbuminuria in a random sample is defined as: Microalbumin/Creatinine ratio of 30-299 ug/mg. 6 Therapeutic target for the treatment of diabetes Mellitus patients is <7% HBA1C, and in selective patients <6.0%.Please refer to [place] [employer] Diabetic care guidelines for further information. 7 RUN DATE: 02/11/13 [facility] LAB LIVE PAGE 1 RUN TIME: [address] [place], [place] [address] Specimen Inquiry Name: NATY HARRIS Natalie : [address]: Kenia Davila MD Acct: [id number] Unit: [id number] AGE: 72 Location: [facility] Re/22/13 SEX: M Status: REG REF SPEC: [id number] HAYDEN: 02/09/[address]: Kenia Davila MD REQ: [id number] RECD: 02/09/13 STATUS: COMP ROMAHR DR: Raine Price MD _ SOURCE: URINE SPDESC: ORDERED: Urine Culture QUERIES: Urine Source: Clean Catch Procedure Result Verified Site Urine Culture Final 02/11/13- 1034 ML No Growth Day 2 (<1,000 CFU/mL) END OF REPORT * ML=Testing performed at Main Lab DEPARTMENT OF PATHOLOGY, [address] [place] [address] Robin Carrillo M.D. Director [facility] Permit #[id number] 8 Because ethnic data is not always readily available, this report includes an eGFR for both -Americans and non- Americans. The National Kidney Disease Education Program (NKDEP) does not endorse the use of the MDRD equation for patients that are not between the ages of 18 and 70, are , have extremes of body size, muscle mass, or nutritional status, or are non- or non-. According to the National Kidney Foundation, irrespective of diagnosis, the stage of the disease is based on the level of kidney function: Stage Description GFR(mL/min/1.73 m(2)) 1 Kidney damage with normal or decreased GFR 90 2 Kidney damage with mild decrease in GFR 60-89 3 Moderate decrease in GFR 30-59 4 Severe decrease in GFR 15-29 5 Kidney failure <15 (or dialysis) 9 Reference Range and Interpretation: TnI (ng/ml) Interpretation Less Than 0.06 ng/mL Not supportive of diagnosis of TN 0.06 - 0.50 ng/ml Indeterminate: suggest serial studies if clinically indicated. Greater than 0.5 ng/mL Consistent with diagnosis of TN 10 Test Performed by: [place] [address] Rewinder Operator: Shamar Swartz III, M.D. 11 Because ethnic data is not always readily available, this report includes an eGFR for both -Americans and non- Americans. The National Kidney Disease Education Program (NKDEP) does not endorse the use of the MDRD equation for patients that are not between the ages of 18 and 70, are , have extremes of body size, muscle mass, or nutritional status, or are non- or non-. According to the National Kidney Foundation, irrespective of diagnosis, the stage of the disease is based on the level of kidney function: Stage Description GFR(mL/min/1.73 m(2)) 1 Kidney damage with normal or decreased GFR 90 2 Kidney damage with mild decrease in GFR 60-89 3 Moderate decrease in GFR 30-59 4 Severe decrease in GFR 15-29 5 Kidney failure <15 (or dialysis) 12 THERAPEUTIC TARGET FOR THE TREATMENT OF DIABETES MELLITUS PATIENTS IS <7% HBA1C, AND IN SELECTIVE PATIENTS <6.0%. PLEASE REFER TO [employer] DIABETIC CARE GUIDELINES FOR FURTHER INFORMATION. 13 CHOLESTEROL INTERPRETATION: Desirable: Less than 200 MG/DL Borderline-High Risk: 200-239 MG/DL High-Risk: 240 MG/DL and over 14 HDL INTERPRETATION: Undesirable: High Risk: Less than 40 MG/DL Desirable: Low Risk: Greater than 60 MG/DL 15 LDL INTERPRETATION: Low Risk Optimal Level: LDL Less than 100 MG/DL Near or Above Optimal: LDL 100-129 MG/DL Borderline High Risk: LDL 130-159 MG/DL High Risk: LDL 160-189 MG/DL Very High Risk: LDL Greater than 189 MG/DL 16 Anion gap measurement may be of limited value in the presence of any alkalosis, especially in a combined acid base disorder. . 17 A metabolite of Naproxen, O-desmethylnaproxen, has been shown to interfere with the Jendrassik-Taty method for measuring total bilirubin. Samples from patients who have taken Naproxen have shown spurious elevation in total bilirubin levels. 18 Because ethnic data is not always readily available, this report includes an eGFR for both -Americans and non- Americans. The National Kidney Disease Education Program (NKDEP) does not endorse the use of the MDRD equation for patients that are not between the ages of 18 and 70, are , have extremes of body size, muscle mass, or nutritional status, or are non- or non-. According to the National Kidney Foundation, irrespective of diagnosis, the stage of the disease is based on the level of kidney function: Stage Description GFR(mL/min/1.73 m(2)) 1 Kidney damage with normal or decreased GFR 90 2 Kidney damage with mild decrease in GFR 60-89 3 Moderate decrease in GFR 30-59 4 Severe decrease in GFR 15-29 5 Kidney failure <15 (or dialysis) 19 MICROALBUMINURIA IN A RANDOM SAMPLE IS DEFINED : MICROALBUMIN/CREATININE RATIO OF 30-299 ug/mg. . 20 ---- RUN DATE: 12/25/11 [facility] NMI LIVE PAGE 1 RUN TIME: 1223 Specimen Inquiry RUN USER: INTERFACE -- Name: NATY HARRIS Status: REG REF Re12/22/11 Age/Sex: 71/M Unit#: [id number] Location: [facility] : 44 -- Specimen: [id number] Spec Date:12/22/[address] [facility] [address]: Raine Leon Spec Type: SURGICAL P Received:12/24/11 Copies to: SPECIMEN LEFT LOWER LEG HISTORY PRE-OP DIAGNOSIS: Rash left lower leg CLINICAL INFORMATION: Rash left lower leg for 3 weeks GROSS DESCRIPTION The specimen is received in formalin labelled Naty Harris, and consists of a punch biopsy specimen measuring 0.3 x 0.3 x 0.6 cm. The specimen is inked and bisected. Submitted entirely, one cassette. 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 COMMENT The differential diagnosis includes erythema annularis centrifugum, viral exanthem or drug reaction amongst others. Clinical correlation is suggested. Signed Electronically by: ROBIN CARRILLO MD 12/25/11 1218 -- -- DEPARTMENT OF PATHOLOGY, [address] [place] [address] [facility] Permit #[id number] Robin Carrillo M.D. Director Corinne Copeland M.D. Solar Consultant Dir lucasor -- 21 Anion gap measurement may be of limited value in the presence of any alkalosis, especially in a combined acid base disorder. . 22 Because ethnic data is not always readily available, this report includes an eGFR for both -Americans and non- Americans. The National Kidney Disease Education Program (NKDEP) does not endorse the use of the MDRD equation for patients that are not between the ages of 18 and 70, are , have extremes of body size, muscle mass, or nutritional status, or are non- or non-. According to the National Kidney Foundation, irrespective of diagnosis, the stage of the disease is based on the level of kidney function: Stage Description GFR(mL/min/1.73 m(2)) 1 Kidney damage with normal or decreased GFR 90 2 Kidney damage with mild decrease in GFR 60-89 3 Moderate decrease in GFR 30-59 4 Severe decrease in GFR 15-29 5 Kidney failure <15 (or dialysis) 23 Anion gap measurement may be of limited value in the presence of any alkalosis, especially in a combined acid base disorder. . 24 A metabolite of Naproxen, O-desmethylnaproxen, has been shown to interfere with the Jendrassik-Taty method for measuring total bilirubin. Samples from patients who have taken Naproxen have shown spurious elevation in total bilirubin levels. 25 Because ethnic data is not always readily available, this report includes an eGFR for both -Americans and non- Americans. The National Kidney Disease Education Program (NKDEP) does not endorse the use of the MDRD equation for patients that are not between the ages of 18 and 70, are , have extremes of body size, muscle mass, or nutritional status, or are non- or non-. According to the National Kidney Foundation, irrespective of diagnosis, the stage of the disease is based on the level of kidney function: Stage Description GFR(mL/min/1.73 m(2)) 1 Kidney damage with normal or decreased GFR 90 2 Kidney damage with mild decrease in GFR 60-89 3 Moderate decrease in GFR 30-59 4 Severe decrease in GFR 15-29 5 Kidney failure <15 (or dialysis) 26 New Reference Range and Interpretation effective 03/24/2002 TnI (ng/ml) INTERPRETATION Less Than 0.06 ng/mL NOT SUPPORTIVE OF DIAGNOSIS OF TN 0.06 - 0.50 ng/ml INDETERMINATE: SUGGEST SERIAL STUDIES IF CLINICALLY INDICATED. Greater than 0.5 ng/mL CONSISTENT WITH DIAGNOSIS OF TN . 27 Recommended INR for Patients on Oral Anticoagulants Prophylaxis 2.0 - 3.0 Treatment of thrombosis 2.0 - 3.0 Prevention of embolism 2.0 - 3.0 Prevention of embolism from prosthetic heart valves 2.5 - 3.5 28 DIAGNOSIS,TREATMENT,AND THERAPY MUST BE BASED ON THE INR VALUE ALONE. 29 Please note change in reference range effective 08 . 30 Anion gap measurement may be of limited value in the presence of any alkalosis, especially in a combined acid base disorder. . 31 A metabolite of Naproxen, O-desmethylnaproxen, has been shown to interfere with the Jendrassik-Taty method for measuring total bilirubin. Samples from patients who have taken Naproxen have shown spurious elevation in total bilirubin levels. 32 Because ethnic data is not always readily available, this report includes an eGFR for both -Americans and non- Americans. The National Kidney Disease Education Program (NKDEP) does not endorse the use of the MDRD equation for patients that are not between the ages of 18 and 70, are , have extremes of body size, muscle mass, or nutritional status, or are non- or non-. According to the National Kidney Foundation, irrespective of diagnosis, the stage of the disease is based on the level of kidney function: Stage Description GFR(mL/min/1.73 m(2)) 1 Kidney damage with normal or decreased GFR 90 2 Kidney damage with mild decrease in GFR 60-89 3 Moderate decrease in GFR 30-59 4 Severe decrease in GFR 15-29 5 Kidney failure <15 (or dialysis) 33 CHOLESTEROL INTERPRETATION: Desirable: Less than 200 MG/DL Borderline-High Risk: 200-239 MG/DL High-Risk: 240 MG/DL and over 34 HDL INTERPRETATION: Undesirable: High Risk: Less than 40 MG/DL Desirable: Low Risk: Greater than 60 MG/DL 35 LDL INTERPRETATION: Low Risk Optimal Level: LDL Less than 100 MG/DL Near or Above Optimal: LDL 100-129 MG/DL Borderline High Risk: LDL 130-159 MG/DL High Risk: LDL 160-189 MG/DL Very High Risk: LDL Greater than 189 MG/DL 36 A metabolite of Naproxen, O-desmethylnaproxen, has been shown to interfere with the Jendrassik-Taty method for measuring total bilirubin. Samples from patients who have taken Naproxen have shown spurious elevation in total bilirubin levels. 37 Please note updated reference range, effective 01/09/10 38 THERAPEUTIC TARGET FOR THE TREATMENT OF DIABETES MELLITUS PATIENTS IS <7% HBA1C, AND IN SELECTIVE PATIENTS <6.0%. PLEASE REFER TO [employer] DIABETIC CARE GUIDELINES FOR FURTHER INFORMATION. 39 Anion gap measurement may be of limited value in the presence of any alkalosis, especially in a combined acid base disorder. . 40 A metabolite of Naproxen, O-desmethylnaproxen, has been shown to interfere with the Jendrassik-Taty method for measuring total bilirubin. Samples from patients who have taken Naproxen have shown spurious elevation in total bilirubin levels. 41 Because ethnic data is not always readily available, this report includes an eGFR for both -Americans and non- Americans. The National Kidney Disease Education Program (NKDEP) does not endorse the use of the MDRD equation for patients that are not between the ages of 18 and 70, are , have extremes of body size, muscle mass, or nutritional status, or are non- or non-. According to the National Kidney Foundation, irrespective of diagnosis, the stage of the disease is based on the level of kidney function: Stage Description GFR(mL/min/1.73 m(2)) 1 Kidney damage with normal or decreased GFR 90 2 Kidney damage with mild decrease in GFR 60-89 3 Moderate decrease in GFR 30-59 4 Severe decrease in GFR 15-29 5 Kidney failure <15 (or dialysis) 42 CHOLESTEROL INTERPRETATION: Desirable: Less than 200 MG/DL Borderline-High Risk: 200-239 MG/DL High-Risk: 240 MG/DL and over 43 HDL INTERPRETATION: Undesirable: High Risk: Less than 40 MG/DL Desirable: Low Risk: Greater than 60 MG/DL 44 LDL INTERPRETATION: Low Risk Optimal Level: LDL Less than 100 MG/DL Near or Above Optimal: LDL 100-129 MG/DL Borderline High Risk: LDL 130-159 MG/DL High Risk: LDL 160-189 MG/DL Very High Risk: LDL Greater than 189 MG/DL 45 Please note updated reference range, effective 01/09/10 46 THERAPEUTIC TARGET FOR THE TREATMENT OF DIABETES MELLITUS PATIENTS IS <7% HBA1C, AND IN SELECTIVE PATIENTS <6.0%. PLEASE REFER TO [employer] DIABETIC CARE GUIDELINES FOR FURTHER INFORMATION. 47 THERAPEUTIC TARGET FOR THE TREATMENT OF DIABETES MELLITUS PATIENTS IS <7% HBA1C, AND IN SELECTIVE PATIENTS <6.0%. PLEASE REFER TO [employer] DIABETIC CARE GUIDELINES FOR FURTHER INFORMATION. 48 THERAPEUTIC TARGET FOR THE TREATMENT OF DIABETES MELLITUS PATIENTS IS <7% HBA1C, AND IN SELECTIVE PATIENTS <6.0%. PLEASE REFER TO [employer] DIABETIC CARE GUIDELINES FOR FURTHER INFORMATION. 49 THERAPEUTIC TARGET FOR THE TREATMENT OF DIABETES MELLITUS PATIENTS IS <7% HBA1C, AND IN SELECTIVE PATIENTS <6.0%. PLEASE REFER TO [employer] DIABETIC CARE GUIDELINES FOR FURTHER INFORMATION. 50 COMMENTS? Q 8HR 0630 51 RESULTS VERIFIED BY REPEAT ANALYSIS ON THE SAME SAMPLE. REPEATED RESULT IS:0.14 VERBAL TO NORBERTO BY BM at 0705 on 04/27/08 that panic result(s) have been sent to the printer.@ New Reference Range and Interpretation effective 03/24/02 TnI (ng/ml) INTERPRETATION <0.06 ng/ml NOT SUPPORTIVE OF DIAGNOSIS OF [place] 0.06 - 0.50 ng/ml INDETERMINATE: SUGGEST SERIAL STUDIES IF CLINICALLY INDICATED. > 0.5 ng/ml CONSISTENT WITH DIAGNOSIS OF [place] . 52 Anion gap measurement may be of limited value in the presence of any alkalosis, especially in a combined acid base disorder. . 53 VERBAL TO NORBERTO BY BM at 0708 on 04/27/08 that panic result(s) have been sent to the printer. RESULTS VERIFIED BY REPEAT ANALYSIS ON THE SAME SAMPLE. REPEATED RESULT IS:461 Note change in reference range as of 02/09/08. The change was based on recommendations from the [employer] [employer]. 54 Please note change in reference range effective 07 . 55 INTERPRETATION %CK-MB < 5% NOT SUPPORTIVE OF DIAGNOSIS OF [place] 5 - <10% INDETERMINATE; SUGGEST SERIAL STUDIES IF CLINICALLY INDICATED 10% OR > CONSISTENT WITH DIAGNOSIS OF [place] . 56 COMMENTS? 0200 57 Anion gap measurement may be of limited value in the presence of any alkalosis, especially in a combined acid base disorder. . 58 Note change in reference range as of 02/09/08. The change was based on recommendations from the [employer]. 59 Please note change in reference range effective 07 . 60 INTERPRETATION %CK-MB < 5% NOT SUPPORTIVE OF DIAGNOSIS OF [place] 5 - <10% INDETERMINATE; SUGGEST SERIAL STUDIES IF CLINICALLY INDICATED 10% OR > CONSISTENT WITH DIAGNOSIS OF [place] . 61 SAMPLE TO BE DRAWN AT 1800 62 AZRA VALUE=2.01 ( OF 05/27/07 Recommended INR for Patients on Oral Anticoagulants Prophylaxis 2.0 - 3.0 Treatment of thrombosis 2.0 - 3.0 Prevention of embolism 2.0 - 3.0 Prevention of embolism from prosthetic heart valves 2.5 - 3.5 63 PLEASE NOTE NEW REFERENCE RANGE EFFECTIVE 07. 64 RESULTS VERIFIED BY REPEAT ANALYSIS ON THE SAME SAMPLE. REPEATED RESULT IS:6.7 VERBAL TO LOUIE BY CSAEY at 1420 on 04/26/08. Results read back accurately. 65 Anion gap measurement may be of limited value in the presence of any alkalosis, especially in a combined acid base disorder. . 66 Note change in reference range as of 02/09/08. The change was based on recommendations from the [employer] [employer]. 67 Please note change in reference range effective 07 . 68 Lymphopenia % Anemia 69 New Reference Range and Interpretation effective 03/24/02 TnI (ng/ml) INTERPRETATION <0.06 ng/ml NOT SUPPORTIVE OF DIAGNOSIS OF [place] 0.06 - 0.50 ng/ml INDETERMINATE: SUGGEST SERIAL STUDIES IF CLINICALLY INDICATED. > 0.5 ng/ml CONSISTENT WITH DIAGNOSIS OF [place] . 70 Anion gap measurement may be of limited value in the presence of any alkalosis, especially in a combined acid base disorder. . 71 Note change in reference range as of 02/09/08. The change was based on recommendations from the [employer]. 72 Please note change in reference range effective 07 . 73 COMMENTS? 1800 74 Anion gap measurement may be of limited value in the presence of any alkalosis, especially in a combined acid base disorder. . 75 Note change in reference range as of 02/09/08. The change was based on recommendations from the [employer] [employer]. 76 Please note change in reference range effective 07 . 77 Anion gap measurement may be of limited value in the presence of any alkalosis, especially in a combined acid base disorder. . 78 Note change in reference range as of 02/09/08. The change was based on recommendations from the [employer]. 79 Please note change in reference range effective 07 . 80 PREADMISSION TESTING SAMPLES FOR BLOOD BANK WILL BE HELD FOR 14 DAYS FROM THE DATE OF COLLECTION *IF* THE FOLLOWING CRITERIA ARE MET: 1) THE PATIENT HAS *NOT* BEEN IN THE LAST 3 MONTHS. 2) THE PATIENT HAS *NOT* BEEN TRANSFUSED IN THE LAST 3 MONTHS. PREADMISSION TESTING SAMPLES WILL *NOT* BE HELD FOR 14 DAYS FROM PATIENTS WHO IN THE LAST 3 MONTHS: 1) HAVE BEEN 2) HAVE BEEN TRANSFUSED THESE PATIENTS *MUST* BE COLLECTED WITHIN 3 DAYS OF THE SURGERY DATE. 81 PLEASE NOTE NEW REFERENCE RANGE EFFECTIVE 07. 82 AZRA VALUE=2.01 ( OF 05/27/07 Recommended INR for Patients on Oral Anticoagulants Prophylaxis 2.0 - 3.0 Treatment of thrombosis 2.0 - 3.0 Prevention of embolism 2.0 - 3.0 Prevention of embolism from prosthetic heart valves 2.5 - 3.5 Procedures Date CPT Code Description Status Comment 07/07/2017 10916 Mccloud/Facet/Foraminotomy;Vertebra Completed l Segment; Lumbar 07/07/2017 17709 Mccloud/Facet/Foraminotomy;Vertebra Completed l Segment; Lumbar 01/26/2017 79501 EKG Tracing & Completed Interpretation 11/08/2015 57668 EKG Tracing & Completed Interpretation 11/16/2014 50208 EKG Tracing & Completed Interpretation 11/20/2013 66674 EKG Tracing & Completed Interpretation 05/04/2013 31793 Inhalation TX For Acute Airway Completed Obstruction W/Nebulizer/Inhaler 02/16/2013 84285 ECHO Transthoracic, Real-Time Completed 2D With Doppler And Color Flow 02/14/2013 32377 Stress Test Completed 02/14/2013 51703 Myocardial Perfusion Imaging Completed Tomographic (Spect) Multiple Studies 02/09/2013 51424 EKG Tracing & Completed Interpretation 06/22/2012 06200 EKG Tracing & Completed Interpretation 12/22/2011 03840 Biopsy Skin Lesion Single Completed 09/25/2011 08140 Left Heart Cath. Incl S/I Completed Coronaries, Angio S/I V Gram If Done 09/25/2011 31066 Left Heart Cath. Incl S/I Completed Coronaries, Angio S/I V Gram If Done 10/31/2010 Diabetic Retinal Eye Exam Completed Document: 10/31/10 - Consult Ophthalmology,Funes 10/04/2008 38429 Noninvasive Ear Or Pulse Completed Oximetry For Oxygen Saturation 04/26/2008 29377 Mccloud/Facet/Foraminotomy;Ea Addl Completed Segment; Cerv, Thora, Or Lumbar 04/26/2008 48961 Mccloud/Facet/Foraminotomy;Ea Addl Completed Segment; Cerv, Thora, Or Lumbar 04/26/2008 07896 Mccloud/Facet/Foraminotomy;Vertebra Completed l Segment; Lumbar 04/17/2008 17557 EKG Tracing & Completed Interpretation 04/17/2008 25160 EKG Tracing & Completed Interpretation 09/09/2006 38506 EKG Tracing & Completed Interpretation Encounters Type Date Location Provider CPT E/M Dx Office Visit 07/16/2017 8:30a [facility] Yessy Guzman M.D. 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, Hospitalists CODING COMPLIANCE SPECIALIST G89.29 E11.9 I10 Office Visit 07/12/2017 [facility] Abida Jameson, 57216 M54.42 10:01a Assoc, CODING COMPLIANCE SPECIALIST Hospitalists E11.9 G89.29 I10 Office Visit 07/11/2017 [facility] Abida Jameson, 97587 M54.42 10:01a Assoc, CODING COMPLIANCE SPECIALIST Hospitalists E11.9 G89.29 I10 Office Visit 07/10/2017 [facility] Abida Jameson, 97077 M54.42 10:00a Assoc, CODING COMPLIANCE SPECIALIST Hospitalists E11.9 G89.29 I10 Office Visit 07/09/2017 [facility] Abida Jameson, 05101 M54.42 9:59a Assoc, CODING COMPLIANCE SPECIALIST Hospitalists E11.9 G89.29 I10 Office Visit 07/08/2017 9:59a [facility] Abida Jameson, 36048 E11.9 Assoc, CODING COMPLIANCE SPECIALIST Hospitalists G89.29 M79.652 I10 Office Visit 07/07/2017 9:58a [facility] Assoc,pc [place], 42675 E11.9 Hospitalists CODING COMPLIANCE SPECIALIST G89.29 M79.652 I10 Office Visit 07/07/2017 7:00a [facility] Sudeep Justin, 47054 M48.061 Of [facility] M.D. Office Visit 07/06/2017 3:56p [facility] Loida Arvizu, 66485 E11.9 Assoc,pc Hospitalists CODING COMPLIANCE SPECIALIST G89.29 M79.652 I10 Office Visit 07/05/2017 7:00a [facility] Marline Jones PA-C 48711 M48.061 Of [facility] Office Visit 07/05/2017 3:55p [facility] Assoc,pc [place] Arvizu, 67244 G89.29 Hospitalists CODING COMPLIANCE SPECIALIST M79.652 E11.9 I10 Office Visit 07/04/2017 3:54p [facility] Assoc,pc Yessy Guzman, 04969 M79.652 Hospitalists M.D. E11.9 G89.29 I10 Office Visit 01/26/2017 2:30p [facility] Brandee Davila M.D. 50111 I25.10 [facility] E78.2 I10 E11.8 I45.10 Z68.34 Office Visit 07/15/2016 2:00p [facility] [place] 66051 G47.33 Services Of [facility] JULIO CÉSAR JERONIMO FNP-BC G47.00 G47.61 Office Visit 06/05/2016 10:30a [facility] [place] 86091 G47.00 Services Of [facility] JULIO CÉSAR JERONIMO FNP-BC G47.33 G47.61 Office Visit 01/28/2016 2:00p [facility] [place] 73963 G47.33 Services Of [facility] JULIO CÉSAR JERONIMO FNP-BC G47.61 G89.29 Office Visit 11/08/2015 10:45a [facility] Brandee Davila M.D. 28751 I25.10 [facility] E78.0 I12.9 E11.40 N18.3 Office Visit 11/16/2014 8:30a [facility] Brandee Davila M.D. 68821 414.01 [facility] 272.0 401.9 278.01 Office Visit 11/20/2013 9:30a [facility] Of Kenia Davila M.D. 53758 414.01 Body Shop Manager 272.0 401.9 250.60 Office Visit 05/04/2013 2:00p [facility] Internal [facility] - Raine Price M.D., 38030 466.0 [place] FACP Office Visit 04/26/2013 7:45a [facility] Of Kenia Davila M.D. 63082 786.05 Body Shop Manager 414.01 401.9 272.0 Office Visit 03/23/2013 10:00a [facility] - Raine Price M.D., 54518 250.60 [place] FACP Office Visit 03/15/2013 9:00a [facility] Of Kenia Davila M.D. 17719 786.09 Body Shop Manager 786.50 414.01 401.9 Office Visit 02/16/2013 3:40p [facility] Internal [facility] - Raine Price M.D., 13875 466.0 [place] FACP 786.05 719.49 Office Visit 02/09/2013 9:45a [facility] Of Kenia Davila M.D. 95544 786.05 Body Shop Manager 414.9 401.9 272.0 Office Visit 10/13/2012 9:00a [facility] Raine Price M.D., 53174 719.49 - [place] FACP Office Visit 08/04/2012 9:40a [facility] Raine Price M.D., 08741 250.60 - [place] FACP 611.1 Office Visit 07/21/2012 10:40a [facility] Raine Price M.D., 78931 611.1 - [place] FACP Office Visit 06/22/2012 10:40a [facility] Raine Price M.D., 96714 250.00 - [place] FACP 786.09 Office Visit 04/04/2012 12:00p [facility] Raine Price M.D., 67431 719.49 - [place] FACP Office Visit 02/04/2012 9:40a [facility] Raine Price M.D., 34854 250.00 - [place] FACP 272.0 709.8 V06.1 V05.3 Office Visit 12/22/2011 9:20a [facility] - Raine Price M.D., 73244 782.1 [place] FACP 238.2 239.2 250.00 Office Visit 11/04/2011 9:40a [facility] - Raine Price M.D., 50510 250.60 [place] FACP Office Visit 10/13/2011 2:00p [facility], 37321 414.01 [facility] N[facility] Office Visit 09/30/2011 1:00p [facility] Internal Medicine - Raine Price M.D., 75984 786.50 [place] FACP 250.60 V05.3 Office Visit 09/25/2011 9:06a [facility] Ivette Youngblood D.O. 23659 786.50 786.09 414.01 786.50 786.09 414.01 Office Visit 08/11/2011 1:40p [facility] Audelia Hansen, 98655 729.5 - [place] M.DMarisela Office Visit 07/06/2011 11:20a [facility] Raine Price M.D., 17260 250.00 - [place] FACP 311 Office Visit 03/24/2011 9:00a DO Not Use Body Shop Manager-[place] Raine Price, 78377 724.2 M.D., FACP 250.00 v04.81 Office Visit 12/31/2010 4:00p DO Not Use [employer] Shop [facility]-[place] Raine Price, 89999 724.2 M.D., FACP 333.94 Office Visit 12/11/2010 10:00a DO Not Use [employer] [facility] Raine Price 93194 250.00 M.D., FACP Office Visit 08/14/2010 10:30a DO Not Use [employer] Shop Manager-[place] Raine Price, 07382 250.00 M.D., FACP 451.0 724.2 327.26 Office Visit 04/08/2010 9:45a DO Not Use [employer] Shop Manager[facility] Raine Prcie, 83030 250.00 M.D., FACP 338.29 V04.81 Office Visit 02/11/2010 9:15a DO Not Use [employer] [facility] Raine Dee, 43989 250.00 M.D., FACP Office Visit 12/12/2009 9:45a DO Not Use [employer] Shop Manager[facility] Raine Dee, 58932 338.29 M.D., FACP 311 Office Visit 10/28/2009 10:00a DO Not Use [employer] [facility] Raine Dee, 69059 250.02 M.D., FACP 311 Office Visit 07/29/2009 9:45a DO Not Use [employer] [facility] Raine Dee, 47195 724.2 M.D., FACP 465.9 Office Visit 04/04/2009 10:00a DO Not Use [employer] [facility] Raine Dee, 56977 250.00 M.D., FACP V04.81 Office Visit 03/05/2009 11:20a [facility] Rich Joseph, 53603 724.2 Of Body Shop Manager M.D. Office Visit 12/07/2008 10:00a DO Not Use Raine Price M.D., 31689 250.00 [employer] Shop Manager-[place] FACP Office Visit 11/06/2008 9:00a DO Not Use Raine Price M.D., 84244 724.2 [employer] Shop Manager[facility] FACP 250.00 Office Visit 10/23/2008 10:00a [facility] Rich Joseph, 37080 721.3 Of Body Shop Manager M.D. Office Visit 10/04/2008 10:15a DO Not Use Raine Price M.D., 11200 486 Body Shop Manager-[place] FACP 780.79 Office Visit 09/11/2008 9:40a [facility] Rich Joseph, 88000 721.3 Of Body Shop Manager M.D. Office Visit 09/06/2008 12:00p DO Not Use Raine Price M.D., 58527 724.2 Body Shop Manager-[place] FACP Office Visit 04/17/2008 2:30p DO Not Use Raine Price M.D., 48122 V72.84 [employer] Manager[facility] FACP 401.1 V04.81 Office Visit 04/03/2008 9:20a [facility] Rich Joseph, 03648 724.02 Of Body Shop Manager M.D. Office Visit 03/02/2008 1:30p DO Not Use Raine Price M.D., 15901 724.2 [employer] Manager-[place] FACP 724.02 Office Visit 02/09/2008 10:45a DO Not Use [facility] [employer] [facility] Rainekarma Price, 13923 729.1 M.D., FACP 250.02 791.0 401.1 Office Visit 11/08/2007 10:45a DO Not Use [employer] [facility] Raine Dee, 76965 250.00 M.D., FACP 724.2 414.00 Office Visit 05/03/2007 11:30a DO Not Use [facility] Raine Dee, 16015 250.00 M.D., FACP 401.1 443.9 Office Visit 03/31/2007 12:15p DO Not Use [facility] Raine Dee, 28171 729.5 M.D., FACP V04.81 Office Visit 02/08/2007 11:45a DO Not Use [employer] [facility] Raine Dee, 61838 447.9 M.D., FACP 250.00 Office Visit 01/11/2007 9:30a DO Not Use [employer] [facility] Raine Dee, 13577 443.9 M.D., FACP 414.00 724.02 Office Visit 12/10/2006 10:30a DO Not Use [employer] [facility] Raine Dee, 81770 250.00 M.D., FACP 285.9 414.00 593.9 Office Visit 09/09/2006 2:15p DO Not Use [employer] Manager[facility] Raine Dee, 81300 414.00 M.D., FACP 250.00 593.9 724.02 Plan of Care Future Appointment(s):08/30/2017 10:00 am - Sudeep Anderson M.D. at [facility]08/02/2017 - Sudeep Anderson M.D.Z48.89 Encounter for other specified surgical aftercareNew Medication:Magnesium Citrate 1.745 GM/ 30MLFollow up:4 weeks
[2017-08-07 10:43] LABS: ABS Basophils 0 10^3/ul (0-0.2); ABS Eosinophils 0.1 10^3/ul (0-0.6); ABS Lymphocytes 1.3 10^3/ul (1.0-4.8); ABS Monocytes 0.3 10^3/ul (0-0.8); ABS Nucleated RBC 0 10^3/ul; Eosinophil % 0.7 % (0-6); Hematocrit 37 % (42-52); Hemoglobin 11.7 g/dl (14.0-18.0); Lymphocyte % 16.7 % (25-47); Mean Corpuscular HGB Conc 32 g/dl (31-36); Mean Corpuscular Hemoglobin 29 pg (27-31); Mean Corpuscular Volume 90 fL (80-94); Mean Platelet Volume 10 um3 (7.4-10.4); Nucleated Red Blood Cells % 0; Platelet Count 207 10^3/ul (150-450); Red Blood Count 4.07 10^6/ul (4.0-5.4); Red Cell Distribution Width 14 % (10.5-15); White Blood Count 7.6 10^3/ul (3.5-10.8)
[2017-08-07 10:53] LABS: INR 0.86 (0.77-1.02)
[2017-08-07 10:59] LABS: EGFR Non-African American 39.2 (>60)
[2017-08-07 12:50] VITALS: BP 145/66
--- NOTE | 2017-08-08 20:28 | ED ---
Escobar Marsh Natalie, scribed for Kriss Alejo MD on 08/07/17 at 1150 . HPI Diabetic - HPI Summary HPI Summary: The patient is a 77 y/o M presenting to the ED via EMS with family reporting low blood sugar of 32 this morning with decreased mental status. Pt is a diabetic and is on an insulin pump. Family discontinued pt's pump as soon as pt was noted with low glucose. He had spinal stenosis surgery and hasnt been moving around as much as usual, but he has been eating normally. He uses a walker but is still unsteady. Last night, per , the patients sleep apnea mask was full of foam, and the patient looked like he wasnt breathing when the mask was removed, so she used a glucagon needle on him, presuming he was hypoglycemic. He was sleeping with his neck down and sounded gurgly, according to daughter. Pt was drowsy but responsive when his glucose was low. Family called 911 and pt was transported to the ED. EMS gave additional glucagon 1mg IM and 1 1/4 tube glucose. His glucose enroute was 58. His blood sugar is taken daily with finger sticks. His blood glucose was normal in the 110s last night. He has had a cough since surgery, but no fever and no chest pain. He was in a [facility] post-surgery but is home now. - History Of Current Complaint Chief Complaint: EDGeneral Time Seen by Provider: 08/07/17 11:31 Hx Obtained From: Patient, Family/Drainage Inspector Onset/Duration: Sudden Onset, Resolved Timing: Constant Severity Initially: Severe Severity Currently: None Character: Alert - in the ED, Lethargic - prior to admission for EMS Aggravating: Change in Activity Level Alleviating: EMS Treatment - given glucagon at home and by EMS and 1 1/4 tube oral glucose Associated Signs & Symptoms: Cough, Decreased Level of Conciousness Related History: DM II, Insulin Pump - Allergies/Home Medications Allergies/Adverse Reactions: Allergies Allergy/AdvReac Type Severity Reaction Status Date / Time MS Morphine [Morphine] Allergy Severe Hallucinati Verified 06/23/17 09:50 ons MS Penicillin V Allergy Intermediate Hives Verified 06/23/17 09:50 [From Penicillin VK Potassium] Adhesive Tape AdvReac Intermediate Hives; Verified 06/23/17 09:50 Blisters Home Medications: Home Medications Aspirin EC Low Dose* [Ecotrin EC Low Dose 81 MG*] 81 mg PO DAILY 08/07/17 [ History Confirmed 08/07/17] Citalopram TAB* [CeleXA TAB*] 20 mg PO DAILY 08/07/17 [History Confirmed ] Fenofibrate(NF) [Tricor(NF)] 160 mg PO DAILY 08/07/17 [History Confirmed ] Folic Acid TAB* [Folvite TAB*] 800 mcg PO DAILY 08/07/17 [History Confirmed ] [place]-3 Fatty Acids (Nf) [Fish Oil (NF)] 1,000 mg PO DAILY 08/07/17 [History Confirmed 08/07/17] Pantoprazole TAB (NF) [Protonix TAB (NF)] 40 mg PO DAILY 08/07/17 [History Confirmed 08/07/17] Simvastatin (NF) [Zocor (NF)] 40 mg PO BEDTIME 08/07/17 [History Confirmed 08/07] rOPINIRole TAB* [Requip*] 0.5 mg PO DAILY 08/07/17 [History Confirmed 08/07/17] PMH/Surg Hx/FS Hx/Imm Hx Previously Healthy: No Endocrine/Hematology History: Reports: Hx Diabetes Denies: Hx Thyroid Disease Cardiovascular History: Reports: Hx Coronary Artery Disease, Hx Deep Vein Thrombosis - multiple DVT's/clotting issues, Hx Hypercholesterolemia, Hx Hypertension Respiratory History: Reports: Hx Sleep Apnea - current BiPAP user Denies: Hx Asthma, Hx Chronic Obstructive Pulmonary Disease (COPD) GI History: Reports: Hx Gastroesophageal Reflux Disease Denies: Hx Ulcer History: Reports: Hx Chronic Renal Failure - stage III Musculoskeletal History: Reports: Hx Arthritis, Hx Back Problems - Hx of low back pain, lower back laminectomy, Hx Orthopedic Injury - (left) shoulder surgery, Other Musculoskeletal History - Hx of Right Shoulder Pain; Restless Leg Syndrome Sensory History: Reports: Hx Contacts or Glasses Denies: Hx Hearing Aid Opthamlomology History: Reports: Hx Contacts or Glasses Neurological History: Reports: 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 (left) shoulder surgery per records. 1984 cervical neck FX w/fusion. lower back laminectomy. Right knee replacement03/04. left knee replacement 05/04 Infectious Disease History: No Infectious Disease History: Denies: Hx Hepatitis, Hx Human Immunodeficiency Virus (HIV), Traveled Outside the [place] in Last 30 Days - Family History Known Family History: Positive: Cardiac Disease, Diabetes, Other - Alzheimer's and CA - Social History Occupation: Disabled Lives: With Family Alcohol Use: None Substance Use Type: Reports: None Substance Use Comment - Amount & Last Used: fentanyl patch and percocet Smoking Status (MU): Former Smoker Type: Cigarettes Review of Systems Constitutional: Negative Cardiovascular: Negative Positive: Cough Gastrointestinal: Negative Skin: Negative Neurological: Other - normal appetite, decreased activity level, lethargic when glucose low prior to admission to ED All Other Systems Reviewed And Are Negative: Yes Physical Exam Triage Information Reviewed: Yes Vital Signs On Initial Exam: Initial Vitals Temp Pulse Resp BP Pulse Ox 97.7 F 76 20 158/77 98 08/07/17 09:52 08/07/17 09:52 08/07/17 09:52 08/07/17 09:52 08/07/17 09:52 Vital Signs Reviewed: Yes Appearance: Positive: Well-Appearing - Pt sitting up, eating, conversant, in no apparent distress, wants to go home, No Pain Distress, Well-Nourished Skin: Positive: Warm, Skin Color Reflects Adequate Perfusion Head/Face: Positive: Normal Head/Face Inspection Eyes: Positive: Conjunctiva Clear ENT: Positive: Normal ENT inspection Neck: Positive: Supple Respiratory/Lung Sounds: Positive: Other - Lungs clear, Normal breath sounds, no respiratory distress Cardiovascular: Positive: Other - RRR, No murmur, pulses normal, brisk capillary refill Abdomen Description: Positive: Nontender, Soft Bowel Sounds: Positive: Present Musculoskeletal: Positive: Strength/ROM Intact Neurological: Positive: Other - Alert, muscle tone normal, facial symmetry, speech normal, sensory/motor intact Psychiatric: Positive: Normal - Ruthy Coma Scale Best Eye Response: 4 - Spontaneous Best Motor Response: 6 - Obeys Commands Best Verbal Response: 5 - Oriented Coma Scale Total: 15 Diagnostics - Vital Signs Vital Signs Temp Pulse Resp BP Pulse Ox 08/07/17 11:00 76 18 150/69 99 08/07/17 10:30 73 17 147/61 95 08/07/17 10:25 73 15 95 08/07/17 10:24 148/84 08/07/17 09:52 97.7 F 76 20 158/77 98 - Laboratory Lab Results: Lab Results 08/07/17 08/07/17 08/07/17 Range/Units 10:20 10:20 10:20 WBC 7.6 (3.5-10.8) 10^3/ul RBC 4.07 (4.0-5.4) 10^6/ul Hgb 11.7 L (14.0-18.0) g/dl Hct 37 L (42-52) % MCV 90 (80-94) fL MCH 29 (27-31) pg MCHC 32 (31-36) g/dl RDW 14 (10.5-15) % Plt Count 207 (150-450) 10^3/ul MPV 10 (7.4-10.4) um3 Neut % (Auto) 78.4 (38-83) % Lymph % (Auto) 16.7 L (25-47) % [place] % (Auto) 3.9 (1-9) % Eos % (Auto) 0.7 (0-6) % Baso % (Auto) 0.3 (0-2) % Absolute Neuts (auto) 6.0 (1.5-7.7) 10^3/ul Absolute Lymphs (auto) 1.3 (1.0-4.8) 10^3/ul Absolute Monos (auto) 0.3 (0-0.8) 10^3/ul Absolute Eos (auto) 0.1 (0-0.6) 10^3/ul Absolute Basos (auto) 0 (0-0.2) 10^3/ul Absolute Nucleated RBC 0 10^3/ul Nucleated RBC % 0 INR (Anticoag Therapy) 0.86 (0.77-1.02) VBG pH (7.33-7.43) VBG pCO2 (41-51) mmHg VBG pO2 (35-45) mmHg VBG HCO3 (24-28) mmol/L VBG O2 Saturation (70-80) % VBG Base Excess (0-4) Sodium 142 (133-145) mmol/L Potassium 4.1 (3.5-5.0) mmol/L Chloride 105 (101-111) mmol/L Carbon Dioxide 30 (22-32) mmol/L Anion Gap 7 (2-11) mmol/L BUN 34 H (6-24) mg/dL Creatinine 1.71 H (0.67-1.17) mg/dL Est GFR ( Amer) 50.4 (>60) Est GFR (Non-Af Amer) 39.2 (>60) BUN/Creatinine Ratio 19.9 (8-20) Glucose 121 H (70-100) mg/dL POC Glucose (mg/dL) (70-100) mg/dL Lactic Acid (0.5-2.0) mmol/L Calcium 9.7 (8.6-10.3) mg/dL Total Bilirubin 0.40 (0.2-1.0) mg/dL AST 21 (13-39) U/L ALT 14 (7-52) U/L Alkaline Phosphatase 38 (34-104) U/L Troponin I 0.01 (<0.04) ng/mL C-Reactive Protein 4.73 (< 5.00) mg/L Total Protein 7.6 (6.4-8.9) g/dL Albumin 4.3 (3.2-5.2) g/dL Globulin 3.3 (2-4) g/dL Albumin/Globulin Ratio 1.3 (1-3) 08/07/17 08/07/17 08/07/17 Range/Units 10:20 10:26 10:44 WBC (3.5-10.8) 10^3/ul RBC (4.0-5.4) 10^6/ul Hgb (14.0-18.0) g/dl Hct (42-52) % MCV (80-94) fL MCH (27-31) pg MCHC (31-36) g/dl RDW (10.5-15) % Plt Count (150-450) 10^3/ul MPV (7.4-10.4) um3 Neut % (Auto) (38-83) % Lymph % (Auto) (25-47) % [place] % (Auto) (1-9) % Eos % (Auto) (0-6) % Baso % (Auto) (0-2) % Absolute Neuts (auto) (1.5-7.7) 10^3/ul Absolute Lymphs (auto) (1.0-4.8) 10^3/ul Absolute Monos (auto) (0-0.8) 10^3/ul Absolute Eos (auto) (0-0.6) 10^3/ul Absolute Basos (auto) (0-0.2) 10^3/ul Absolute Nucleated RBC 10^3/ul Nucleated RBC % INR (Anticoag Therapy) (0.77-1.02) VBG pH 7.39 (7.33-7.43) VBG pCO2 57 H (41-51) mmHg VBG pO2 20 L (35-45) mmHg VBG HCO3 29.9 H (24-28) mmol/L VBG O2 Saturation 39.9 L (70-80) % VBG Base Excess 8.0 H (0-4) Sodium (133-145) mmol/L Potassium (3.5-5.0) mmol/L Chloride (101-111) mmol/L Carbon Dioxide (22-32) mmol/L Anion Gap (2-11) mmol/L BUN (6-24) mg/dL Creatinine (0.67-1.17) mg/dL Est GFR ( Amer) (>60) Est GFR (Non-Af Amer) (>60) BUN/Creatinine Ratio (8-20) Glucose (70-100) mg/dL POC Glucose (mg/dL) 132 H (70-100) mg/dL Lactic Acid 1.2 (0.5-2.0) mmol/L Calcium (8.6-10.3) mg/dL Total Bilirubin (0.2-1.0) mg/dL AST (13-39) U/L ALT (7-52) U/L Alkaline Phosphatase (34-104) U/L Troponin I (<0.04) ng/mL C-Reactive Protein (< 5.00) mg/L Total Protein (6.4-8.9) g/dL Albumin (3.2-5.2) g/dL Globulin (2-4) g/dL Albumin/Globulin Ratio (1-3) Result Diagrams: 08/07/17 10:20 08/07/17 10:20 Lab Statement: Any lab studies that have been ordered have been reviewed, and results considered in the medical decision making process. Diabetic Course/Dx - Course Course Of Treatment: Allergies noted. Pt medications reviewed during this visit. By lab blood glucose is 121. FS glucose is 132. Other labs show anemia and CKD, with values similar to recent studies. Pt ate a sandwich and crackers and juice in the ED and is fully alert. The patient is diagnosed with hypoglycemia in DM pt. The patient will be discharged with prescription for glucagon for possible future emergencies. He is advised to use his insulin pump as advised by his diabetes providers, whom he will call now. - Diagnoses Differential Dx: Diabetic Ketoacidosis, Hypoglycemia, Sepsis Provider Diagnoses: Hypoglycemia, Diabetes mellitus, Spinal stenosis, BHARATI (obstructive sleep apnea) Discharge - Discharge Plan Condition: Stable Disposition: HOME Prescriptions: Glucagon,Human Recombinant [Glucagon Emergency Kit] 1 mg IJ ONCE PRN #1 kit PRN Reason: Sedation Patient Education Materials: Hypoglycemia in a Person with Diabetes (ED) Referrals: Lety Amezquita MD [Primary Care Provider] - 2 Days Additional Instructions: Contact your diabetes provider to obtain further instructions about how to set and use your insulin pump. You glucose in the ER after treatment was 132. Return to the ER if you have any new or worsening symptoms. The documentation as recorded by the Escobar gould Natalie accurately reflects the service I personally performed and the decisions made by , Kriss Alejo MD.
== END 2017-08-07 12:45 | disposition home or self-care (01) ==
LOC: ED 09:45
DX: E11.649 Type 2 diabetes mellitus with hypoglycemia without coma (principal); Z79.4 Long term (current) use of insulin; Z96.41 Presence of insulin pump (external) (internal); M48.00 Spinal stenosis, site unspecified; G47.33 Obstructive sleep apnea (adult) (pediatric); Z87.891 Personal history of nicotine dependence
CPT/HCPCS: 36415; 80053; 82803; 83605; 84484; 85025; 85610; 86140; 93005; 99283

== ENCOUNTER 2017-10-04 19:52 | Emergency (ER) | payer MEDICARE ==
[2017-10-04] MEDS ORDERED: Acetaminophen TAB* 325 MG PO ONE (20:59)
[2017-10-04] MEDS ORDERED: Cyclobenzaprine TAB* 10 MG PO ONE (20:59)
[2017-10-04] MEDS ORDERED: LORazepam INJ* 2 MG/ML 1 ML VIAL ONE (21:46)
[2017-10-04] MEDS ORDERED: LORazepam INJ* 2 MG/ML 1 ML VIAL IM ONE ×2 (21:52→23:10)
[2017-10-05 00:13] VITALS: BP 171/78
--- NOTE | 2017-10-05 19:43 | ED ---
Amandeep Marsh Rebecca, scribed for Jennifer Hatfield MD on 10/04/17 at 2100 . Lower Extremity - HPI Summary HPI Summary: Pt is a 77 y/o M who presents to ED c/o bilateral knee spasm. Pt reports that for the last week he has been intermittently experiencing episodes during which his "knees buckle like spasms." Associated pain is currently severe, ranked 10/ 10. PSHx sciatica surgery on 07/07/2017. He still has a fentanyl patch which was changed yesterday and takes a half a pill of baclofen 3x a day. Previously, flexeril improved his symptoms, though he has none left. PMHx restless leg syndrome - takes 2 Requip. - History of Current Complaint Chief Complaint: EDExtremityLower Stated Complaint: SPASMS IN BOTH KNEES Time Seen by Provider: 10/04/17 20:49 Hx Obtained From: Patient Onset of Pain: Days - 1 week, Prior to Arrival Onset/Duration: Still Present Severity Currently: Severe Pain Intensity: 10 Pain Scale Used: 0-10 Numeric Location: Is Discrete @ - Bilateral knees Associated Signs And Symptoms: Positive: Other - Bilateral knee spasms Aggravating Factor(s): Nothing Alleviating Factor(s): Other - Flexeril (before with similar symptoms) - Allergies/Home Medications Allergies/Adverse Reactions: Allergies Allergy/AdvReac Type Severity Reaction Status Date / Time morphine Allergy Hallucinati Verified 08/31/17 09:26 ons penicillin V Allergy Hives Verified 08/31/17 09:26 Adhesive Tape AdvReac Intermediate Hives; Verified 08/31/17 09:26 Blisters PMH/Surg Hx/FS Hx/Imm Hx Endocrine/Hematology History: Reports: Hx Diabetes Denies: Hx Thyroid Disease Cardiovascular History: Reports: Hx Coronary Artery Disease, Hx Deep Vein Thrombosis - multiple DVT's/clotting issues, Hx Hypercholesterolemia, Hx Hypertension Respiratory History: Reports: Hx Sleep Apnea - current BiPAP user Denies: Hx Asthma, Hx Chronic Obstructive Pulmonary Disease (COPD) GI History: Reports: Hx Gastroesophageal Reflux Disease Denies: Hx Ulcer History: Reports: Hx Chronic Renal Failure - stage III Musculoskeletal History: Reports: Hx Arthritis, Hx Back Problems - Hx of low back pain, lower back laminectomy, Hx Orthopedic Injury - (left) shoulder surgery, Other Musculoskeletal History - Hx of Right Shoulder Pain; Restless Leg Syndrome Sensory History: Reports: Hx Contacts or Glasses Denies: Hx Hearing Aid Opthamlomology History: Reports: Hx Contacts or Glasses Neurological History: Reports: 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 (left) shoulder surgery per records. 1984 cervical neck FX w/fusion. lower back laminectomy. Right knee replacement03/04. left knee replacement 05/04 Infectious Disease History: No Infectious Disease History: Denies: Hx Hepatitis, Hx Human Immunodeficiency Virus (HIV), Traveled Outside the [place] in Last 30 Days - Family History Known Family History: Positive: Cardiac Disease, Diabetes, Other - Alzheimer's and CA - Social History Alcohol Use: None Substance Use Type: Reports: None Substance Use Comment - Amount & Last Used: fentanyl patch and percocet Smoking Status (MU): Former Smoker Type: Cigarettes Review of Systems Negative: Fever Positive: Other - Bilateral knee spasms with pain All Other Systems Reviewed And Are Negative: Yes Physical Exam - Summary Physical Exam Summary: VITAL SIGNS: Reviewed. GENERAL: ~Patient is a well-developed and nourished male who is lying comfortable in the stretcher. Patient is not in any acute respiratory distress. HEAD AND FACE: No signs of trauma. No ecchymosis, hematomas or skull depressions. No sinus tenderness. EYES: PERRLA, EOMI x 2, No injected conjunctiva, no nystagmus. EARS: Hearing grossly intact. Ear canals and tympanic membranes are within normal limits. MOUTH: Oropharynx within normal limits. NECK: Supple, trachea is midline, no adenopathy, no JVD, no carotid bruit, no c- spine tenderness, neck with full ROM. CHEST: Symmetric, no tenderness at palpation LUNGS: Clear to auscultation bilaterally. No wheezing or crackles. CVS: Regular rate and rhythm, S1 and S2 present, no murmurs or gallops appreciated. ABDOMEN: Soft, non-tender. No signs of distention. No rebound no guarding, and no masses palpated. Bowel sounds are normal. EXTREMITIES: FROM in all major joints, no edema, no cyanosis or clubbing. Pt has involuntary movement of both lower extremities which he is unable to stop. NEURO: Alert and oriented x 3. No acute neurological deficits. Speech is normal and follows commands. SKIN: Dry and warm Triage Information Reviewed: Yes Vital Signs On Initial Exam: Initial Vitals Temp Pulse Resp BP Pulse Ox 98.3 F 81 18 181/67 97 10/04/17 19:52 10/04/17 19:52 10/04/17 19:52 10/04/17 19:52 10/04/17 19:52 Vital Signs Reviewed: Yes Diagnostics - Vital Signs Vital Signs Temp Pulse Resp BP Pulse Ox 10/04/17 19:52 98.3 F 81 18 181/67 97 - Laboratory Lab Statement: Any lab studies that have been ordered have been reviewed, and results considered in the medical decision making process. Re-Evaluation - Re-Evaluation First Eval Re-Evaluation Time: 21:41 Comment: Pt continues to be in pain. Second Eval Re-Evaluation Time: 23:10 Change: Improved Comment: Symptoms have improved. Lower Extremity Course/Dx - Course Assessment/Plan: Pt is a 77 y/o M who presents to ED c/o bilateral knee spasm for the last week, described as intermittent "knees buckle like spasms." Associated pain is currently severe, ranked 10/10. PSHx sciatica surgery on 07/07. He still has a fentanyl patch which was changed yesterday and takes a half a pill of baclofen 3x a day. Previously, flexeril improved his symptoms, though he has none left. PMHx restless leg syndrome - takes 2 Requip. In the ED course ,pt was given Tylenol, Flexeril and Ativan which improved symptoms. Pt will be D/C to home with Dx of muscle spasm, Rx for Ativan PRN and a followup with his PCP. He understands and agrees. - Diagnoses Provider Diagnoses: Muscle spasm Discharge - Sign-Out/Discharge Documenting (check all that apply): Discharge - Discharge - Discharge Plan Condition: Stable Disposition: HOME Prescriptions: LORazepam [Ativan] 2 mg PO TID PRN #14 tablet MDD 3 PRN Reason: Spasms - Muscle Patient Education Materials: Muscle Spasm (ED) Referrals: Lety Amezquita MD [Primary Care Provider] - 3 Days Additional Instructions: RETURN TO EMERGENCY DEPARTMENT FOR ANY NEW OR WORSENING SYMPTOMS The documentation as recorded by the Amandeep gould Rebecca accurately reflects the service I personally performed and the decisions made by me, Jennifer Hatfield MD.
== END 2017-10-05 00:12 | disposition home or self-care (01) ==
LOC: ED 19:52
DX: M62.838 Other muscle spasm (principal); G25.81 Restless legs syndrome; I25.10 Atherosclerotic heart disease of native coronary artery without angina pectoris; E78.00 Pure hypercholesterolemia, unspecified; G47.30 Sleep apnea, unspecified; I12.9 Hypertensive chronic kidney disease with stage 1 through stage 4 chronic kidney disease, or unspecified chronic kidney disease; E11.22 Type 2 diabetes mellitus with diabetic chronic kidney disease; N18.3 Chronic kidney disease, stage 3 (moderate); Z86.718 Personal history of other venous thrombosis and embolism; Z88.5 Allergy status to narcotic agent; Z88.0 Allergy status to penicillin; J44.9 Chronic obstructive pulmonary disease, unspecified; K21.9 Gastro-esophageal reflux disease without esophagitis
CPT/HCPCS: 96372; 99283; A9270-GY; J2060